=== PATIENT | female | born 1940 | race Caucasian/White ===

== ENCOUNTER 2022-09-28 08:10 | Emergency (ER) | payer MEDICARE, OTHER, SELFPAY ==
[2022-09-28 08:41] VITALS: PULSE 60; RESP 16; TEMP 36.6; O2SAT 98; BMI 25.2
[2022-09-28 10:44] VITALS: BP 123/64; PULSE 64; RESP 16; O2SAT 98
[2022-09-28 11:00] VITALS: BP 104/48; PULSE 64; RESP 16; TEMP 36.6; O2SAT 98
--- NOTE | 2022-09-28 11:14 | ED.GENADULT ---
HPI - General Adult General Time Seen by Provider: 11:14 Date Seen: 09/28/22 Chief complaint: Nausea/Vomiting Stated complaint: Nausea Time Seen by Provider: 09/28/22 11:07 Source: patient Mode of arrival: ambulatory Limitations: no limitations History of Present Illness HPI narrative: Patient is an 82 year white female has had 30 year history of nausea, when she was young she reports she had a history of migraine headaches, and thinks it went to her stomach. She has had imaging, endoscopy, without findings. Ene think this is related to anxiety, and she is on Wellbutrin for this. She sees Dr. Ladd for primary care, she denies any bowel change dysuria abdominal pain. She does feel nauseated very similar to what she has had over the last 30 years. She reports that she has not been able to eat much over the last couple of days. No dizziness no dehydration symptoms, no chest pain fever chills cough. No dysuria Related Data Home Medications Medication Instructions Recorded Confirmed alendronate 70 mg tablet 70 mg PO QWEEK 09/27/22 09/28/22 bupropion HCl 300 mg 24 hr tablet, tab PO 09/27/22 09/27/22 extended release hydrochlorothiazide 25 mg tablet 25 mg PO QDAY 09/27/22 09/27/22 lisinopril 10 mg tablet 10 mg PO QDAY 09/27/22 09/27/22 nystatin 100,000 unit/gram topical topical 09/27/22 09/27/22 powder ([facility]) simvastatin 40 mg tablet 40 mg PO QDAY 09/27/22 09/27/22 zolpidem 5 mg tablet 5 mg PO QHS PRN sleep 09/27/22 09/27/22 aspirin 81 mg capsule 81 mg PO DAILY 09/28/22 09/28/22 bupropion HCl 300 mg 24 hr tablet, 300 mg PO DAILY 09/28/22 09/28/22 extended release calcium carbonate 200 mg calcium 200 mg PO DAILY 09/28/22 09/28/22 (500 mg) chewable tablet (Antacid (calcium carbonate)) cyanocobalamin (vitamin B-12) 1,000 mcg PO DAILY 09/28/22 09/28/22 1,000 mcg capsule hydrochlorothiazide 25 mg tablet 25 mg PO DAILY 09/28/22 09/28/22 lisinopril 10 mg tablet 10 mg PO DAILY 09/28/22 09/28/22 simvastatin 40 mg tablet 40 mg PO QHS 09/28/22 09/28/22 zinc acetate 50 mg (zinc) capsule 50 mg PO DAILY 09/28/22 09/28/22 zolpidem 5 mg tablet 5 mg PO QHS 09/28/22 09/28/22 Allergies Allergy/AdvReac Type Severity Reaction Status Date / Time No Known Drug Allergies Allergy Verified 09/28/22 08:36 Review of Systems Status of ROS: Reports: 6 or more systems reviewed and unremarkable except as noted in History and below [facility] Social History Smoking Status: Former smoker How often do you have a drink containing alcohol: never AUDIT-C Alcohol total score: 0 Non-prescribed substance use: denies use service: No Exam Narrative: Exam Narrative: Objective: Patient alert orient x3 Vital signs unremarkable afebrile HEENT unremarkable Neck is supple Chest clear Pulse regular Abdomen benign soft nontender no masses no peritonitis Extremities are no edema Neurologic nonfocal Good peripheral perfusion noted Const: Vital Signs, click to edit/add: Vital Signs - 24 hr 09/28/22 08:41 09/28/22 10:44 09/28/22 11:00 Temperature 97.8 F 97.8 F Pulse Rate [Pulse Oximeter] 60 64 64 Respiratory Rate 16 16 16 Blood Pressure [Le ft Upper Arm] 123/64 104/48 L Pulse Oximetry 98 98 98 Oxygen Delivery Me thod Room Air Room Air Room Air 09/28/22 11:30 09/28/22 12:00 09/28/22 12:30 Temperature Pulse Rate [Pulse Oximeter] Respiratory Rate Blood Pressure [Le ft Upper Arm] 115/60 107/46 L 117/51 L Pulse Oximetry Oxygen Delivery Me thod Course Vital Signs Vital signs: Initial Vital Signs Temperature 97.8 F 09/28/22 08:41 Temperature Source Temporal Artery Scan 09/28/22 08:41 Pulse Rate 60 09/28/22 08:41 Pulse Rhythm 09/28/22 08:41 Pulse Strength 3+ Normal 09/28/22 08:41 Respiratory Rate 16 09/28/22 08:41 Pulse Oximetry 98 09/28/22 08:41 Oxygen Delivery Method 09/28/22 08:41 Vital Signs Temperature 97.8 F 09/28/22 08:41 Pulse Rate 60 09/28/22 08:41 Respiratory Rate 16 09/28/22 08:41 Pulse Oximetry 98 09/28/22 08:41 Oxygen Delivery Method 09/28/22 08:41 Temperature 97.8 F 09/28/22 11:00 Pulse Rate 64 09/28/22 11:00 Respiratory Rate 16 09/28/22 11:00 Blood Pressure 117/51 L 09/28/22 12:30 Pulse Oximetry 98 09/28/22 11:00 Oxygen Delivery Method 09/28/22 11:00 Medical Decision Making MDM Narrative Medical decision making narrative: Patient has a longstanding history of anxiety and nausea, she has had workup for her stomach in the past. This is similar episode that she has had the past. At this point with mutual decision making we decided to check some electrolytes and labs, IV hydration, IV Ativan and Zofran. She was comfortable this plan if her labs look reassuring I think we can let her go home for observation. Again she has no abdominal pain. She should meet with regular doctor next few days to rediscuss. Addendum: The patient's lab studies look reassuring, she feels little better will order go home, update regular doctor next couple of days return as needed. Lab Data Labs: Lab Results 09/28/22 09/28/22 Range/Units 11:50 11:50 WBC 7.72 (4.50-11.00) K/uL RBC 4.88 (4.00-5.20) m/uL Hgb 15.2 (12.0-16.0) gm/dL Hct 44.6 (33.0-51.0) % MCV 91 (80-100) fL MCH 31 (26-34) pg MCHC 34 (32-36) gm/dL RDW Coeff of Sahdy 12.2 (11.5-15.5) % Plt Count 266 (140-440) K/uL Neut % (Auto) 60.5 (42.0-72.0) % Lymph % (Auto) 27.3 (20-44) % [place] % (Auto) 10.8 (0.0-11.0) % Eos % (Auto) 1.0 (0.0-7.0) % Baso % (Auto) 0.1 (0.0-3.0) % Neut # (Auto) 4.67 (1.7-7.0) K/uL Lymph # (Auto) 2.11 (0.90-2.90) K/uL [place] # (Auto) 0.80 (0.00-0.90) K/UL Eos # (Auto) 0.08 (0.00-0.50) K/uL Baso # (Auto) 0.01 (0.00-0.30) K/uL Abs Immat Gran (auto) 0.02 (0.00-0.30) K/uL Imm/Tot Granulo (auto) 0.3 % Sodium 137 (135-149) mmol/L Potassium 4.1 (3.6-5.1) mmol/L Chloride 103 (96-114) mmol/L Carbon Dioxide 22 (20-32) mmol/L BUN 28 (7-30) mg/dL Creatinine 1.3 (0.5-1.5) mg/dL Estimated Creat Clear 29.80 Estimated GFR 42 ml/min Glucose 92 (60-115) mg/dL Calcium 9.6 (8.4-10.6) mg/dL Total Bilirubin 0.8 (0.1-1.5) mg/dL Direct Bilirubin 0.2 (0.0-0.5) mg/dL AST 34 (12-35) U/L ALT 29 (4-35) U/L Alkaline Phosphatase 88 (40-150) U/L C-Reactive Protein < 0.5 L (0.5-1.0) mg/dL Total Protein 7.8 (6.0-8.3) g/dL Albumin 4.9 (3.3-5.0) g/dL Amylase 73 (18-89) U/L Discharge Plan Discharge Clinical Impression: Nausea Patient Disposition: Home w/ Parent or Adult Condition: Improved Additional Instructions: Rest, light activity, resume diet as able, update regular doctor next couple of days, return to ED sooner problems or concerns Activity Level: Light activity Discharge Diet: Regular Diet Detail: Diet as tolerated Prescriptions: No Action lisinopril 10 mg tablet 10 mg PO QDAY zolpidem 5 mg tablet 5 mg PO QHS PRN (Reason: sleep) bupropion HCl 300 mg tablet extended release 24 hr PO nystatin [Nyamyc] 100,000 unit/gram powder topical hydrochlorothiazide 25 mg tablet 25 mg PO QDAY simvastatin 40 mg tablet 40 mg PO QDAY alendronate 70 mg tablet 70 mg PO QWEEK aspirin 81 mg capsule 81 mg PO DAILY bupropion HCl 300 mg tablet extended release 24 hr 300 mg PO DAILY calcium carbonate [Antacid (calcium carbonate)] 200 mg calcium (500 mg) tablet,chewable 200 mg PO DAILY cyanocobalamin (vitamin B-12) 1,000 mcg capsule 1,000 mcg PO DAILY hydrochlorothiazide 25 mg tablet 25 mg PO DAILY lisinopril 10 mg tablet 10 mg PO DAILY simvastatin 40 mg tablet 40 mg PO QHS zinc acetate 50 mg (zinc) capsule 50 mg PO DAILY zolpidem 5 mg tablet 5 mg PO QHS Follow Up/Referrals: Nisha Ladd MD [Primary Care Provider] - Stand Alone Forms: [facility] Info Instructions
[2022-09-28 11:30] VITALS: BP 115/60
[2022-09-28] MEDS: 0.9 % SODIUM CHLORIDE 1000 ml 1,000 ML 6000 ML IV (11:46)
[2022-09-28] MEDS: LORazepam 2 MG/ML inj 0.5 MG IVP (11:46)
[2022-09-28] MEDS: ONDANSETRON 2 MG/ML inj 4 MG IVP (11:46)
[2022-09-28 11:56] LABS: Basophils Absolute Auto 0.01 K/uL (0.00-0.30); Basophils Percent Auto 0.1 % (0.0-3.0); Eosinophils Absolute Auto 0.08 K/uL (0.00-0.50); Hematocrit 44.6 % (33.0-51.0); Hemoglobin* 15.2 gm/dL (12.0-16.0); Immature Granulocytes Abs Auto 0.02 K/uL (0.00-0.30); Immature Granulocytes Pct Auto 0.3 %; Lymphocytes Absolute Auto 2.11 K/uL (0.90-2.90); Lymphocytes Percent Auto 27.3 % (20-44); Mean Corpuscular HGB Conc 34 gm/dL (32-36); Mean Corpuscular Hemoglobin 31 pg (26-34); Mean Corpuscular Volume 91 fL (80-100); Monocytes Percent Auto 10.8 % (0.0-11.0); Neutrophils Absolute Auto 4.67 K/uL (1.7-7.0); Neutrophils Percent Auto 60.5 % (42.0-72.0); Platelet Count* 266 K/uL (140-440); RDW Coefficient of Variation % 12.2 % (11.5-15.5); Red Blood Count 4.88 m/uL (4.00-5.20); White Blood Count* 7.72 K/uL (4.50-11.00)
[2022-09-28 11:59] LABS: Slide Review Reflex No
[2022-09-28 12:00] VITALS: BP 107/46
[2022-09-28 12:14] LABS: Albumin* 4.9 g/dL (3.3-5.0); Chloride* 103 mmol/L (96-114); Potassium* 4.1 mmol/L (3.6-5.1); Sodium* 137 mmol/L (135-149)
[2022-09-28 12:16] LABS: Amylase* 73 U/L (18-89)
[2022-09-28 12:17] LABS: Aspartate Amino Transferase* 34 U/L (12-35); Bilirubin Direct* 0.2 mg/dL (0.0-0.5); Bilirubin Total* 0.8 mg/dL (0.1-1.5); Blood Urea Nitrogen* 28 mg/dL (7-30); Carbon Dioxide* 22 mmol/L (20-32); Creatinine* 1.3 mg/dL (0.5-1.5); Estimated Glomerular Filt Rate 42 ml/min; Total Protein* 7.8 g/dL (6.0-8.3)
[2022-09-28 12:18] LABS: Alanine Aminotransferase* 29 U/L (4-35); Alkaline Phosphatase* 88 U/L (40-150); Calcium* 9.6 mg/dL (8.4-10.6); Glucose* 92 mg/dL (60-115)
--- OUTSIDE RECORDS SUMMARY | 2022-09-28 12:18 | XMS_ITS | Clinical Summary ---
:1940 Author Organization [facility] [place] [address] Care Team Providers Name Role Phone Linette Cotter Unavailable [phone] Shaggy Albrecht MD Unavailable Sridhar La Unavailable Nisha Ladd MD Primary Care Provider Allergies No known active allergies Medications Medication Sig Dispensed Refills Start End Status Date Date aspirin (ECOTRIN) 81 mg Take 1 0 04/25/20 Active enteric coated tablet tablet by 17 mouth once daily with a meal. calcium carbonate Take 1 0 04/25/20 Ac tive (CALCIUM ANTACID) 200 mg tablet by 17 calcium (500 mg) mouth once chewable tablet daily. cyanocobalamin (VITAMIN Take 1 90 tablet 0 04/03/20 Active B-12) 1,000 mcg tablet by 19 tabletIndications: B12 mouth once deficiency daily. hydroCHLOROthiazide Take 1 90 Tablet 3 02/16/20 Active (HCTZ) 25 mg Tablet (25 22 tabletIndications: mg) by mouth Essential hypertension once daily. simvastatin (ZOCOR) 40 Take 1 90 tablet. 3 02/16/20 Active mg tabletIndications: Tablet (40 22 Pure mg) by mouth hypercholesterolemia at bedtime. alendronate (FOSAMAX) 70 Take 1 12 tablet. 3 02/16/20 Active mg tabletIndications: Tablet (70 22 Compression fracture of mg) by mouth twelfth thoracic once a week vertebra with routine in the healing, Osteoporosis, morning. unspecified osteoporosis Take on type, unspecified empty pathological fracture stomach with presence full glass of water. Do not lie down for 1 hr. miscellaneous medical As directed. 1 Each 0 02/16/20 Active supply (Blood Pressure 22 Cuff) miscIndications: Essential hypertension durable medical Automated 1 Each 0 02/16/20 Acti ve equipment home BP 22 (DME)Indications: cuff. Length Essential hypertension of need: 99 lisinopriL (PRINIVIL; Take 1 90 Tablet 3 03/15/20 Active ZESTRIL) 10 mg Tablet (10 22 tabletIndications: mg) by mouth Essential hypertension once daily. buPROPion (WELLBUTRIN TAKE ONE 90 tablet. 3 04/16/20 Active XL) 300 mg TABLET BY 22 Extended-Release MOUTH EVERY tabletIndications: MORNING PT Moderate episode of will call recurrent major when needed depressive disorder (HC) [facility] APPLY ONE 60 g 9 05/26/20 Active powderIndications: Yeast STRIP 22 infection of the skin TOPICALLY TO AFFECTED AREA(S) THREE TIMES DAILY zolpidem (AMBIEN) 5 mg TAKE ONE 30 Tablet 0 09/15/20 Active tabletIndications: TABLET BY 22 Anxiety state MOUTH AT BEDTIME NEEDED FOR SLEEP zinc 50 mg tablet Take 1 0 09/23/20 Ac tive Tablet (50 22 mg) by mouth once daily. zolpidem (AMBIEN) 5 mg TAKE ONE 30 Tablet 0 01/09/20 Discontinued tabletIndications: TABLET BY 022 Anxiety state MOUTH EVERY DAY AT BEDTIME NEEDED FOR SLEEP mirtazapine (REMERON) 15 TAKE 15 Tablet 0 05/17/2009/23 Discontinued mg tabletIndications: ONE-HALF 022 (*Med Moderate episode of TABLET (7.5 ineffective) recurrent major MG) BY MOUTH depressive disorder (HC) AT BEDTIME busPIRone (BUSPAR) 15 mg TAKE ONE 180 Tablet 0 08/14/20 12/0 10/25 Discontinued tabletIndications: TABLET BY 022 ( *Med Generalized anxiety MOUTH EVERY ineffective) disorder MORNING AND TAKE TWO TABLETS BY MOUTH AT BEDTIME Active Problems Problem Noted Date Major depression, recurrent 07/31/2018 Generalized anxiety disorder 07/31/2018 Compression fracture of twelfth thoracic vertebra with routine healing 06/15/2016 Overview: Fosamax 07/2016, continue x10 years. Osteopenia 06/15/2016 Pyoderma gangrenosa 02/19/2013 Irritable bowel syndrome 08/05/2011 Overview: GI consult from 05/2010 Prediabetes 06/24/2011 Anxiety state, unspecified 05/13/2011 Major depression, recurrent 04/08/2011 PLMD (periodic limb movement disorder) 08/31/2010 RAFAELA 07/2010 AHI-12 PLMD found as well 08/31/2010 Colon polyp 04/21/2010 Overview: Colonoscopy 2002 - repeat in 5 years rec ommended Colonoscopy 04/2008 - no polyps seen, rep eat 5 years given hx of polyp Colonoscopy 07/2013 diverticulosis repea t in 5 years CAD (coronary artery disease) 09/18/2008 Postsurgical percutaneous transluminal coronary angiop lasty status 06/07/2007 Overview: -04/21/07 S/P 1. Left main, Circumflex, R CA: Normal. 2. LAD: Normal vessel, but w/ a long narrow distal vessel which is intramyocardial w/ mild bridging. 5. LV: Normal L vent EF, LVEF of 65% w/ no focal wall motion abnormality. LVEDP 17 pre & 16 post L ventriculogram.(Dr Lawson) Esophageal reflux Overview: EGD 02/2009 Reactive gastropathy Unspecified essential hypertension Pure hypercholesterolemia Other nonspecific abnormal cardiovascular system funct ion study Overview: Stress echocardiogram 04/14/07 Stress test terminated due to an 8 beat run of VT Negative subjectively Echo images revealed LV dilatation and e xercise induced global hypokinesia at low workload CTA 04/18/07 Moderate, nonobstructive CAD EF 75% with no regional WMA Stress echocardiogram 04/21/07 LV dilatation with SVT (verbal report fr Dr. Nash) Obesity, unspecified Resolved Problems Problem Noted Date Resolved Date Major depressive disorder, recurrent episode, severe, 201011/21/2012 without mention of psychotic behavior RAFAELA 07/2010 AHI-12 08/31/2010 08/31/2010 RAFAELA 07/2010 AHI-12 08/31/2010 08/31/2010 NONSUSTAINED VENTRICULAR TACHYCARDIA 06/07/2007 Depressive disorder, not elsewhere classified 11/21/2012 Other and unspecified angina pectoris Encounters Date Type Specialty Care Team Description 09/23/2022 Office Visit FlorValJessica w Up DIRECTOR OF PERSONNEL 09/23/2022 Travel 09/12/2022 Refill Nisha Ladd, Fiordalizai ll Request (Zolpidem) 08/13/2022 Refill Val Ray Refil l Request (Buspirone) DIRECTOR OF PERSONNEL from Last 3 Months Immunizations Name Administration Dates Next Due AMB Influenza, IIV3 (Age >=3 08/22/2008 years)(Flu Clinic Only) AMB Influenza, IIV4 PF (=>6 mos 08/02/2013 Flulaval,Fluzone Fluarix)(Flu Clinic Only) Amb Influenza, Inactivated AIIV4 (Age 1008/07/2020 65+ Years) Preserv Free COVID-19 vaccine (Morph[employer]abs 02/15/2022 30mcg/0.3mL) 12YO+ ED-SUCROSE PF, MDV COVID-19 vaccine (Morphlabs 01/21/2021, 12/31/2020 30mcg/0.3mL) PF, MDV Influenza A (H1N1), Inactivated (Age 0110/28/2009 >=3 Years) Influenza, High-dose Inactivated 08/16/2016, 07/15/2015, 03/2014 Influenza, IIV3 (Age >=3 years) 08/25/2012, 08/05/2011, 04/2010, 10/28/2009, 09/01/2007 Influenza, Inactivated AIIV4 (Age 65+ 07/27/2021 Years) Preserv Free Influenza, Inactivated IIV3 (Age 65+ 07/31/2019, 07/17/2018, 08/15/2017 Years) Preserv Free Pneumococcal Poly,23-Valent 06/10/2008 (Pneumovax) Pneumococcal conj 13-Valent (Prevnar 07/15/2015 13) Td (Age >=7 Years) 04/19/2005 Tdap 06/18/2011 Zoster (Shingrix-RZV, recombinant) 10/31/2020, 08/11/2020 Family History Medical History Relation Name Comments Heart Disease Maternal Grandfather NH 60' s Heart Disease Mother stent Hyperlipidemia Mother Cancer-breast No Family History Relation Name Status Comments Maternal Grandfather Mother Social History Tobacco Use Types Packs/Day Years Used Date Former Smoker Cigarettes 1 20 Quit: 10/24/18 92 Smokeless Tobacco: Never Used Tobacco Cessation: Counseling Given: Yes Comments: quit many years ago Alcohol Use Standard Drinks/Week Comments No 0 (1 standard drink = 0.6 oz pure alcoho l) very rare Alcohol Habits Answer Date Recorded How often do you have a drink containing alcohol? Not asked How many drinks containing alcohol do you have on a typical Not asked day when you are drinking? How often do you have six or more drinks on one occasion? 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 Temperature 36.8 ??C (98.2 ??F) 06/17/2020 1:58 PM CDT Respiratory Rate 20 11/19/2019 1:45 PM 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 IRONWORKER HELPER Oxygen Saturation 99% 04/16/2022 11:38 AM CDT Inhaled Oxygen Concentration - - Weight 68.2 kg (150 lb 6.4 oz) 09/23/2022 3:26 PM 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 Height 157.5 cm (5' 2) 05/13/2021 3:00 PM CDT Body Mass Index 27.51 05/13/2021 3:00 PM CDT Plan of Treatment Upcoming Encounters Date Type Specialty Care Team Description 11/02/2022 Office Visit Val Ray NP [address] [place], [place] [phone] (Wo rk) Health Maintenance Due Date Last Done Comments Medicare Wellness for age 65+ 11/22/2020 11/23/2019, 2015, 06/17/2011 Tetanus booster 06/18/2021 06/18/2011, 04/19/2005 BMI (ht and wt on same day) for 05/13/2022 05/13/2021, 11/24, age 18+ 03/25/2020, Additional history exists Influenza for age 65+ 06/24/2022 07/27/2021, 08/07/2020, 07/31/2019, Additional history exists Depression screening for age 12+ 09/23/2023 09/23/2022, , 02/16/2022, Additional history exists Tdap Completed 06/18/2011 Pneumococcal series for age 65+ Completed 07/15/2015, 05/24 Zoster (shingles) series for age Completed 10/31/2020, 50+ DEXA/DXA scan for age 65+ Completed 02/16/2022, 03/09/2016 , 08/17/2011, Additional history exists COVID-19 vaccine series Completed 07/26/2022, 02/15/2022, 08/04/2021, Additional history exists Results Not on filefrom Last 3 Months Insurance Payer Benefit Plan / Subscriber ID Effective Dates Phone Addre ss Type Group MEDICARE PART B MEDICARE PART B [id number] 2007-Present ATTN: CLAIMS - HB USE ONLY HB ONLY [address] [place] [address] MEDICA MR MEDICA PRIME [id number] 2014-Present [address] [address] [place] [address] Advance Directives Documents on File Type Date Recorded 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
[2022-09-28 12:23] LABS: C Reactive Protein* < 0.5 mg/dL (0.5-1.0)
[2022-09-28 12:30] VITALS: BP 117/51
== END 2022-09-28 12:44 | disposition home or self-care (01) ==
LOC: ED 11:36
PROVIDERS: Emergency Provider Family Medicine; PCP Family Medicine
DX: R11.0 Nausea (principal)
CPT/HCPCS: 36415; 80048; 80076; 82150; 85025; 86140; 96374; 96375; 99283; 99284; J2060; J2405; J7030

== ENCOUNTER 2022-10-23 12:49 | Emergency (ER) | payer MEDICARE, OTHER, SELFPAY ==
[2022-10-23] VITALS (17 sets, daily range): BP systolic 98–138; BP diastolic 44–88; PULSE 60–91; RESP 18–22; TEMP 36.3; O2SAT 98–100; BMI 25.6
--- NOTE | 2022-10-23 13:20 | ED.GENADULT ---
HPI - General Adult General Time Seen by Provider: 13:20 Date Seen: 10/23/22 Chief complaint: Weakness Stated complaint: Can't eat or drink, shaking Time Seen by Provider: 10/23/22 12:51 Source: patient and RN notes reviewed Mode of arrival: ambulatory Limitations: no limitations History of Present Illness HPI narrative: Patient is an 82-year-old female coming in with her daughter with complaint of nausea that is worsening. She has an oral medicine that she uses that dissolves in her mouth that isn't helping any longer. She admits this is been present for years. She does not think she has had a scope recently. She has had about a 50 lb weight loss in the last year. Her daughter told nursing staff that she feels it might be her depression. Patient quit her antidepressant of few months ago. She just can not eat due to the nausea. Denies any blood in stools. No abdominal pain with this. No headaches. She has not been remotely sick with this. Patient states she is coming to the ER as she cannot get into the clinic, it is difficult to get into the clinic. She does have an upcoming appointment this coming Tuesday next week. Related Data Home Medications Medication Instructions Recorded Confirmed alendronate 70 mg tablet 70 mg PO QWEEK 09/27/22 09/28/22 bupropion HCl 300 mg 24 hr tablet, tab PO 09/27/22 09/27/22 extended release hydrochlorothiazide 25 mg tablet 25 mg PO QDAY 09/27/22 09/27/22 lisinopril 10 mg tablet 10 mg PO QDAY 09/27/22 09/27/22 nystatin 100,000 unit/gram topical topical 09/27/22 09/27/22 powder ([facility]) simvastatin 40 mg tablet 40 mg PO QDAY 09/27/22 09/27/22 zolpidem 5 mg tablet 5 mg PO QHS PRN sleep 09/27/22 09/27/22 aspirin 81 mg capsule 81 mg PO DAILY 09/28/22 09/28/22 bupropion HCl 300 mg 24 hr tablet, 300 mg PO DAILY 09/28/22 09/28/22 extended release calcium carbonate 200 mg calcium 200 mg PO DAILY 09/28/22 09/28/22 (500 mg) chewable tablet (Antacid (calcium carbonate)) cyanocobalamin (vitamin B-12) 1,000 mcg PO DAILY 09/28/22 09/28/22 1,000 mcg capsule hydrochlorothiazide 25 mg tablet 25 mg PO DAILY 09/28/22 09/28/22 lisinopril 10 mg tablet 10 mg PO DAILY 09/28/22 09/28/22 simvastatin 40 mg tablet 40 mg PO QHS 09/28/22 09/28/22 zinc acetate 50 mg (zinc) capsule 50 mg PO DAILY 09/28/22 09/28/22 zolpidem 5 mg tablet 5 mg PO QHS 09/28/22 09/28/22 Allergies Allergy/AdvReac Type Severity Reaction Status Date / Time No Known Drug Allergies Allergy Verified 10/23/22 13:05 [facility] Social History Smoking Status: Former smoker How often do you have a drink containing alcohol: never AUDIT-C Alcohol total score: 0 Non-prescribed substance use: denies use service: No Exam Const: Vital Signs, click to edit/add: Vital Signs - 24 hr 10/23/22 13:07 10/23/22 14:02 10/23/22 13:36 Temperature 97.4 F L Pulse Rate 61 Pulse Rate [Pulse Oximeter] 76 91 Respiratory Rate 22 18 Blood Pressure Blood Pressure [Ri ght Forearm] 138/84 98/62 Pulse Oximetry 98 100 [facility] 10/23/22 14:00 10/23/22 14:02 10/23/22 14:15 Temperature Pulse Rate 61 61 60 Pulse Rate [Pulse Oximeter] Respiratory Rate Blood Pressure 98/62 Blood Pressure [Ri ght Forearm] Pulse Oximetry 100 99 100 Oxygen Delivery Me od 10/23/22 14:30 10/23/22 14:31 10/23/22 14:45 Temperature Pulse Rate 62 62 63 Pulse Rate [Pulse Oximeter] Respiratory Rate Blood Pressure 105/56 L Blood Pressure [Ri ght Forearm] Pulse Oximetry 100 100 99 Oxygen Delivery Me thod 10/23/22 15:00 10/23/22 15:02 10/23/22 15:15 Temperature Pulse Rate 62 62 62 Pulse Rate [Pulse Oximeter] Respiratory Rate Blood Pressure 105/88 Blood Pressure [Ri ght Forearm] Pulse Oximetry 99 100 98 Oxygen Delivery Me od 10/23/22 15:30 10/23/22 15:32 Temperature Pulse Rate 62 62 Pulse Rate [Pulse Oximeter] Respiratory Rate Blood Pressure 116/44 L Blood Pressure [Ri ght Forearm] Pulse Oximetry 100 100 Oxygen Delivery Me thod Documenting provider has reviewed patient's vital signs: yes Common normals: no apparent distress, average body habitus, oriented x3, no limitations, healthy appearing and alert General appearance: cooperative, comfortable, well kempt and well developed HENMT: Common normals: normocephalic, head/scalp atraumatic, hearing grossly normal bilaterally, external ears normal, external nose normal, nasal mucous membranes and turbinates normal, moist oral mucous membranes, oropharynx normal, dentition normal and gingiva normal Head and scalp: normocephalic and atraumatic Nose: external nose normal and nasal mucous membranes and turbinates normal External ear: external ears normal Eye: Common normals: PERRL, EOMs intact bilaterally, conjunctivae normal and no scleral icterus Conjunctiva: conjunctiva(e) normal Pupil: PERRL Neck & C-Spine: Common normals: full ROM, no lymphadenopathy, supple, no meningeal signs, no JVD and thyroid normal Thyroid: thyroid normal Chest: Common normals: inspection of chest normal (Mild kyphosis) Resp: Common normals: normal respiratory effort, no retractions, no use of accessory muscles and clear to auscultation bilaterally Effort & inspection: able to speak in complete sentences Auscultation: clear to auscultation bilaterally Cardio: Common normals: no JVD, regular rate, regular rhythm, S1 normal heart sound, S2 normal heart sound, no gallops, no clicks and no murmurs Rate: regular rate Rhythm: regular rhythm Heart sounds: S1 normal and S2 normal GI: Common normals: Normal to inspection, nondistended, normoactive bowel sounds present, soft to palpation, non-tender, no hepatosplenomegaly and no masses Palpation: soft and no hepatosplenomegaly Extremity: Common normals: normal to inspection, full ROM, normal capillary refill, no joint enlargement, no clubbing, cyanosis or edema, no calf tenderness and no pedal edema Neuro: Common normals: oriented x3 Sensorium/orientation: alert Meningeal signs: no meningeal signs Psych: Appearance: well kempt Course Course Hospital Course: Will initiate some IV fluids, give her IV Zofran. We will do baseline labs including a TSH. The workup of nausea in itself can be extensive. Labs are normal, do not know that she requires any emergent intervention. She may need endoscopy which would not happen emergently in her setting. She clinically is not indicated to have this emergently. Head imaging could be considered but without any other symptoms, doubt that is going to elucidate anything significant. Likewise, same train of thought for me on abdominal imaging. She is not having any abdominal pain with this. Reevaluation(s) Reevaluation #1: Have reviewed with patient and her daughter that her labs are looking normal at this time. They wanted to know how dehydrated she looked down labs. Reviewed with them that her BUN and her bicarb were normal, thus not clinically looking that significantly dehydrated. We did review that we had not obtained urinalysis. Patient does not really feel like urinary symptoms would be the cause of her chronic nausea. I would tend to agree with her. We discussed head CT imaging, she used to have headaches and stated that the headaches went away and then the nausea started. The nausea has been going on for years. She has tried omeprazole before, did not feel like it helped. She does not feel like the IV Zofran helped. Reviewed with her that coming to the ER is part of a problem in a chronic issue like this. I do not know what medicines have been tried, do not have a good grasp of what she is failed in the past. As far as abdominal imaging, she has maybe had 2 episodes of emesis over the last 3 months, emesis is not common for her. She has no abdominal pain. Thus, do not feel that CT imaging of her abdomen is needed emergently at this time in the setting of normal labs and a completely normal abdominal exam. Did offer to consider putting her on a proton pump inhibitor but given that she states she has tried omeprazole and it did not work, feel she maybe be best suited to work through some of this with her upcoming appointment with her doctor on Tuesday. Can give her a small prescription for Compazine and see if that does help her. Time: 14:47 Reevaluation #2: Reviewed with patient and her daughter that the TSH is mildly suppressed but the free T4 is normal. We are waiting the free T3 result but that is a send out and will not be back for days. It is possible she could have some form of hyper thyroidism which certainly can cause nausea. She has no other cardiac complications like tachycardia at this time. She has a clinic follow-up in on Tuesday and will discharge for further outpatient evaluation. Time: 15:57 Vital Signs Vital signs: Initial Vital Signs Temperature 97.4 F L 10/23/22 13:07 Temperature Source Temporal Artery Scan 10/23/22 13:07 Pulse Rate 76 10/23/22 13:07 Pulse Rhythm 10/23/22 13:07 Respiratory Rate 22 10/23/22 13:07 Blood Pressure 138/84 10/23/22 13:07 Blood Pressure Mean 102 10/23/22 13:07 Blood Pressure Position Supine 10/23/22 13:07 Pulse Oximetry 98 10/23/22 13:07 Oxygen Delivery Method 10/23/22 13:07 Vital Signs Temperature 97.4 F L 10/23/22 13:07 Pulse Rate 76 10/23/22 13:07 Respiratory Rate 22 10/23/22 13:07 Blood Pressure 138/84 10/23/22 13:07 Pulse Oximetry 98 10/23/22 13:07 Oxygen Delivery Method 10/23/22 13:07 Temperature 97.4 F L 10/23/22 13:07 Pulse Rate 62 10/23/22 15:32 Respiratory Rate 18 10/23/22 14:02 Blood Pressure 116/44 L 10/23/22 15:32 Pulse Oximetry 100 10/23/22 15:32 Oxygen Delivery Method 10/23/22 14:02 Medical Decision Making Lab Data Lab results reviewed: Yes I reviewed the patient's lab results Labs: Lab Results 10/23/22 10/23/22 10/23/22 Range/Units 13:40 13:40 13:40 WBC 7.50 (4.50-11.00) K/uL RBC 4.75 (4.00-5.20) m/uL Hgb 14.8 (12.0-16.0) gm/dL Hct 44.1 (33.0-51.0) % MCV 93 (80-100) fL MCH 31 (26-34) pg MCHC 34 (32-36) gm/dL RDW Coeff of Shady 12.3 (11.5-15.5) % Plt Count 236 (140-440) K/uL Neut % (Auto) 64.1 (42.0-72.0) % Lymph % (Auto) 22.9 (20-44) % Oliver % (Auto) 11.2 H (0.0-11.0) % Eos % (Auto) 1.3 (0.0-7.0) % Baso % (Auto) 0.1 (0.0-3.0) % Neut # (Auto) 4.80 (1.7-7.0) K/uL Lymph # (Auto) 1.72 (0.90-2.90) K/uL Oliver # (Auto) 0.80 (0.00-0.90) K/UL Eos # (Auto) 0.10 (0.00-0.50) K/uL Baso # (Auto) 0.01 (0.00-0.30) K/uL Sodium 138 (135-149) mmol/L Potassium 4.1 (3.6-5.1) mmol/L Chloride 107 (96-114) mmol/L Carbon Dioxide 22 (20-32) mmol/L BUN 21 (7-30) mg/dL Creatinine 1.5 (0.5-1.5) mg/dL Estimated Creat Clear 23.66 Estimated GFR 35 ml/min Glucose 81 (60-115) mg/dL Lactate 1.5 (0.5-1.9) mmol/L Calcium 10.3 (8.4-10.6) mg/dL Total Bilirubin 0.8 (0.1-1.5) mg/dL AST 24 (12-35) U/L ALT 24 (4-35) U/L Alkaline Phosphatase 89 (40-150) U/L C-Reactive Protein < 0.5 L (0.5-1.0) mg/dL NT-Pro-B Natriuret Pep 359 pg/mL Total Protein 7.5 (6.0-8.3) g/dL Albumin 4.6 (3.3-5.0) g/dL Lipase 100 (23-300) U/L TSH (0.270-4.200) uIU/mL Free T4 (0.70-1.85) ng/dL SARS-CoV-2 (PCR) (Negative) POC Troponin I (0.01-0.04) ng/ml 10/23/22 10/23/22 10/23/22 Range/Units 13:40 13:40 13:45 WBC (4.50-11.00) K/uL RBC (4.00-5.20) m/uL Hgb (12.0-16.0) gm/dL Hct (33.0-51.0) % MCV (80-100) fL MCH (26-34) pg MCHC (32-36) gm/dL RDW Coeff of Shady (11.5-15.5) % Plt Count (140-440) K/uL Neut % (Auto) (42.0-72.0) % Lymph % (Auto) (20-44) % Oliver % (Auto) (0.0-11.0) % Eos % (Auto) (0.0-7.0) % Baso % (Auto) (0.0-3.0) % Neut # (Auto) (1.7-7.0) K/uL Lymph # (Auto) (0.90-2.90) K/uL Oliver # (Auto) (0.00-0.90) K/UL Eos # (Auto) (0.00-0.50) K/uL Baso # (Auto) (0.00-0.30) K/uL Sodium (135-149) mmol/L Potassium (3.6-5.1) mmol/L Chloride (96-114) mmol/L Carbon Dioxide (20-32) mmol/L BUN (7-30) mg/dL Creatinine (0.5-1.5) mg/dL Estimated Creat Clear Estimated GFR ml/min Glucose (60-115) mg/dL Lactate (0.5-1.9) mmol/L Calcium (8.4-10.6) mg/dL Total Bilirubin (0.1-1.5) mg/dL AST (12-35) U/L ALT (4-35) U/L Alkaline Phosphatase (40-150) U/L C-Reactive Protein (0.5-1.0) mg/dL NT-Pro-B Natriuret Pep pg/mL Total Protein (6.0-8.3) g/dL Albumin (3.3-5.0) g/dL Lipase (23-300) U/L TSH 0.079 L (0.270-4.200) uIU/mL Free T4 1.22 (0.70-1.85) ng/dL SARS-CoV-2 (PCR) Negative SARS-CoV-2 (Negative) POC Troponin I 0.00 L (0.01-0.04) ng/ml Critical Care Time Critical Care Time Critical Care Time: No Discharge Plan Discharge Clinical Impression: Chronic nausea, Abnormal TSH Patient Disposition: Home, Self-Care Condition: Stable Instructions: Hyperthyroidism (ED), Acute Nausea and Vomiting (ED) Additional Instructions: Your TSH was mildly suppressed at 0.079 but the free T4 was normal at 1.22. We have a free T3 level pending but that is a send out test. You need to keep your clinic appointment for this coming Tuesday. Can try Compazine and see if that helps your nausea. If you feel you are worsening in the interim, have new concerns, please seek re-evaluation and in the ED if need be. If the free T3 level does come back elevated, this could signify that you are developing hyper thyroidism. Endocrinology referral may be needed in this situation. Prescriptions: No Action lisinopril 10 mg tablet 10 mg PO QDAY zolpidem 5 mg tablet 5 mg PO QHS PRN (Reason: sleep) bupropion HCl 300 mg tablet extended release 24 hr PO nystatin [Nyamyc] 100,000 unit/gram powder topical hydrochlorothiazide 25 mg tablet 25 mg PO QDAY simvastatin 40 mg tablet 40 mg PO QDAY alendronate 70 mg tablet 70 mg PO QWEEK aspirin 81 mg capsule 81 mg PO DAILY bupropion HCl 300 mg tablet extended release 24 hr 300 mg PO DAILY calcium carbonate [Antacid (calcium carbonate)] 200 mg calcium (500 mg) tablet,chewable 200 mg PO DAILY cyanocobalamin (vitamin B-12) 1,000 mcg capsule 1,000 mcg PO DAILY hydrochlorothiazide 25 mg tablet 25 mg PO DAILY lisinopril 10 mg tablet 10 mg PO DAILY simvastatin 40 mg tablet 40 mg PO QHS zinc acetate 50 mg (zinc) capsule 50 mg PO DAILY zolpidem 5 mg tablet 5 mg PO QHS Follow Up/Referrals: Nisha Ladd MD [Primary Care Provider] - Stand Alone Forms: [employer] Info Instructions
[2022-10-23] MEDS: ONDANSETRON 2 MG/ML inj 4 MG IVP (13:58)
[2022-10-23] MEDS: 0.9 % SODIUM CHLORIDE 1000 ml 1,000 ML 500 ML IV (13:58)
[2022-10-23 14:00] LABS: Lactate* 1.5 mmol/L (0.5-1.9)
[2022-10-23 14:03] LABS: Basophils Absolute Auto 0.01 K/uL (0.00-0.30); Basophils Percent Auto 0.1 % (0.0-3.0); Eosinophils Percent Auto 1.3 % (0.0-7.0); Hematocrit 44.1 % (33.0-51.0); Hemoglobin* 14.8 gm/dL (12.0-16.0); Immature Granulocytes Abs Auto 0.03 K/uL (0.00-0.30); Immature Granulocytes Pct Auto 0.4 %; Lymphocytes Absolute Auto 1.72 K/uL (0.90-2.90); Lymphocytes Percent Auto 22.9 % (20-44); Mean Corpuscular HGB Conc 34 gm/dL (32-36); Mean Corpuscular Hemoglobin 31 pg (26-34); Mean Corpuscular Volume 93 fL (80-100); Monocytes Percent Auto 11.2 % (0.0-11.0); Neutrophils Percent Auto 64.1 % (42.0-72.0); Platelet Count* 236 K/uL (140-440); RDW Coefficient of Variation % 12.3 % (11.5-15.5); Red Blood Count 4.75 m/uL (4.00-5.20)
[2022-10-23 14:07] LABS: Slide Review Reflex No
[2022-10-23 14:26] LABS: Albumin* 4.6 g/dL (3.3-5.0); Chloride* 107 mmol/L (96-114)
[2022-10-23 14:27] LABS: Potassium* 4.1 mmol/L (3.6-5.1); Sodium* 138 mmol/L (135-149)
[2022-10-23 14:29] LABS: Alkaline Phosphatase* 89 U/L (40-150); Aspartate Amino Transferase* 24 U/L (12-35); Bilirubin Total* 0.8 mg/dL (0.1-1.5); Carbon Dioxide* 22 mmol/L (20-32); Creatinine* 1.5 mg/dL (0.5-1.5); Est. Creatinine Clearance* 23.66; Estimated Glomerular Filt Rate 35 ml/min; Total Protein* 7.5 g/dL (6.0-8.3)
[2022-10-23 14:29] LABS: SARS PCR* Negative SARS-CoV-2 (Negative)
[2022-10-23 14:30] LABS: Alanine Aminotransferase* 24 U/L (4-35); Blood Urea Nitrogen* 21 mg/dL (7-30); Calcium* 10.3 mg/dL (8.4-10.6); Glucose* 81 mg/dL (60-115); Lipase* 100 U/L (23-300)
[2022-10-23 14:35] LABS: C Reactive Protein* < 0.5 mg/dL (0.5-1.0)
[2022-10-23 14:40] LABS: NT Pro B Type NatriureticPept* 359 pg/mL
[2022-10-23 15:01] LABS: TSH With Reflex to FT4* 0.079 uIU/mL (0.270-4.200)
[2022-10-23 15:35] LABS: Free T4 Free Thyroxine* 1.22 ng/dL (0.70-1.85)
[2022-10-26 05:51] LABS: Free T3 3.2 pg/mL (2.5-4.3)
== END 2022-10-23 16:17 | disposition home or self-care (01) ==
PROVIDERS: Emergency Provider Family Medicine; PCP Family Medicine
DX: R11.0 Nausea (principal)
CPT/HCPCS: 36415; 80053; 83605; 83690; 83880; 84439; 84443; 84481; 84484; 85025; 86140; 87635; 94761; 96374; 99284; J2405; J7030

== ENCOUNTER 2022-11-09 09:11 | Outpatient (CLI) | payer MEDICARE, OTHER, SELFPAY ==
[2022-11-09 11:21] LABS: Creatinine* 1.8 mg/dL (0.5-1.5); Estimated Glomerular Filt Rate 28 ml/min
== END 2022-11-09 09:12 | disposition home or self-care (01) ==
LOC: CT 09:13
PROVIDERS: PCP Family Medicine; Visit Provider Internal Medicine Gastroenterology
DX: R11.2 Nausea with vomiting, unspecified (principal); K44.9 Diaphragmatic hernia without obstruction or gangrene
CPT/HCPCS: 36415; 82565

== ENCOUNTER 2022-11-11 07:47 | Outpatient (CLI) | payer MEDICARE, OTHER, SELFPAY ==
--- NOTE | 2022-11-11 08:00 | CRLHL7_ITS ---
For Patients: As a result of the Century Cures Act, medical imaging exams and procedure reports are released immediately into your electronic medical record. You may view this report before your referring provider. If you have questions, please contact your health care provider. Indication: NAUSEA AND VOMITING IN ADULT Technique: Noncontrast CT abdomen and pelvis Please note that all CT scans at this facility use dose modulation, iterative reconstruction, and/or weight-based dosing when appropriate to reduce radiation dose to as low as reasonably achievable. Comparison: 06/17/2010 Findings: Lung bases are clear. Mitral annular calcifications. 4.6 cm hiatal hernia. Gallbladder absent. No biliary obstruction. Spleen is normal. Normal adrenal glands. Kidneys are normal. Mild pancreatic atrophy. Atherosclerotic disease. No aneurysm. Subcentimeter retroperitoneal lymph nodes. Bladder nondistended. Normal uterus. Ovaries normal. No bowel obstruction, free air, free fluid or abscess. The appendix is normal. T12 compression fracture, moderate. This appears chronic although new since 2009. Impression: No evidence of bowel obstruction or enteritis/colitis. 4.6 cm hiatal hernia. Status post cholecystectomy without evidence of common bowel duct stone. Chronic T12 fracture. No evidence of significant constipation. Please note that all CT scans at this facility use dose modulation, iterative reconstruction, and/or weight-based dosing when appropriate to reduce radiation dose to as low as reasonably achievable. Dictated by Jesus Daniel MD @ 11/11/2022 10:06:50 AM (Electronically Signed)
== END 2022-11-11 07:48 | disposition home or self-care (01) ==
PROVIDERS: PCP Family Medicine; Visit Provider Internal Medicine Gastroenterology
DX: R11.2 Nausea with vomiting, unspecified (principal); K44.9 Diaphragmatic hernia without obstruction or gangrene
CPT/HCPCS: 74176

== ENCOUNTER 2023-07-22 11:15 | Outpatient (RCR) | payer MEDICARE, OTHER, SELFPAY | END 2023-07-22 12:04 | disposition home or self-care (01) | PROVIDERS: PCP Family Medicine; Visit Provider Family Medicine | DX: M54.6 Pain in thoracic spine (principal); Z51.89 Encounter for other specified aftercare; M79.603 Pain in arm, unspecified; R53.1 Weakness | CPT/HCPCS: 97110; 97140; 97161; 97530 ==

== ENCOUNTER 2023-09-15 20:34 | Emergency (ER) | payer MEDICARE, OTHER, SELFPAY ==
[2023-09-15 20:43] VITALS: BP 147/70; PULSE 72; RESP 20; TEMP 36.7; O2SAT 99; BMI 24.9
--- NOTE | 2023-09-15 20:54 | CRLHL7_ITS ---
For Patients: As a result of the Cures Act, medical imaging exams and procedure reports are released immediately into your electronic medical record. You may view this report before your referring provider. If you have questions, please contact your health care provider. Indication: Trauma. Technique: Pelvis, 2 views. Comparison: None. Findings/Impression: Bones: Alignment is normal. No displaced fractures or bone lesions. Joint spaces: Unremarkable. Soft tissues: Unremarkable. Dictated by Simon Esqueda MD @ 09/15/2023 9:30:22 PM (Electronically Signed)
--- NOTE | 2023-09-15 20:57 | ED.FALL ---
HPI - Fall General Chief Complaint: Fall/Minor Trauma Stated Complaint: fall Time Seen by Provider: 09/15/23 20:42 History of Present Illness HPI Narrative: This 83-year-old female comes in with pain in her right buttock from a fall that occurred a couple days ago. She states that she did not have much pain at the time that she fell but now has lots of pain when and weight-bearing on her right leg. She does not have any pain when sitting or at rest and nonweightbearing. She fell a couple days ago but did not hit her head or have loss of consciousness. She does not report any other injury. She is not on any anticoagulants. Her medical record shows that she takes a baby aspirin but she states that she typically does not do this. Related Data Home Medications Medication Instructions Recorded Confirmed alendronate 70 mg tablet 70 mg PO QWEEK 09/27/22 09/15/23 lisinopril 10 mg tablet 10 mg PO QDAY 09/27/22 09/15/23 simvastatin 40 mg tablet 40 mg PO QDAY 09/27/22 09/15/23 zolpidem 5 mg tablet 5 mg PO QHS PRN sleep 09/27/22 09/15/23 aspirin 81 mg capsule 81 mg PO DAILY 09/28/22 09/15/23 bupropion HCl 300 mg 24 hr tablet, 300 mg PO DAILY 09/28/22 09/15/23 extended release calcium carbonate 200 mg calcium 200 mg PO DAILY 09/28/22 09/15/23 (500 mg) chewable tablet (Antacid (calcium carbonate)) cyanocobalamin (vitamin B-12) 1,000 mcg PO DAILY 09/28/22 09/15/23 1,000 mcg capsule hydrochlorothiazide 25 mg tablet 25 mg PO DAILY 09/28/22 09/15/23 zinc acetate 50 mg (zinc) capsule 50 mg PO DAILY 09/28/22 09/15/23 omeprazole 20 mg capsule,delayed 20 mg PO DAILY 09/15/23 09/15/23 release Previous Rx's Medication Instructions Recorded hydrocodone 5 mg-acetaminophen 325 1 tab PO Q4-6H PRN pain #15 tabs 09/15/23 mg tablet Allergies Allergy/AdvReac Type Severity Reaction Status Date / Time No Known Drug Allergies Allergy Verified 09/15/23 20:48 Review of Systems Status of ROS: Reports: 10 or more systems reviewed and unremarkable except as noted in History and below Narrative: Constitutional: No fevers, no weight gain or loss. Eyes: No discharge. No vision changes. HENT: No congestion, no sore throat, no ear pain. Cardiovascular: No chest pain, no palpitations. Respiratory: No shortness of breath, no wheezes, no cough. Gastrointestinal: No abdominal pain, no vomiting, no diarrhea. Genitourinary: No dysuria, no hematuria. Musculoskeletal: Pain in the right buttock with weight-bearing. Skin: No rashes, no pruritis. Neurological: No dizziness, weakness, sensory change, speech change. Endo/Heme/Allergies: No bruising or bleeding. No polydipsia. Pysch: no suicidality, no anxiety, no insomnia. All other systems reviewed and are negative. [facility] Medical History (Updated 09/15/23 @ 21:51 by Davin Draper MD) Other nonspecific abnormal cardiovascular system function study ?R94.39 - Abnormal result of other cardiovascular function study (ICD-10) Colon polyp ?K63.5 - Polyp of colon (ICD-10) RAFAELA (obstructive sleep apnea) ?G47.33 - Obstructive sleep apnea (adult) (pediatric) (ICD-10) CAD (coronary artery disease) ?I25.10 - Atherosclerotic heart disease of [place] coronary artery without angina pectoris (ICD-10) PLMD (periodic limb movement disorder) ?G47.61 - Periodic limb movement disorder (ICD-10) Pyoderma gangrenosa ?L88 - Pyoderma gangrenosum (ICD-10) Compression fracture of twelfth thoracic vertebra ?S22.080A - Wedge compression fracture of T11-T12 vertebra, initial encounter for closed fracture (ICD-10) Osteopenia ?M85.80 - Other specified disorders of bone density and structure, unspecified site (ICD-10) Hypertension ?I10 - Essential (primary) hypertension (ICD-10) IBS (irritable bowel syndrome) ?K58.9 - Irritable bowel syndrome without diarrhea (ICD-10) Esophageal reflux ?K21.9 - Gastro-esophageal reflux disease without esophagitis (ICD-10) Anxiety ?F41.9 - Anxiety disorder, unspecified (ICD-10) Surgical History Postsurgical percutaneous transluminal coronary angioplasty (PTCA) status ?Z98.61 - Coronary angioplasty status (ICD-10) History of tonsillectomy and adenoidectomy ?Z90.89 - Acquired absence of other organs (ICD-10) History of esophagogastroduodenoscopy (EGD) ?Z98.890 - Other specified postprocedural states (ICD-10) History of colonoscopy ?Z98.890 - Other specified postprocedural states (ICD-10) History of laparoscopic cholecystectomy ?Z90.49 - Acquired absence of other specified parts of digestive tract (ICD-10) History of lumpectomy of left breast ?Z98.890 - Other specified postprocedural states (ICD-10) Social History Smoking Status: Former smoker How often do you have a drink containing alcohol: never AUDIT-C Alcohol total score: 0 Non-prescribed substance use: denies use service: No Exam Narrative: Exam Narrative: Constitutional: Well-developed, well-nourished, no acute distress. HEENT: Normocephalic, atraumatic. Neck: Normal range of motion. Nontender. Supple. Heart: Regular. No murmurs. Normal rate. Intact distal pulses. Lungs: Clear to auscultation. No chest discomfort. No wheezes, rhonchi, or rales. Abdomen: Normal bowel sounds. Nontender. No rebound tenderness. Genitalia: Deferred. Back: No midline tenderness. Normal range of motion. Extremities: Diffuse tenderness in the right buttock. No pain when log-rolling her right leg. No pain when stressing her pelvis. Skin: Intact. No rash. Warm. No erythema or pallor. Neurologic: No altered sensation. No weakness. Alert and oriented. Psychiatric: No suicidality. No anxiety or depression. No insomnia. Nursing notes and vitals signs are reviewed. Const: Vital Signs, click to edit/add: Vital Signs - 24 hr 09/15/23 20:43 Temperature 98.0 F Pulse Rate [Right Pulse Oximeter] 72 Respiratory Rate 20 Blood Pressure [Ri ght Upper Arm] 147/70 H Pulse Oximetry 99 Oxygen Delivery Me thod Room Air Course Vital Signs Vital signs: Initial Vital Signs Temperature 98.0 F 09/15/23 20:43 Temperature Source Temporal Artery Scan 09/15/23 20:43 Pulse Rate 72 09/15/23 20:43 Respiratory Rate 20 09/15/23 20:43 Blood Pressure 147/70 H 09/15/23 20:43 Blood Pressure Mean 95 09/15/23 20:43 Blood Pressure Position Supine 09/15/23 20:43 Pulse Oximetry 99 09/15/23 20:43 Oxygen Delivery Method Room Air 09/15/23 20:43 Vital Signs Temperature 98.0 F 09/15/23 20:43 Pulse Rate 72 09/15/23 20:43 Respiratory Rate 20 09/15/23 20:43 Blood Pressure 147/70 H 09/15/23 20:43 Pulse Oximetry 99 09/15/23 20:43 Oxygen Delivery Method Room Air 09/15/23 20:43 Temperature 98.0 F 09/15/23 20:43 Pulse Rate 72 09/15/23 20:43 Respiratory Rate 20 09/15/23 20:43 Blood Pressure 147/70 H 09/15/23 20:43 Pulse Oximetry 99 09/15/23 20:43 Oxygen Delivery Method Room Air 09/15/23 20:43 MDM - Fall MDM Narrative Medical decision making narrative: This patient fell a few days ago and has worsening pain in her right buttock. X-ray imaging of her pelvis shows no acute findings. The patient has no pain when sitting or lying but has distinct pain when bearing weight on her right leg. She received an intramuscular injection of morphine 4 mg and a prescription for [place]. She is encouraged to maintain activity and increase activity as tolerated. She has a walker that she can use for assistance. Imaging Data XR Pelvis: Radiologist's impression: Bones: Alignment is normal. No displaced fractures or bone lesions. Joint spaces: Unremarkable. Soft tissues: Unremarkable. Discharge Plan Discharge Clinical Impression: Contusion Patient Disposition: Home w/ Parent or Adult Condition: Stable Additional Instructions: Take medication as needed and directed. Increase activity as tolerated. Follow up with MD return if worsening. Prescriptions: New hydrocodone-acetaminophen 5-325 mg tablet 1 tab PO Q4-6H PRN (Reason: pain) Qty: 15 0RF No Action lisinopril 10 mg tablet 10 mg PO QDAY zolpidem 5 mg tablet 5 mg PO QHS PRN (Reason: sleep) simvastatin 40 mg tablet 40 mg PO QDAY alendronate 70 mg tablet 70 mg PO QWEEK aspirin 81 mg capsule 81 mg PO DAILY bupropion HCl 300 mg tablet extended release 24 hr 300 mg PO DAILY calcium carbonate [Antacid (calcium carbonate)] 200 mg calcium (500 mg) tablet,chewable 200 mg PO DAILY cyanocobalamin (vitamin B-12) 1,000 mcg capsule 1,000 mcg PO DAILY hydrochlorothiazide 25 mg tablet 25 mg PO DAILY zinc acetate 50 mg (zinc) capsule 50 mg PO DAILY omeprazole 20 mg capsule,delayed release(DR/EC) 20 mg PO DAILY Follow Up/Referrals: Nisha Ladd MD [Primary Care Provider] - Stand Alone Forms: [facility] Info Instructions
[2023-09-15] MEDS: MORPHINE 4 MG/ML INJ IM (21:56)
[2023-09-15 22:00] VITALS: BP 137/69; PULSE 75; RESP 20; TEMP 36.8; O2SAT 99
[2023-09-15 22:02] VITALS: BP 137/69; PULSE 75; RESP 20; TEMP 36.8
== END 2023-09-15 22:02 | disposition home or self-care (01) ==
PROVIDERS: Emergency Provider Emergency Medicine Emergency Medical Services; PCP Family Medicine
DX: S30.0XXA Contusion of lower back and pelvis, initial encounter (principal); W19.XXXA Unspecified fall, initial encounter
CPT/HCPCS: 72170; 96372; 99283; 99284; J2270

== ENCOUNTER 2023-09-17 10:34 | Outpatient (CLI) | payer MEDICARE, OTHER, SELFPAY | END 2023-09-17 10:35 | disposition home or self-care (01) | LOC: AMB 09-18 15:39 | PROVIDERS: PCP Family Medicine; Visit Provider Emergency Medicine Emergency Medical Services | DX: M25.551 Pain in right hip (principal) | CPT/HCPCS: A0425; A0427 ==

== ENCOUNTER 2023-09-17 11:02 | Observation (INO) | payer MEDICARE, OTHER, SELFPAY ==
[2023-09-17 11:05] VITALS: BP 134/58; PULSE 75; RESP 18; TEMP 36; O2SAT 97; BMI 23.7
--- NOTE | 2023-09-17 11:14 | ED.GENADULT ---
HPI - General Adult General Time Seen by Provider: 11:15 Date Seen: 09/17/23 Chief complaint: Hip Injury/Pain Time Seen by Provider: 09/17/23 11:14 Source: patient, EMS and RN notes reviewed Mode of arrival: EMS Limitations: no limitations History of Present Illness HPI narrative: This 83-year-old female was brought in from home by EMS, her sister actually called EMS to bring her in. Patient had a fall backwards into the tub few days ago. She was actually in and had plain x-rays on September 15 which did not show any fracture. She continues to have significant pain, cannot ambulate without severe pain in her right buttock area/hip area. She also does feel some low back pain. No noted neurologic change in her extremities. Her sister notes that there are significant issues at home, patient's has his own medical/ physical limitations. They are hoping that she will be admitted. She did have some [place] at home which she has been using to help with the pain. Did not take any this morning but as long as she is lying still, does not feel she needs any pain meds at this time. Have reviewed with patient and her sister that we will do advanced imaging to ensure that there is no underlying occult fracture. Did review that sometimes plain imaging can miss some fractures. The fact that she has ongoing pain issues, we need to do advanced imaging. She has no other complaints at this time, nothing else was injured in the fall. Related Data Home Medications Medication Instructions Recorded Confirmed alendronate 70 mg tablet 70 mg PO QWEEK 09/27/22 09/15/23 lisinopril 10 mg tablet 10 mg PO QDAY 09/27/22 09/15/23 simvastatin 40 mg tablet 40 mg PO QDAY 09/27/22 09/15/23 zolpidem 5 mg tablet 5 mg PO QHS PRN sleep 09/27/22 09/15/23 aspirin 81 mg capsule 81 mg PO DAILY 09/28/22 09/15/23 bupropion HCl 300 mg 24 hr tablet, 300 mg PO DAILY 09/28/22 09/15/23 extended release calcium carbonate 200 mg calcium 200 mg PO DAILY 09/28/22 09/15/23 (500 mg) chewable tablet (Antacid (calcium carbonate)) cyanocobalamin (vitamin B-12) 1,000 mcg PO DAILY 09/28/22 09/15/23 1,000 mcg capsule hydrochlorothiazide 25 mg tablet 25 mg PO DAILY 09/28/22 09/15/23 zinc acetate 50 mg (zinc) capsule 50 mg PO DAILY 09/28/22 09/15/23 omeprazole 20 mg capsule,delayed 20 mg PO DAILY 09/15/23 09/15/23 release Previous Rx's Medication Instructions Recorded hydrocodone 5 mg-acetaminophen 325 1 tab PO Q4-6H PRN pain #15 tabs 09/15/23 mg tablet Allergies Allergy/AdvReac Type Severity Reaction Status Date / Time No Known Drug Allergies Allergy Verified 09/15/23 20:48 Review of Systems Status of ROS: Reports: 6 or more systems reviewed and unremarkable except as noted in History and below [facility] Medical History (Updated 09/17/23 @ 12:58 by Bev Patino MD) Other nonspecific abnormal cardiovascular system function study ?R94.39 - Abnormal result of other cardiovascular function study (ICD-10) Colon polyp ?K63.5 - Polyp of colon (ICD-10) RAFAELA (obstructive sleep apnea) ?G47.33 - Obstructive sleep apnea (adult) (pediatric) (ICD-10) CAD (coronary artery disease) ?I25.10 - Atherosclerotic heart disease of [place] coronary artery without angina pectoris (ICD-10) PLMD (periodic limb movement disorder) ?G47.61 - Periodic limb movement disorder (ICD-10) Pyoderma gangrenosa ?L88 - Pyoderma gangrenosum (ICD-10) Compression fracture of twelfth thoracic vertebra ?S22.080A - Wedge compression fracture of T11-T12 vertebra, initial encounter for closed fracture (ICD-10) Osteopenia ?M85.80 - Other specified disorders of bone density and structure, unspecified site (ICD-10) Hypertension ?I10 - Essential (primary) hypertension (ICD-10) IBS (irritable bowel syndrome) ?K58.9 - Irritable bowel syndrome without diarrhea (ICD-10) Esophageal reflux ?K21.9 - Gastro-esophageal reflux disease without esophagitis (ICD-10) Anxiety ?F41.9 - Anxiety disorder, unspecified (ICD-10) Surgical History Postsurgical percutaneous transluminal coronary angioplasty (PTCA) status ?Z98.61 - Coronary angioplasty status (ICD-10) History of tonsillectomy and adenoidectomy ?Z90.89 - Acquired absence of other organs (ICD-10) History of esophagogastroduodenoscopy (EGD) ?Z98.890 - Other specified postprocedural states (ICD-10) History of colonoscopy ?Z98.890 - Other specified postprocedural states (ICD-10) History of laparoscopic cholecystectomy ?Z90.49 - Acquired absence of other specified parts of digestive tract (ICD-10) History of lumpectomy of left breast ?Z98.890 - Other specified postprocedural states (ICD-10) Social History Smoking Status: Former smoker How often do you have a drink containing alcohol: never AUDIT-C Alcohol total score: 0 Non-prescribed substance use: denies use service: No Exam Const: Vital Signs, click to edit/add: Vital Signs - 24 hr 09/17/23 11:05 Temperature 96.8 F L Pulse Rate [Pulse Oximeter] 75 Respiratory Rate 18 Blood Pressure [Ri ght Upper Arm] 134/58 L Pulse Oximetry 97 Oxygen Delivery Me thod Room Air This 83-year-old female is lying in the bed in exam room 3, she is alert, interactive, no apparent distress and is very pleasant. Sclera clear, conjugate gaze, symmetrical facial function, face is atraumatic. Lungs are clear, good air entry, no wheezing crackles. CV regular rate and rhythm, no murmur, normal S1 and S2. Abdomen is soft, nontender, nondistended, no organomegaly. She is tender when I palpate posteriorly over the right buttock and hip area. When I go to flex her right hip she complains of pain when I mobilize the right hip area. There is no visible ecchymosis. She also has some midline tenderness over the lower lumbar spine on palpation. She has normal sensation of her lower extremities, no lower extremity edema noted. , normal warmth and pulses noted. Documenting provider has reviewed patient's vital signs: yes Course Course ED Course: Patient will have imaging of her pelvis/right hip and lumbar spine to rule out occult fracture with ongoing significant pain a negative plain films earlier. She declines any need for pain medicine at this time. Reevaluation(s) Time of Reevaluation #1: 12:45 Reevaluation #1: Have reviewed with patient and relatives that are present with her that there are no fractures seen on the imaging we have done. Alejandra has just does not understand why she still having so much pain. I did review that there can be musculoskeletal changes that are not bony, i.e. muscle trauma. She resides alone with her in a home, he is unable to care for her. Did discuss the possibility of having her come into the hospital, it would be observation, would not cover her for rehab stay. They would like to discuss this further, I will talk to our hospitalist. Time of Reevaluation #2: 12:55 Reevaluation #2: Have reviewed my conversation with Dr. Hawkins the hospitalist, they really do not feel that there is any way that they can get her back home at this time. Thus, will let Dr. Hawkins know that patient will come in under observation. Patient declines pain medicine, states as long as she is quiet and resting, is having no pain. Consultations Consultation #1: Spoke with Dr. Hawkins, he will do the social admission if the absolutely cannot find any other circumstances are wait to care for this patient at home. He would be hopeful that they might be able to manage at home as they have been with extra care from family. I will go back and talk to them, review this with them further. Time: 12:51 Vital Signs Vital signs: Initial Vital Signs Temperature 96.8 F L 09/17/23 11:05 Temperature Source Temporal Artery Scan 09/17/23 11:05 Pulse Rate 75 09/17/23 11:05 Respiratory Rate 18 09/17/23 11:05 Blood Pressure 134/58 L 09/17/23 11:05 Blood Pressure Mean 83 09/17/23 11:05 Blood Pressure Position Supine 09/17/23 11:05 Pulse Oximetry 97 09/17/23 11:05 Oxygen Delivery Method Room Air 09/17/23 11:05 Vital Signs Temperature 96.8 F L 09/17/23 11:05 Pulse Rate 75 09/17/23 11:05 Respiratory Rate 18 09/17/23 11:05 Blood Pressure 134/58 L 09/17/23 11:05 Pulse Oximetry 97 09/17/23 11:05 Oxygen Delivery Method Room Air 09/17/23 11:05 Temperature 96.8 F L 09/17/23 11:05 Pulse Rate 75 09/17/23 11:05 Respiratory Rate 18 09/17/23 11:05 Blood Pressure 134/58 L 09/17/23 11:05 Pulse Oximetry 97 09/17/23 11:05 Oxygen Delivery Method Room Air 09/17/23 11:05 Medical Decision Making Imaging Data CT right hip/pelvis: Attestation: I have reviewed the pertinent imaging results. Radiologist's impression: Patient: LISA BREWER Facility:?[facility] Patient ID:?[id number] Site Patient ID:?[id number]. Site :?[id number] Study:?CT Hip Right W/O-09/17/2023 11:48:47 AM Ordering Physician:?Carey Pablo Final Report: Indication: Fall, ongoing right hip and buttock pain Technique: CT right hip without contrast. Multiplanar reformats are included Comparison: Radiographs 09/15/2023 Findings: No acute or healing fracture. Normal sacroiliac and hip joint alignment. The mild tendinous structures appear grossly intact without high-grade or full-thickness tearing. Limited exam of the pelvic viscera appears normal. Impression: No pelvic or right hip fracture seen. Please note that all CT scans at this facility use dose modulation, iterative reconstruction, and/or weight-based dosing when appropriate to reduce radiation dose to as low as reasonably achievable. Dictated by Tawana Kitchen MD @ 09/17/2023 12:25:38 PM (Electronic Signature) CT lumbar spine: Attestation: I have reviewed the pertinent imaging results. Radiologist's impression: Patient: LISA BREWER Facility:?[facility] Patient ID:?[id number] Site Patient ID:?[id number]. Site :?[id number] Study:?CT Spine Lumbar -09/17/2023 11:50:17 AM Ordering Physician:?Carey Pablo Final Report: INDICATION: Fell, lower back pain COMPARISON: CT abdomen pelvis 10/1922, prior lumbar spine CT 06/08/2016, pelvis radiograph 09/15/2023 TECHNIQUE: CT of the lumbar spine without contrast. Multiplanar axial, coronal, and sagittal reformats were reconstructed. FINDINGS: No acute fracture or dislocation. T12 superior endplate compression fracture with about 70 percent loss of height is not significantly changed compared to the CT obtained in October of this year. 2 mm retrolisthesis of L2 on L3. Multilevel disc bulge. Advanced L2-3 disc degenerative change with milder narrowing elsewhere. No substantial facet arthropathy. Mild bilateral L2-3 neural foraminal narrowing. No central canal stenosis. No focal bony lesions. Atherosclerotic vascular calcifications. IMPRESSION: No acute or traumatic findings in the lumbar spine. Please note that all CT scans at this facility use dose modulation, iterative reconstruction, and/or weight-based dosing when appropriate to reduce radiation dose to as low as reasonably achievable. Dictated by Tawana Kitchen MD @ 09/17/2023 12:29:30 PM (Electronic Signature) Discharge Plan Discharge Clinical Impression: Acute pain of right hip, Pain in right buttock, Fall Patient Disposition: Admitted As Observation Prescriptions: No Action lisinopril 10 mg tablet 10 mg PO QDAY zolpidem 5 mg tablet 5 mg PO QHS PRN (Reason: sleep) simvastatin 40 mg tablet 40 mg PO QDAY alendronate 70 mg tablet 70 mg PO QWEEK aspirin 81 mg capsule 81 mg PO DAILY bupropion HCl 300 mg tablet extended release 24 hr 300 mg PO DAILY calcium carbonate [Antacid (calcium carbonate)] 200 mg calcium (500 mg) tablet,chewable 200 mg PO DAILY cyanocobalamin (vitamin B-12) 1,000 mcg capsule 1,000 mcg PO DAILY hydrochlorothiazide 25 mg tablet 25 mg PO DAILY zinc acetate 50 mg (zinc) capsule 50 mg PO DAILY omeprazole 20 mg capsule,delayed release(DR/EC) 20 mg PO DAILY hydrocodone-acetaminophen 5-325 mg tablet 1 tab PO Q4-6H PRN (Reason: pain) Qty: 15 0RF Follow Up/Referrals: Nisha Ladd MD [Primary Care Provider] -
--- NOTE | 2023-09-17 11:22 | CRLHL7_ITS ---
For Patients: As a result of the Century Cures Act, medical imaging exams and procedure reports are released immediately into your electronic medical record. You may view this report before your referring provider. If you have questions, please contact your health care provider. Indication: Fall, ongoing right hip and buttock pain Technique: CT right hip without contrast. Multiplanar reformats are included Comparison: Radiographs 09/15/2023 Findings: No acute or healing fracture. Normal sacroiliac and hip joint alignment. The mild tendinous structures appear grossly intact without high-grade or full-thickness tearing. Limited exam of the pelvic viscera appears normal. Impression: No pelvic or right hip fracture seen. Please note that all CT scans at this facility use dose modulation, iterative reconstruction, and/or weight-based dosing when appropriate to reduce radiation dose to as low as reasonably achievable. Dictated by Tawana Kitchen MD @ 09/17/2023 12:25:38 PM (Electronically Signed)
--- NOTE | 2023-09-17 11:22 | CRLHL7_ITS ---
For Patients: As a result of the Century Cures Act, medical imaging exams and procedure reports are released immediately into your electronic medical record. You may view this report before your referring provider. If you have questions, please contact your health care provider. INDICATION: Fell, lower back pain COMPARISON: CT abdomen pelvis 10/1922, prior lumbar spine CT 06/08/2016, pelvis radiograph 09/15/2023 TECHNIQUE: CT of the lumbar spine without contrast. Multiplanar axial, coronal, and sagittal reformats were reconstructed. FINDINGS: No acute fracture or dislocation. T12 superior endplate compression fracture with about 70 percent loss of height is not significantly changed compared to the CT obtained in October of this year. 2 mm retrolisthesis of L2 on L3. Multilevel disc bulge. Advanced L2-3 disc degenerative change with milder narrowing elsewhere. No substantial facet arthropathy. Mild bilateral L2-3 neural foraminal narrowing. No central canal stenosis. No focal bony lesions. Atherosclerotic vascular calcifications. IMPRESSION: No acute or traumatic findings in the lumbar spine. Please note that all CT scans at this facility use dose modulation, iterative reconstruction, and/or weight-based dosing when appropriate to reduce radiation dose to as low as reasonably achievable. Dictated by Tawana Kitchen MD @ 09/17/2023 12:29:30 PM (Electronically Signed)
[2023-09-17 13:07] VITALS: BP 131/67; PULSE 75; RESP 20; O2SAT 96
--- NOTE | 2023-09-17 13:12 | ED.NURSE ---
Report to MELISSA Dawson.
[2023-09-17 14:20] VITALS: BP 147/56; PULSE 71; RESP 18; TEMP 36.6; O2SAT 98; BMI 25.2
--- NOTE | 2023-09-17 16:16 | P.IMHP_ITS ---
Hospitalist- H&P: HPI History of Present Illness Time Seen by Provider: 16:16 Date Seen: 09/17/23 Chief complaint: ER arrived by ambulance. Narrative: Ene Delgado is a 83 year old female fell about a week ago. Was okay for a day or two and then the muscles on the low right back have gotten progessively more sore and it is getting more difficult to walk. She complains of not being able to even pick up worker her feet to move them forward today. Her has been trying to help her, but he has gout. Has norco at home. She took four yesterday, but thought maybe that was impairing her ambulation, so didn't take any more until this morning. She took only one this morning. She feels okay laying still, but has pain in the right buttock, maybe a bit in the upper right posterior thigh, when she has to move or get up to walk. Denies any focal numbness, weakness or tingling. She mentions that her daughter has talked about coming to stay with her, but her daughter works parts department supervisor and Alejandra doesn't want her daughter to have to miss work. Alejandra complains of anxiety and says this has been a longstanding issue. She takes buspar, but was unaware that was for anxiety. Complains of chronic generalized weakness with difficulty opening jars or even milk, difficulty gripping walker. I went back a little later and her daughter, Zoya, was in the room. Zoya got Alejandra's sister, Josselyn, on the phone. Josselyn is a retired RN. Josselyn would like to be the personnel training officer. Alejandra and Zoya agreed with this. We spoke about the possible need for rehab vs going home with help from family. Josselyn, Zoya, and Alejandra's granddaughter are going to meet in the patient's room around noon tomorrow for a care discussion with Dr. Hawkins. Review of Systems Status of ROS: Reports: 10 or more systems reviewed and unremarkable except as noted in History and below GI: Reports: constipation (chronic) [facility] Medical History (Updated 09/17/23 @ 19:08 by Tram Juárez MD) Generalized anxiety disorder ?F41.1 - Generalized anxiety disorder (ICD-10) Pre-diabetes ?R73.03 - Prediabetes (ICD-10) Major depression, recurrent ?F33.9 - Major depressive disorder, recurrent, unspecified (ICD-10) Hypercholesterolemia ?E78.00 - Pure hypercholesterolemia, unspecified (ICD-10) Other nonspecific abnormal cardiovascular system function study ?R94.39 - Abnormal result of other cardiovascular function study (ICD-10) Colon polyp ?K63.5 - Polyp of colon (ICD-10) RAFAELA (obstructive sleep apnea) ?G47.33 - Obstructive sleep apnea (adult) (pediatric) (ICD-10) CAD (coronary artery disease) ?I25.10 - Atherosclerotic heart disease of [place] coronary artery without angina pectoris (ICD-10) PLMD (periodic limb movement disorder) ?G47.61 - Periodic limb movement disorder (ICD-10) Pyoderma gangrenosa ?L88 - Pyoderma gangrenosum (ICD-10) Compression fracture of twelfth thoracic vertebra ?S22.080A - Wedge compression fracture of T11-T12 vertebra, initial encounter for closed fracture (ICD-10) Osteopenia ?M85.80 - Other specified disorders of bone density and structure, unspecified site (ICD-10) Hypertension ?I10 - Essential (primary) hypertension (ICD-10) IBS (irritable bowel syndrome) ?K58.9 - Irritable bowel syndrome without diarrhea (ICD-10) Esophageal reflux ?K21.9 - Gastro-esophageal reflux disease without esophagitis (ICD-10) Surgical History (Updated 09/17/23 @ 16:09 by Tram Juárez MD) Postsurgical percutaneous transluminal coronary angioplasty (PTCA) status ?Z98.61 - Coronary angioplasty status (ICD-10) History of tonsillectomy and adenoidectomy ?Z90.89 - Acquired absence of other organs (ICD-10) History of esophagogastroduodenoscopy (EGD) ?Z98.890 - Other specified postprocedural states (ICD-10) History of colonoscopy ?Z98.890 - Other specified postprocedural states (ICD-10) History of laparoscopic cholecystectomy (~1998) ?Z90.49 - Acquired absence of other specified parts of digestive tract (ICD- 10) History of lumpectomy of left breast ?Z98.890 - Other specified postprocedural states (ICD-10) Family History (Updated 09/17/23 @ 16:10 by Tram Juárez MD) Mother Heart disease High cholesterol Maternal Grandfather Heart disease Social History (Updated 09/17/23 @ 18:41 by Tram Juárez MD) Narrative: Lives with (who has chronic leukemia, chronic lymphedema and recurrent gout, impaired ambulation). Smoked 20 pack years, quit in 1991, no history of smokeless tobacco. Denies alcohol use. Denies recreational drug use. What is your current living situation?: I presently have a place to live Problems where you live: no known problems Problems where you live details: NA In the past 12 months, utilities in danger of being shut off: no In past 12 months, lack of transportation kept you from medical appts, meetings, work, or getting things needed for daily living: no In the past 12 mos, have been you worried that your food would run out before you had money to buy more?: never true In the past 12 mos, the food you bought just didn't last and you didn't have money to buy more?: never true Highest level of school completed/degree received: high school graduate Smoking Status: Former smoker Do you use any of these nicotine containing products: None Second hand tobacco smoke exposure: No How often do you have a drink containing alcohol: never AUDIT-C Alcohol total score: 0 Non-prescribed substance use: denies use Caffeine: No How often does anyone, including family, friends and others, physically hurt you : never How often does anyone, including family, friends and others, insult or talk down to you: never How often does anyone, including family, friends and others, threaten you with harm: never How often does anyone, including family, friends and others, scream or curse at you: never service: No Meds Home Medications and Allergies Home Medications Medication Instructions Recorded Confirmed Type alendronate 70 mg tablet 70 mg PO QWEEK 09/27/22 09/17/23 History lisinopril 10 mg tablet 10 mg PO HS 09/27/22 09/17/23 History simvastatin 40 mg tablet 40 mg PO HS 09/27/22 09/17/23 History zolpidem 5 mg tablet 5 mg PO QHS PRN sleep 09/27/22 09/17/23 History bupropion HCl 300 mg 24 hr tablet, 300 mg PO DAILY 09/28/22 09/17/23 History extended release calcium carbonate 200 mg calcium 400 mg PO DAILY 09/28/22 09/17/23 History (500 mg) chewable tablet (Antacid (calcium carbonate)) cyanocobalamin (vitamin B-12) 1,000 mcg PO DAILY 09/28/22 09/17/23 History 1,000 mcg capsule hydrochlorothiazide 25 mg tablet 25 mg PO DAILY 09/28/22 09/17/23 History zinc acetate 50 mg (zinc) capsule 50 mg PO HS 09/28/22 09/17/23 History omeprazole 20 mg capsule,delayed 20 mg PO DAILY 09/15/23 09/17/23 History release buspirone 15 mg tablet 15 mg PO TID 09/17/23 09/17/23 History mirtazapine 30 mg tablet 30 mg PO HS 09/17/23 09/17/23 History nystatin 100,000 unit/gram topical 1 applic topical PRN 09/17/23 09/17/23 History powder (Nyamyc) prochlorperazine maleate 10 mg 10 mg PO TID PRN 09/17/23 09/17/23 History tablet Allergies Allergy/AdvReac Type Severity Reaction Status Date / Time No Known Drug Allergies Allergy Verified 09/15/23 20:48 Exam Narrative: Exam Narrative: General: No acute distress. Awake alert oriented x3. HEENT: Normocephalic atraumatic, pupils equally round and reactive to light and accommodation. Oropharynx clear. Mucous membranes are moist. No cervical lymphadenopathy, thyromegaly or carotid bruits. No JVD. Cardiovascular: Regular rate and rhythm. No murmurs, gallops, or rubs. Chest: No increased work of breathing. Clear to auscultation bilaterally. No crackles or wheezes. Abdomen: Bowel sounds present. Soft, nondistended, nontender. No hepatosplenomegaly or masses. Back: Mildly tender to palpation over the right buttock and hip. Extremities: No edema, no cyanosis or clubbing. Skin: No ecchymosis. No jaundice, no pallor, no rashes. Neuro: There are no focal deficits. Romberg is negative. No facial asymmetry. Tongue is midline. Strength is 4/5 in all 4 extremities. Light touch sensation is intact in face body and extremities. Const: Vital Signs, click to edit/add: Vital Signs - 24 hr 09/17/23 11:05 09/17/23 13:07 09/17/23 14:20 Temperature 96.8 F L 98 F Pulse Rate [Pulse Oximeter] 75 75 71 Respiratory Rate 18 20 18 Blood Pressure [Ri ght Arm] 147/56 H Blood Pressure [Ri ght Upper Arm] 134/58 L 131/67 Pulse Oximetry 97 96 98 Oxygen Delivery Me thod Room Air Room Air Room Air 09/17/23 14:20 Temperature Pulse Rate [Pulse Oximeter] Respiratory Rate 18 Blood Pressure [Ri ght Arm] Blood Pressure [Ri ght Upper Arm] Pulse Oximetry 98 Oxygen Delivery Me thod Room Air Hospitalist - H&P: Result Labs Labs: Ordering Physician: Bev Patino M.D. Date of Service: 09/17/23 Procedure(s): CT hip RT wo con Accession Number(s): [id number] cc: Bev Patino M.D.; Nisha Ladd M.D.~ For Patients: As a result of the Cures Act, medical imaging exams and procedure reports are released immediately into your electronic medical record. You may view this report before your referring provider. If you have questions, please contact your health care provider. Indication: Fall, ongoing right hip and buttock pain Technique: CT right hip without contrast. Multiplanar reformats are included Comparison: Radiographs 09/15/2023 Findings: No acute or healing fracture. Normal sacroiliac and hip joint alignment. The mild tendinous structures appear grossly intact without high-grade or full-thickness tearing. Limited exam of the pelvic viscera appears normal. Impression: No pelvic or right hip fracture seen. Please note that all CT scans at this facility use dose modulation, iterative reconstruction, and/or weight-based dosing when appropriate to reduce radiation dose to as low as reasonably achievable. Dictated by Tawnaa Kitchen MD @ 09/17/2023 12:25:38 PM (Electronically Signed) Ordering Physician: Bev Patino M.D. Date of Service: 09/17/23 Procedure(s): CT lumbar spine wo con Accession Number(s): [id number] cc: Bev Patino M.D.; Nisha Ladd M.D.~ For Patients: As a result of the Century Cures Act, medical imaging exams and procedure reports are released immediately into your electronic medical record. You may view this report before your referring provider. If you have questions, please contact your health care provider. INDICATION: Fell, lower back pain COMPARISON: CT abdomen pelvis 10/1922, prior lumbar spine CT 06/08/2016, pelvis radiograph 09/15/2023 TECHNIQUE: CT of the lumbar spine without contrast. Multiplanar axial, coronal, and sagittal reformats were reconstructed. FINDINGS: No acute fracture or dislocation. T12 superior endplate compression fracture with about 70 percent loss of height is not significantly changed compared to the CT obtained in October of this year. 2 mm retrolisthesis of L2 on L3. Multilevel disc bulge. Advanced L2-3 disc degenerative change with milder narrowing elsewhere. No substantial facet arthropathy. Mild bilateral L2-3 neural foraminal narrowing. No central canal stenosis. No focal bony lesions. Atherosclerotic vascular calcifications. IMPRESSION: No acute or traumatic findings in the lumbar spine. Please note that all CT scans at this facility use dose modulation, iterative reconstruction, and/or weight-based dosing when appropriate to reduce radiation dose to as low as reasonably achievable. Dictated by Tawana Kitchen MD @ 09/17/2023 12:29:30 PM (Electronically Signed) Assessment and Plan Assessment and plan (1) Fall: Problem comment: - This happened over a week ago, according to the patient. She also reports c hronic generalized weakness. I have ordered PT and OT to evaluate. I suspect she will need a rehab stay given that she reports chronic generalized weakness enough to impair use of a walker. I will also consult SS. Status: Acute (2) Pain in right buttock: Problem comment: No neurologic findings. I do not think MRI would change plan of care at this time. I have ordered prn low dose oxycodone and a stool softener. Perhaps she will be able to ambulate better if we can achieve better pain control, however there is a chance it will make her sleepy or exacerbate chronic weakness. Status: Acute (3) Generalized anxiety disorder: Problem comment: - Continue usual doses of buspar. Status: Chronic (4) RAFAELA (obstructive sleep apnea): Problem comment: 07/2010 AHI-12 PLMD found as well Status: Chronic (5) Osteopenia: Problem comment: Fosamax 07/2016, continue x10 years. Status: Chronic
--- NOTE | 2023-09-17 16:57 | PC.NURSE ---
Patient arrived to the floor at 1400 via cart. Telephone report received from Gina. No meds given in the ER. Denies pain unless she's moving. From home with her .
[2023-09-17] MEDS: OXYCODONE 5 MG TABLET 2.5 MG PO ×2 (18:11→22:14)
--- NOTE | 2023-09-17 18:21 | PC.NURSE ---
Patient A&O and VSS since arrival to unit. Has not been out of bed yet. No urge to urinate. Denies having pain while lying in bed but rates pain at 7/10 with movement & activity. Reports inability to bear weight on her legs d/t pain. Gave x1 dose of 2.5mg PRN oxycodone at 1810 and made a plan with patient to get up to bedside commode at 1930 before bed. Significant bruising to left hip but patient reports pain in right hip. No open wounds or sores noted. No IV access. Encouraging fluids otherwise adequate PO intake and good appetite; denies any nausea. Family has been present and at bedside attentive to patient. Patient reports last BM was 09/16/23.
[2023-09-17 19:23] VITALS: BP 110/57; PULSE 69; RESP 18; TEMP 36.4; O2SAT 94
[2023-09-17] MEDS: MIRTAZAPINE 15 MG TABLET 30 MG PO (22:02)
[2023-09-17] MEDS: BUSPIRONE 10 MG TABLET 30 MG PO (22:02)
[2023-09-17] MEDS: ACETAMINOPHEN 325 MG TABLET 975 MG PO (22:02)
[2023-09-17] MEDS: SENNOSIDES/DOCUSATE TABLET 2 TAB PO (22:03)
[2023-09-17] MEDS: lisinopriL 10 MG TABLET PO (22:03)
[2023-09-17] MEDS: SIMVASTATIN 40 MG TABLET PO (22:07)
--- NOTE | 2023-09-17 22:41 | PC.NURSE ---
Shift [id number]- Patient states no pain at rest and is hesitant to move- needs encouragement. Patient is educated on pain management with goal of movement. She stands at bedside with walker, gait belt and assist of 1-2, pivot to [facility]. She takes small shuffling steps to return to position in bed. PRN pain medication administered- see eMAR and ice applied to right hip.
[2023-09-17 23:00] VITALS: BP 125/94; PULSE 63; RESP 18; TEMP 36.3; O2SAT 93
[2023-09-18 03:00] VITALS: BP 134/68; PULSE 59; RESP 20; TEMP 36.6; O2SAT 98
[2023-09-18] MEDS: OXYCODONE 5 MG TABLET 2.5 MG PO ×3 (03:28→12:54)
--- NOTE | 2023-09-18 06:58 | PC.NURSE ---
Shift note: Pt declines to move around the room, she refuses to drink any fluids in order to not to use the bathroom. Pain medications administered according to eMAR
[2023-09-18 07:00] VITALS: BP 140/101; PULSE 63; RESP 16; TEMP 36.4; O2SAT 94
[2023-09-18] MEDS: BUSPIRONE 10 MG TABLET 15 MG PO (08:14)
[2023-09-18] MEDS: CALCIUM CARBONATE 500 MG CHEW PO (08:16)
[2023-09-18] MEDS: buPROPion XL 150 MG TABLET 300 MG PO (08:16)
[2023-09-18] MEDS: CYANOCOBALAMIN (VITAMIN B-12) 500 MCG TABLET 1000 MCG PO (08:16)
[2023-09-18] MEDS: hydroCHLOROthiazide 25 MG TABLET PO (08:17)
[2023-09-18] MEDS: OMEPRAZOLE 20 MG CAPSULE DR PO (08:17)
[2023-09-18 09:03] LABS: Basophils Absolute Auto 0.02 K/uL (0.00-0.30); Basophils Percent Auto 0.4 % (0.0-3.0); Eosinophils Absolute Auto 0.12 K/uL (0.00-0.50); Eosinophils Percent Auto 2.4 % (0.0-7.0); Hematocrit 40.2 % (33.0-51.0); Hemoglobin* 13.1 gm/dL (12.0-16.0); Immature Granulocytes Abs Auto 0.02 K/uL (0.00-0.30); Immature Granulocytes Pct Auto 0.4 %; Lymphocytes Absolute Auto 1.93 K/uL (0.90-2.90); Lymphocytes Percent Auto 39.3 % (20-44); Mean Corpuscular HGB Conc 33 gm/dL (32-36); Mean Corpuscular Hemoglobin 31 pg (26-34); Mean Corpuscular Volume 94 fL (80-100); Monocytes Percent Auto 8.1 % (0.0-11.0); Neutrophils Absolute Auto 2.42 K/uL (1.7-7.0); Neutrophils Percent Auto 49.4 % (42.0-72.0); Platelet Count* 254 K/uL (140-440); RDW Coefficient of Variation % 12.6 % (11.5-15.5); Red Blood Count 4.27 m/uL (4.00-5.20); White Blood Count* 4.91 K/uL (4.50-11.00)
[2023-09-18 09:04] LABS: Slide Review Reflex No
[2023-09-18 09:13] LABS: Chloride* 106 mmol/L (96-114); Sodium* 141 mmol/L (135-149)
[2023-09-18 09:16] LABS: Creatinine* 1.2 mg/dL (0.5-1.5); Est. Creatinine Clearance* 31.75; Estimated Glomerular Filt Rate 45 ml/min
[2023-09-18 09:17] LABS: Anion Gap 11 mEq/L (7-15); Blood Urea Nitrogen* 29 mg/dL (7-30); Calcium* 9.6 mg/dL (8.4-10.6); Carbon Dioxide* 24 mmol/L (20-32); Glucose* 111 mg/dL (60-115)
[2023-09-18 11:00] VITALS: BP 120/56; PULSE 72; RESP 18; TEMP 36.6; O2SAT 96
[2023-09-18] MEDS: SENNOSIDES/DOCUSATE TABLET 2 TAB PO ×2 (11:08→20:57)
[2023-09-18] MEDS: NAPROXEN 250 MG TABLET PO ×2 (11:09→18:02)
[2023-09-18 14:34] VITALS: BP 106/53; PULSE 63; RESP 18; TEMP 36.9; O2SAT 94
--- NOTE | 2023-09-18 16:28 | P.IMPN_ITS ---
Progress Note: A&P Assessment and plan (1) Fall: Problem details: Injury from a fall over a week ago now with persistent pain in the right buttock and proximal posterior thigh. Significant mobility difficulties with this. PT assesses that she currently needs standby assist. Status: Acute (2) Pain in right buttock: Problem details: Known neuro deficits Status: Acute (3) Generalized anxiety disorder: Problem details: - Continue usual doses of buspar. Status: Chronic (4) RAFAELA (obstructive sleep apnea): Problem details: 07/2010 AHI-12 PLMD found as well Status: Chronic (5) Osteopenia: Problem details: Fosamax 07/2016, continue x10 years. Status: Chronic (6) Discharge planning issues: Problem details: Currently patient has need for assistance at home. has his own disabilities and has limited ability to provide which she needs. Other family members are present for discussion of options. PT and OT to continue to work with patient. [employer] Director to review discharge planning options Status: Acute Plan Continue in-hospital pending further evaluation of mobility and disability, pain control and discharge planning. Total time spent today is 60 minutes, 45 minutes in coordination of care and discussing with patient and family members disability and disposition Subjective Date Seen: 09/18/23 Interval history: 83-year-old female seen in followup of right buttock and thigh pain after a fall at home about a week prior to admission. Patient had an accidental fall into her tub at home. She has been attempting to manage at home but is finding mobility is quite poor and she is unsteady on her feet since the fall. She reports before falling down that she was walking independently. She would even walk without a walker or assistive device at times. She felt pretty stable on her feet and functionally independent by her perspective. Since she fell however it hurts quite a bit to bear weight on her right lower extremity with the pain in her right buttock area and going down about mcfp down the back of her thigh. She does not have pain, numbness or weakness in her knees or feet. No new bowel or bladder problems. She reports otherwise being well without any other symptoms of illness, fever, shortness of breath, cough, chest pain, abdominal pain. She reports she has been able to eat and drink. No bowel or bladder problems. Exam Narrative: Exam Narrative: She is alert in no distress. She is able to give fairly good details of her current circumstances. Head is without trauma. No facial asymmetry. Respirations are clear to auscultation. Cardiovascular: S1, S2, regular rate and rhythm. Abdomen is soft without tenderness. Inspection of her back shows no significant external signs of trauma. Palpation shows no significant tenderness except in the area of her right buttock extending into her proximal posterior thigh. There is no focal tenderness or mass. Lower extremity testing shows intact sensation. Hip flexion, knee flexion and knee extension, ankle dorsiflexion and plantar flexion bilaterally are 5/5 without significant discomfort Const: Vital Signs, click to edit/add: Vital Signs - 24 hr 09/17/23 19:23 09/17/23 23:00 09/17/23 23:00 Temperature 97.6 F 97.4 F L Pulse Rate [Pulse Oximeter] 69 63 63 Respiratory Rate 18 18 18 Blood Pressure [Le ft Arm] Blood Pressure [Ri ght Arm] 110/57 L 125/94 H Pulse Oximetry 94 93 Oxygen Delivery Me thod Room Air Room Air 09/18/23 03:00 09/18/23 07:00 09/18/23 07:00 Temperature 98 F 97.6 F Pulse Rate [Pulse Oximeter] 59 L 63 63 Respiratory Rate 20 16 16 Blood Pressure [Le ft Arm] Blood Pressure [Ri ght Arm] 134/68 140/101 H Pulse Oximetry 98 94 Oxygen Delivery Me thod Room Air Room Air 09/18/23 11:00 09/18/23 14:34 09/18/23 14:34 Temperature 98 F 98.5 F Pulse Rate [Pulse Oximeter] 72 63 63 Respiratory Rate 18 18 18 Blood Pressure [Le ft Arm] 120/56 L 106/53 L Blood Pressure [Ri ght Arm] Pulse Oximetry 96 94 Oxygen Delivery Me thod Room Air Room Air Documenting provider has reviewed patient's vital signs: yes Labs Labs: Laboratory Results - last 24 hr 09/18/23 09/18/23 08:54 15:07 WBC 4.91 RBC 4.27 Hgb 13.1 Hct 40.2 MCV 94 MCH 31 MCHC 33 RDW Coeff of [place] 12.6 Plt Count 254 Neut % (Auto) 49.4 Lymph % (Auto) 39.3 Pierce % (Auto) 8.1 Eos % (Auto) 2.4 Baso % (Auto) 0.4 Neut # (Auto) 2.42 Lymph # (Auto) 1.93 Pierce # (Auto) 0.40 Eos # (Auto) 0.12 Baso # (Auto) 0.02 Abs Immat Gran (auto) 0.02 Imm/Tot Granulo (auto) 0.4 Sodium 141 Potassium 4.0 Chloride 106 Carbon Dioxide 24 Anion Gap 11 BUN 29 Creatinine 1.2 Estimated Creat Clear 31.75 Estimated GFR 45 Glucose 111 Calcium 9.6 C-Reactive Protein 1.0 TSH 2.070 Lab Acknowledgement Test Added
--- NOTE | 2023-09-18 17:25 | PC.NURSE ---
Patient A&O, VSS and afebrile today. Ax1 with gait belt & walker to recliner. Attempted walking patient to BR and she did well, she just needs extra encouragement. Low PO intake today and low urine output; encouraged to push fluids. Naproxen scheduled BID and PRN oxycodone given x2 doses for pain management. Denies having pain while sitting still but reports it increases but not too bad with activity & ambulation. Denies any nausea or SOB. UA ordered but unable to collect sample d/t unable to void- pt reports she will try again before bed. Multiple family members visiting today & attentive to patient needs.
[2023-09-18 18:35] LABS: Appearance Urine Clear (Clear); Bilirubin Urine Negative (Negative); Blood Urine Negative (Negative); Color Urine Yellow (Yellow); Glucose Urine Negative (Negative); Ketones Urine Negative (Negative); Leukocyte Esterase Urine 2+ (Negative); Nitrite Urine Negative (Negative); Protein Urine Negative (Negative); Specific Gravity Urine 1.025 (1.000-1.030); Urobilinogen Urine 0.2 (0.2-1.0); pH Urine 5.5 (5.0-8.5)
[2023-09-18 18:45] LABS: Bacteria Urine Moderate; RBC Urine 0-2 (0-2); Squamous Epithelial Cell Urine Few (None-Few); WBC Clumps Urine Few
[2023-09-18 18:46] LABS: Hyaline Casts Urine Few (None-Few); Mucus Urine Few
[2023-09-18 19:00] VITALS: BP 121/72; PULSE 69; RESP 20; TEMP 36.6; O2SAT 96
[2023-09-18] MEDS: BUSPIRONE 10 MG TABLET 30 MG PO (20:56)
[2023-09-18] MEDS: ZOLPIDEM 5 MG TABLET PO (20:56)
[2023-09-18] MEDS: lisinopriL 10 MG TABLET PO (20:57)
[2023-09-18] MEDS: MIRTAZAPINE 15 MG TABLET 30 MG PO (20:57)
[2023-09-18] MEDS: ENOXAPARIN 30 MG/0.3ML INJ SUBCUT (20:57)
[2023-09-18] MEDS: SIMVASTATIN 40 MG TABLET PO (20:57)
[2023-09-18 23:00] VITALS: PULSE 65; PULSE 69; RESP 16; O2SAT 94
[2023-09-19 03:00] VITALS: BP 123/48; PULSE 76; RESP 16; TEMP 36.3; O2SAT 97
--- NOTE | 2023-09-19 06:23 | PC.NURSE ---
Shift note: Pt ambulates with assist of 1 and walker, walks to the bathroom. RN continue to encourage fluid intake, education on exercise provided. Pt rates pain as tolerable
[2023-09-19 08:30] VITALS: BP 155/70; PULSE 66; RESP 16; TEMP 36.2; O2SAT 95
--- NOTE | 2023-09-19 09:37 | PM.IMPN1 ---
Progress Note: A&P Assessment and plan (1) Fall: Problem details: Injury from a fall over a week ago now with persistent pain in the right buttock and proximal posterior thigh without radiographic evidence of traumatic findings. Significant mobility difficulties with this. PT assesses that she currently needs standby assist. Continue PT and OT director of physiotherapy services for discharge planning/placement needs. Patient and family believe she needs short-term rehab. Status: Acute (2) Pain in right buttock: Problem details: CT lumbar spine/CT hip without acute traumatic findings Known neuro deficits, chronic Pain management with scheduled Tylenol, low-dose scheduled naproxen, lidocaine patch, low-dose oxycodone p.r.n., ice/heat as needed Continue with PT/OT Status: Acute (3) Generalized anxiety disorder: Problem details: Continue usual doses of buspar, Remeron at bedtime, would recommend minimizing as needed bedtime Ambien to reduce fall risk Status: Chronic (4) Hypertension: Problem details: Hydrochlorothiazide dose decreased to reduce lightheadedness, fall risk. Pressures adequate, continue to monitor Status: Chronic (5) Asymptomatic bacteriuria: Problem details: UA collected. Patient asymptomatic. UC pending. Will defer antibiotics at this time pending UC results Status: Acute (6) RAFAELA (obstructive sleep apnea): Problem details: 07/2010 AHI-12 PLMD found as well Status: Chronic (7) Osteopenia: Problem details: Fosamax 07/2016, continue x10 years. Status: Chronic (8) Discharge planning issues: Problem details: Currently patient has need for assistance at home. has his own disabilities and has limited ability to provide which she needs. Other family members are present for discussion of options - patient and family in agreement for short-term rehab placement. PT and OT to continue to work with patient. Associate Creative Director to review discharge planning options Status: Acute Plan Continue PT, OT, pain management. Awaiting placement with assistance of social and human services assistant Time Spent With Patient Total time spent: Total time spent caring for the patient today was 45 minutes. This includes time spent for the visit reviewing the chart, time spent during the visit, time spent after the visit and documentation and planning in coordination of care. Subjective Date Seen: 09/19/23 Interval history: Patient is seen with her sister and granddaughter (a nurse) at bedside. Patient reports she did not sleep well her 1st night so took an Ambien last night but awoke to her room phone ringing multiple times and unable to reach the phone or her glasses. She is otherwise feeling better after sleeping well last night. Tells me she has very little pain at rest however continues to have right-sided pain with ambulation. Feels her strength is weaker than normal however slightly improving. Denies headache or dizziness. Denies chest pain or shortness of breath. Tolerating orals without nausea, vomiting. Urine was collected for UA. Patient denies any dysuria, flank or abdominal pain, frequency, urgency. Has remained afebrile. Exam Narrative: Exam Narrative: PHYSICAL EXAM General: Sitting up in bed, pleasant, conversant, NAD HEENT: Normocephalic, atraumatic, sclera white, EOMI, oral mucosa moist Cardiovascular: RRR, S1S2. No pitting edema Pulmonary: CTA bilaterally without rhonchi, rales, expiratory wheezes. No dyspnea Neurological: Alert, answering questions appropriately, cranial nerves intact, no focal findings Extremities: No gross joint deformity or swelling. AROMI. Neurovascularly intact Skin: Warm, dry. Const: Vital Signs, click to edit/add: Vital Signs - 24 hr 09/18/23 11:00 09/18/23 14:34 09/18/23 14:34 Temperature 98 F 98.5 F Pulse Rate [Pulse Oximeter] 72 63 63 Respiratory Rate 18 18 18 Blood Pressure [Le ft Arm] 120/56 L 106/53 L Pulse Oximetry 96 94 Oxygen Delivery Me thod Room Air Room Air 09/18/23 19:00 09/18/23 23:00 09/18/23 23:00 Temperature 98 F Pulse Rate [Pulse Oximeter] 69 69 65 Respiratory Rate 20 16 16 Blood Pressure [Le ft Arm] 121/72 Pulse Oximetry 96 94 Oxygen Delivery Me thod Room Air Room Air 09/19/23 03:00 Temperature 97.4 F L Pulse Rate [Pulse Oximeter] 76 Respiratory Rate 16 Blood Pressure [Le ft Arm] 123/48 L Pulse Oximetry 97 Oxygen Delivery Nh thod Room Air Labs Labs: Laboratory Results - last 24 hr 09/18/23 09/18/23 09/18/23 08:54 15:07 18:33 TSH 2.070 Urine Color Yellow Urine Appearance Clear Urine pH 5.5 Ur Specific [place] 1.025 Urine Protein Negative Urine Glucose (UA) Negative Urine Ketones Negative Urine Blood Negative Urine Nitrite Negative Urine Bilirubin Negative Urine Urobilinogen 0.2 Ur Leukocyte Esterase 2+ A Urine RBC 0-2 Urine WBC 5-10 A Urine WBC Clumps Few A Ur Squamous Epith Cells Few Urine Bacteria Moderate A Hyaline Casts Few Urine Mucus Few A Lab Acknowledgement Test Added
[2023-09-19] MEDS: NAPROXEN 250 MG TABLET PO ×2 (09:52→18:19)
[2023-09-19] MEDS: hydroCHLOROthiazide 25 MG TABLET 12.5 MG PO (09:52)
[2023-09-19] MEDS: SENNOSIDES/DOCUSATE TABLET 2 TAB PO ×2 (09:53→21:09)
[2023-09-19] MEDS: CYANOCOBALAMIN (VITAMIN B-12) 500 MCG TABLET 1000 MCG PO (09:53)
[2023-09-19] MEDS: CALCIUM CARBONATE 500 MG CHEW PO (09:53)
[2023-09-19] MEDS: OXYCODONE 5 MG TABLET 2.5 MG PO (09:54)
[2023-09-19] MEDS: OMEPRAZOLE 20 MG CAPSULE DR PO (09:55)
[2023-09-19] MEDS: buPROPion XL 150 MG TABLET 300 MG PO (09:55)
[2023-09-19] MEDS: BUSPIRONE 10 MG TABLET 15 MG PO (09:55)
[2023-09-19] MEDS: LIDOCAINE 5% PATCH 1 PATCH TRANSDERMA (10:41)
[2023-09-19] MEDS: ACETAMINOPHEN 325 MG TABLET 650 MG PO ×3 (10:41→23:24)
[2023-09-19 11:45] VITALS: BP 147/59; PULSE 63; RESP 16; TEMP 36.6; O2SAT 95
--- NOTE | 2023-09-19 12:05 | PC.SOCIAL ---
Addendum entered by ADELINE Jc 09/19/23 16:19: Discharge planning: Met with pt and sister, Josselyn, again this afternoon and explained to them that [facility] care team was reviewing the pt's paperwork and would let this worker know if they could accept her or not by Tuesday(tomorrow morning). [facility] have bed availability for a shared room or private room for private pay, but the care team has not given final approval yet. Social Work to follow-up as needed. Original Note: Discharge planning: Met with pt and two sisters to discuss discharge planning. Explained that PT recommended short term long term rehabilitation stay. Pt has Medicare Primary for insurance which will not cover a short term long term rehabilitation stay. Explained the option of private paying to the family. Pt and family agreed to private pay and asked for this worker to look into [facility] in [place]. Worker will reach out to [facility] about openings. Social Work to follow-up as needed.
[2023-09-19] MEDS: polyethylene glycoL 3350 17 GM PACK PO (12:10)
[2023-09-19 15:00] VITALS: BP 113/75; PULSE 68; RESP 16; TEMP 36.3; O2SAT 96
--- NOTE | 2023-09-19 17:28 | PC.SOCIAL ---
Discharge planning: [facility] admission coordinator called and is likely to have a rehab bed available tomorrow for pt and will confirm in the morning. Private room is estimated at $610.85/day and shared room is estimated at $547.85/day. [facility] required an up front payment of $10,000 for private pay admissions. Pt and family had been informed earlier today that this would be a private pay stay at a [facility] facility and had asked for placement as private pay. This afternoon, [id number] Jose Bonilla, arrived and requested to meet with social work instructor to discuss this. overhead line worker met at length with Jose and pt's sister. Explained again that pt is observation and that this does not meet criteria for Medicare coverage of the half-way. Answered all of the family questions regarding this. Discussed option of taking pt home with family support or moving her into a family member home while assistance is needed, as she is only requiring the assistance of one person. Family sates that neither of these options will work for the family and that pt needs placement in a half-way. [facility] is the family first choice. Jose shared that he is on the board at [facility] and they will accept her there tomorrow. Family requested to speak with . overhead line worker passed along this request. overhead line worker to follow up as needed.
[2023-09-19 18:44] VITALS: BP 118/60; PULSE 70; RESP 18; TEMP 36.2; O2SAT 97
[2023-09-19] MEDS: ENOXAPARIN 30 MG/0.3ML INJ SUBCUT (21:08)
[2023-09-19] MEDS: BUSPIRONE 10 MG TABLET 30 MG PO (21:08)
[2023-09-19] MEDS: MIRTAZAPINE 15 MG TABLET 30 MG PO (21:09)
[2023-09-19] MEDS: SIMVASTATIN 40 MG TABLET PO (21:09)
[2023-09-19] MEDS: lisinopriL 10 MG TABLET PO (21:09)
--- NOTE | 2023-09-19 23:23 | PC.NURSE ---
VSS, RA. Pain in right hip and back of a 7 w/ movement- relief w/ scheduled pain medications. Decreased appetite, refused dinner. Drinking well. Voided x2. Loose stool x1. Up with assist of 1, walker, & gait belt. PIV- SL'd. Will continue to monitor, follow POC, and keep pt and family updated. Sonia Dacosta RN
[2023-09-19 23:30] VITALS: BP 124/65; PULSE 67; RESP 16; TEMP 36.4; O2SAT 96
[2023-09-20 04:30] VITALS: BP 135/61; PULSE 64; RESP 16; TEMP 36.6; O2SAT 96
[2023-09-20] MEDS: ACETAMINOPHEN 325 MG TABLET 650 MG PO ×2 (04:33→09:24)
--- NOTE | 2023-09-20 05:20 | PC.NURSE ---
Pt alert and oriented x3. Afebrile. Pt reports 3/10 pain in right hip, pain managed with scheduled Tylenol. Pt is up A1 with walker and gait belt, tolerating regular diet, and slept intermittently throughout night. Night uneventful.
[2023-09-20 07:00] LABS: Chloride* 107 mmol/L (96-114); Potassium* 4.5 mmol/L (3.6-5.1); Sodium* 139 mmol/L (135-149)
[2023-09-20 07:03] LABS: Blood Urea Nitrogen* 39 mg/dL (7-30); Carbon Dioxide* 23 mmol/L (20-32); Creatinine* 1.8 mg/dL (0.5-1.5); Est. Creatinine Clearance* 21.17; Estimated Glomerular Filt Rate 28 ml/min
[2023-09-20 07:04] LABS: Anion Gap 9 mEq/L (7-15); Calcium* 9.5 mg/dL (8.4-10.6); Glucose* 106 mg/dL (60-115)
--- NOTE | 2023-09-20 08:24 | PM.IMPN1 ---
Progress Note: A&P Assessment and plan (1) BRANDON (acute kidney injury): Status: Acute (2) Fall: Problem details: Injury from a fall over a week ago now with persistent pain in the right buttock and proximal posterior thigh without radiographic evidence of traumatic findings. Significant mobility difficulties with this. PT assesses that she currently needs standby assist. Continue PT and OT technical services assistant for discharge planning/placement needs. Patient and family believe she needs short-term rehab. Status: Acute (3) Pain in right buttock: Problem details: CT lumbar spine/CT hip without acute traumatic findings Known neuro deficits, chronic Pain management with scheduled Tylenol, low-dose scheduled naproxen, lidocaine patch, low-dose oxycodone p.r.n., ice/heat as needed Continue with PT/OT Status: Acute (4) Generalized anxiety disorder: Problem details: Continue usual doses of buspar, Remeron at bedtime, would recommend minimizing as needed bedtime Ambien to reduce fall risk Status: Chronic (5) Hypertension: Problem details: Hydrochlorothiazide dose decreased to reduce lightheadedness, fall risk. Pressures adequate, continue to monitor Status: Chronic (6) Asymptomatic bacteriuria: Problem details: UA collected. Patient asymptomatic. UC pending. Will defer antibiotics at this time pending UC results Status: Acute (7) RAFAELA (obstructive sleep apnea): Problem details: 07/2010 AHI-12 PLMD found as well Status: Chronic (8) Osteopenia: Problem details: Fosamax 07/2016, continue x10 years. Status: Chronic (9) Discharge planning issues: Problem details: Currently patient has need for assistance at home. has his own disabilities and has limited ability to provide which she needs. Other family members are present for discussion of options - patient and family in agreement for short-term rehab placement. PT and OT to continue to work with patient. Powertrain Design Engineer to review discharge planning options Status: Acute Exam Const: Vital Signs, click to edit/add: Vital Signs - 24 hr 09/19/23 08:30 09/19/23 08:30 09/19/23 11:45 Temperature 97.2 F L 98 F Pulse Rate [Pulse Oximeter] 66 66 63 Respiratory Rate 16 16 16 Blood Pressure [Le ft Arm] 155/70 H 147/59 H Blood Pressure [Ri ght Arm] Pulse Oximetry 95 95 Oxygen Delivery Me thod Room Air Room Air 11/27/23 15:00 09/19/23 15:00 09/19/23 18:44 Temperature 97.3 F L 97.1 F L Pulse Rate [Pulse Oximeter] 68 68 70 Respiratory Rate 16 16 18 Blood Pressure [Le ft Arm] 113/75 118/60 Blood Pressure [Ri ght Arm] Pulse Oximetry 96 97 Oxygen Delivery Me thod Room Air Room Air 09/19/23 23:30 09/19/23 23:30 09/20/23 04:30 Temperature 97.5 F L 97.9 F Pulse Rate [Pulse Oximeter] 67 64 Respiratory Rate 16 16 16 Blood Pressure [Le ft Arm] Blood Pressure [Ri ght Arm] 124/65 135/61 Pulse Oximetry 96 96 Oxygen Delivery Al thod Room Air Room Air Labs Labs: Laboratory Results - last 24 hr 09/20/23 06:18 Sodium 139 Potassium 4.5 Chloride 107 Carbon Dioxide 23 Anion Gap 9 BUN 39 H Creatinine 1.8 H Estimated Creat Clear 21.17 Estimated GFR 28 Glucose 106 Calcium 9.5
[2023-09-20 08:34] VITALS: BP 132/89; PULSE 58; RESP 16; TEMP 36.2; O2SAT 96
[2023-09-20] MEDS: CYANOCOBALAMIN (VITAMIN B-12) 500 MCG TABLET 1000 MCG PO (09:23)
[2023-09-20] MEDS: OMEPRAZOLE 20 MG CAPSULE DR PO (09:24)
[2023-09-20] MEDS: CALCIUM CARBONATE 500 MG CHEW PO (09:25)
[2023-09-20] MEDS: BUSPIRONE 10 MG TABLET 15 MG PO (09:25)
[2023-09-20] MEDS: buPROPion XL 150 MG TABLET 300 MG PO (09:25)
[2023-09-20] MEDS: LIDOCAINE 5% PATCH 1 PATCH TRANSDERMA (09:26)
[2023-09-20] MEDS: hydroCHLOROthiazide 25 MG TABLET 12.5 MG PO (09:27)
--- NOTE | 2023-09-20 11:30 | PM.DS1 ---
DS: Providers Provider Date Seen: 09/20/23 Date of admission: 09/17/23 13:19 Primary care physician: Nisha Ladd MD Admitting Clinician: Edil Hawkins MD Consults: 09/17/23 14:39 Consult to Physical Therapy [CONS] Routine Comment: Reason(s) for PT Consult:: Inability to Mobilize Any Restrictions?:: No Restrictions 09/17/23 17:36 Consult to Physical Therapy [CONS] Routine Comment: Reason(s) for PT Consult:: Evaluate and Treat Any Restrictions?:: No Restrictions Consult to Chief Passenger Ship Steward/Stewardess [CONS] Routine Comment: Reason for Consult:: Possible SNF placement 09/17/23 17:38 Consult to Occupational Therapy [CONS] Routine Comment: Reason(s) for OT Consult:: Evaluate and Treat Any Restrictions?:: No Restrictions Attending Physician on discharge: AMAURY Khalil, LEILA [facility] Hospitalist Date of Discharge: 09/20/23 DS: Diagnosis Discharge Diagnosis (1) BRANDON (acute kidney injury): Status: Acute Problem details: Creatinine increased to 1.8 from 1.2 on day of discharge. Suspected in setting of brief use of naproxen. Naproxen discontinued, recommend avoiding NSAIDs. Lisinopril dose held on 09/20/2023, okay to resume at discharge. WILL NEED REPEAT CREATININE IN 3-5 DAYS. (2) Fall: Status: Acute Problem details: Injury from a fall over a week ago with persistent pain in the right buttock and proximal posterior thigh without radiographic evidence of traumatic findings. Improved mobility with PT and OT and pain management. Recommending SNF placement for ongoing short-term rehab. Patient and family members in agreement. Patient is discharged to [facility]. (3) Pain in right buttock: Status: Acute Problem details: CT lumbar spine/CT hip without acute traumatic findings. Known neuro deficits, chronic. Improved pain and mobility noted prior to discharge. Continue pain management with scheduled Tylenol, OTC lidocaine patch, low-dose oxycodone p.r.n., ice/heat as needed. Avoid NSAIDs secondary to BRANDON prior to discharge. Continue with PT/OT at [facility]. (4) Generalized anxiety disorder: Status: Chronic Problem details: Continue usual doses of buspar, Remeron at bedtime. PRN Ambien discontinued to reduce fall risk (used only 1 night during hospital stay). Follow-up with PCP for alternatives if necessary. (5) Hypertension: Status: Chronic Problem details: Continue home medications (6) Asymptomatic bacteriuria: Status: Acute Problem details: UA collected. Patient asymptomatic. UC pending on day of discharge. Antibiotics deferred pending UC results (7) RAFAELA (obstructive sleep apnea): Status: Chronic Problem details: 07/2010 AHI-12 PLMD found as well (8) Osteopenia: Status: Chronic Problem details: Fosamax 07/2016, continue x10 years. DS: Summary Hospital Course Hospital Course: [age] YEAR OLD FEMALE PAST MEDICAL HISTORY SIGNIFICANT FOR HYPERTENSION, OSTEOPENIA, RAFAELA, GENERALIZED ANXIETY DISORDER WAS ADMITTED TO THE medical floor FOR further pain management and placement needs status post recent fall without evidence of acute fracture. COURSE OF CARE AND DETAILS NOTED ABOVE. REMAINDER OF CHRONIC MEDICAL COMORBIDITIES WERE MONITORED AND MANAGED WITH HOME MEDICATIONS. Status at Discharge Overall status at discharge: patient is progressing back to baseline Time Spent with Patient Time attestation: Total time spent providing and/or coordinating discharge services: Time spent: Greater than 30 minutes Exam Narrative: Exam Narrative: PHYSICAL EXAM General: Sitting up in chair, pleasant, conversant, NAD, less anxious this morning HEENT: Normocephalic, atraumatic, sclera white, EOMI, oral mucosa moist Cardiovascular: RRR, S1S2. No pitting edema Pulmonary: CTA bilaterally without rhonchi, rales, expiratory wheezes. No dyspnea Neurological: Alert, answering questions appropriately, cranial nerves intact, no focal findings Extremities: No gross joint deformity or swelling. AROMI. Neurovascularly intact Skin: Warm, dry. Const: Vital Signs, click to edit/add: Vital Signs - 24 hr 09/19/23 11:45 09/19/23 15:00 09/19/23 15:00 Temperature 98 F 97.3 F L Pulse Rate [Pulse Oximeter] 63 68 68 Respiratory Rate 16 16 16 Blood Pressure [Le ft Arm] 147/59 H 113/75 Blood Pressure [Ri ght Arm] Pulse Oximetry 95 96 Oxygen Delivery Me thod Room Air Room Air 09/19/23 18:44 09/19/23 23:30 09/19/23 23:30 Temperature 97.1 F L 97.5 F L Pulse Rate [Pulse Oximeter] 70 67 Respiratory Rate 18 16 16 Blood Pressure [Le ft Arm] 118/60 Blood Pressure [Ri ght Arm] 124/65 Pulse Oximetry 97 96 Oxygen Delivery Me thod Room Air Room Air 09/20/23 04:30 09/20/23 08:34 Temperature 97.9 F 97.2 F L Pulse Rate [Pulse Oximeter] 64 58 L Respiratory Rate 16 16 Blood Pressure [Le ft Arm] 132/89 Blood Pressure [Ri ght Arm] 135/61 Pulse Oximetry 96 96 Oxygen Delivery Me thod Room Air Room Air DS: Data Data Completed and Pending Pending studies at discharge: Urine culture Labs on day of discharge: Labs from last 24 hours 09/20/23 09/20/23 10:41 06:18 Sodium 139 Potassium 4.5 Chloride 107 Carbon Dioxide 23 Anion Gap 9 BUN 39 H Creatinine 1.8 H Estimated Creat Clear 21.17 Estimated GFR 28 Glucose 106 Calcium 9.5 SARS-CoV-2 Ag (Rapid) Pending Preliminary micro results at discharge 09/18/23 18:33 Urine Culture - Preliminary Urine,Clean Catch Discharge Plan Discharge Disposition: [facility] Date of Admission: 09/17/23 13:19 Attending Provider on Discharge: Mariah Qureshi Primary Care Provider: Nisha Ladd Condition: Improved Anticipated Discharge Date/Time: 09/20/23 11:17 Discharge Medications: New acetaminophen 325 mg Tablet 650 mg PO Q6H Qty: 120 0RF lidocaine 5 % Adhesive Patch,Medicated 1 patch transdermal DAILY Qty: 15 0RF Rx Instructions: OTC oxycodone 5 mg Tablet 2.5 mg PO Q4H PRNQty: 12 0RF Continued lisinopril 10 mg tablet 10 mg PO HS simvastatin 40 mg tablet 40 mg PO HS alendronate 70 mg tablet 70 mg PO QWEEK Patient Comments: ON SUNDAYS bupropion HCl 300 mg tablet extended release 24 hr 300 mg PO DAILY calcium carbonate [Antacid (calcium carbonate)] 200 mg calcium (500 mg) tablet,chewable 400 mg PO DAILY cyanocobalamin (vitamin B-12) 1,000 mcg capsule 1,000 mcg PO DAILY hydrochlorothiazide 25 mg tablet 25 mg PO DAILY zinc acetate 50 mg (zinc) capsule 50 mg PO HS omeprazole 20 mg capsule,delayed release(DR/EC) 20 mg PO DAILY buspirone 15 mg tablet 15 mg PO TID Patient Comments: TAKES 15MG QAM AND 30MG QHS mirtazapine 30 mg tablet 30 mg PO HS nystatin [Nyamyc] 100,000 unit/gram powder 1 applic topical PRN Patient Comments: STOMACH SORES prochlorperazine maleate 10 mg tablet 10 mg PO TID PRN Patient Comments: TAKES 2-3 TIMES DAILY PRN Discontinued zolpidem 5 mg tablet 5 mg PO QHS PRN (Reason: sleep) hydrocodone-acetaminophen 5-325 mg tablet 1 tab PO Q4-6H PRN (Reason: pain) Qty: 15 0RF Hold Instructions: TAKES PRN Discharge Orders: Discharge Order (Routine); Ordered 09/20/23 Ordered By: Mariah Qureshi Additional Instructions: Recommend OTC lidocaine patch to right lower back/hip, scheduled Tylenol, minimizing use of oxycodone for pain. Ice/heat to area as needed. Avoid NSAIDs with recent BRANDON (naproxen discontinued). Will need recheck creatinine 3-5 days. Continue to work with PT and OT. Urine culture pending on day of discharge for current asymptomatic bacteriuria. No antibiotics prescribed at this time, pending results. Activity Level: Activity as Tolerated and Other Activity Detail: Per PT/OT Discharge Diet: Regular Follow Up Appointments: [facility] [Outside] (Patient being discharged to [facility]. ) Nisha Ladd MD [Primary Care Provider] - (Following discharge, SNF care.) Forms: [facility] Info Instructions Admit to: SNF Discharge Potential: Good Length of Stay: <30 days Can use facility standing orders?: Yes Code Status: Full Code TEDs: Bilateral Knee Rehab Potential: Good Therapy: Physical Therapy and Occupational Therapy Therapy Orders: Evaluate and Treat Oxygen: No Urinary Catheter: No Lab Orders: Will need Creatinine 3-5 days (1.8 on day of discharge) Orders are good >30 days: No Signature: Mariah Qureshi, AMAURY, PA-C [facility] Hospitalist
[2023-09-20 11:48] LABS: SARS Antigen* Negative (Negative)
[2023-09-20 12:04] VITALS: BP 128/53; PULSE 62; RESP 16; TEMP 36.7; O2SAT 96
--- NOTE | 2023-09-20 13:00 | PC.NURSE ---
Patient was discharged to [address] [place] [address] via non emergent EMS. All belongings sent with patient. PIV taken out and catheter intact. Nurse to Nurse report was given to dEwar TORRES.
--- NOTE | 2023-09-20 14:20 | PC.SOCIAL ---
Discharge planning: Pt was accepted today to [facility] for private pay rehabilitation. Pt explained that she wanted the shared room at the facility and this social science manager passed along that information to Nanette at [facility]. Pt was transported to [facility] via non-emergency EMS and signed the needed paperwork for the transfer. Pre-admission correction screening was completed. Confirmation #[id number]. No other rn social work follow-up is needed at this time.
== END 2023-09-20 13:00 ==
LOC: ED 12:57 → MEDSURG 13:21
PROVIDERS: Admitting Provider Family Medicine; Emergency Provider Family Medicine; PCP Family Medicine; Visit Provider Family Medicine
DX: S79.911A Unspecified injury of right hip, initial encounter (principal); M25.551 Pain in right hip; M79.18 Myalgia, other site; M54.50 Low back pain, unspecified; M79.651 Pain in right thigh; M62.81 Muscle weakness (generalized); K59.00 Constipation, unspecified; R74.8 Abnormal levels of other serum enzymes; R29.818 Other symptoms and signs involving the nervous system; N17.9 Acute kidney failure, unspecified; F41.1 Generalized anxiety disorder; M85.80 Other specified disorders of bone density and structure, unspecified site; K21.9 Gastro-esophageal reflux disease without esophagitis; I10 Essential (primary) hypertension; R26.81 Unsteadiness on feet; G47.33 Obstructive sleep apnea (adult) (pediatric); W19.XXXA Unspecified fall, initial encounter; I25.10 Atherosclerotic heart disease of native coronary artery without angina pectoris; Z98.61 Coronary angioplasty status; Z90.89 Acquired absence of other organs; Z90.49 Acquired absence of other specified parts of digestive tract; Z98.890 Other specified postprocedural states; Z87.891 Personal history of nicotine dependence
CPT/HCPCS: 36415; 72131; 73700; 80048; 81003; 81015; 84443; 85025; 86140; 87086; 87426; 96372; 97110; 97116; 97140; 97161; 97165; 97530; 97535; 99284; A9270; G0378; J1650

== ENCOUNTER 2023-09-20 12:58 | Outpatient (CLI) | payer MEDICARE, OTHER, SELFPAY | END 2023-09-20 12:59 | disposition home or self-care (01) | PROVIDERS: PCP Family Medicine; Visit Provider Family Medicine | DX: N17.9 Acute kidney failure, unspecified (principal) | CPT/HCPCS: A0425; A0428 ==

== ENCOUNTER 2023-11-23 10:54 | Emergency (ER) | payer MEDICARE, OTHER, SELFPAY ==
[2023-11-23] VITALS (15 sets, daily range): BP systolic 117–137; BP diastolic 52–101; PULSE 72–94; RESP 18; TEMP 35.9; O2SAT 90–97; BMI 24.0
--- NOTE | 2023-11-23 11:05 | ED_ITS ---
HPI - General Adult General Date Seen: 11/23/23 Chief complaint: Diarrhea Stated complaint: Diarrhea Time Seen by Provider: 11/23/23 11:01 History of Present Illness HPI narrative: This is an 83-year-old female with a past medical history of sleep apnea, coronary disease, depression/anxiety, hypertension, IBS, GERD, previous cholecystectomy, and a self-reported longstanding history of ?stomach problems? who presents to the ER today with her sister for evaluation of diarrhea, generalized weakness, chills. She began to be sick overnight son moody with nausea. Early Tuesday morning it may be 330 she was up and she vomited once and had a liquidy stool. Since then she has had intermittent nausea but no further vomiting. She has had fairly protracted diarrhea. It sounds like she has been having loose watery stools every day since then. She has been very weak and basically laying in bed all the time. She has not been eating much but she says she has been trying to drink Pedialyte to stay hydrated. However it sounds like she was only up wants to go to the bathroom to produce urine between Tuesday morning and today. Her stools were so loose and watery that they were hard to control so she was actually incontinent of stool. Yesterday her family got her some depends undergarments to help contain the leaks. She is feeling weak. She is not febrile. No recent travel. No antibiotics in the past several months. No history of C diff. No history of autoimmune intestinal diseases. They say that she had a workup through the [facility] about a year ago and apparently had ?some inflammation? in her stomach but no other serious problems. She is here with her sister. They indicate that they have been following her kidney function through her primary care office. Patient recalls that her most recent kidney function test was actually looking a bit better. In review of records through [facility] care link, I am able to see that she had ache BUN of 31 and a creatinine of 1.51 on 11/10/2022. In December 2022 creatinine was 1.07. In September creatinine was 1.36. Related Data Home Medications Medication Instructions Recorded Confirmed alendronate 70 mg tablet 70 mg PO QWEEK 09/27/22 09/17/23 lisinopril 10 mg tablet 10 mg PO HS 09/27/22 09/17/23 simvastatin 40 mg tablet 40 mg PO HS 09/27/22 09/17/23 bupropion HCl 300 mg 24 hr tablet, 300 mg PO DAILY 09/28/22 09/17/23 extended release calcium carbonate 200 mg calcium 400 mg PO DAILY 09/28/22 09/17/23 (500 mg) chewable tablet (Antacid (calcium carbonate)) cyanocobalamin (vitamin B-12) 1,000 mcg PO DAILY 09/28/22 09/17/23 1,000 mcg capsule hydrochlorothiazide 25 mg tablet 25 mg PO DAILY 09/28/22 09/17/23 zinc acetate 50 mg (zinc) capsule 50 mg PO HS 09/28/22 09/17/23 omeprazole 20 mg capsule,delayed 20 mg PO DAILY 09/15/23 09/17/23 release buspirone 15 mg tablet 15 mg PO TID 09/17/23 09/17/23 mirtazapine 30 mg tablet 30 mg PO HS 09/17/23 09/17/23 nystatin 100,000 unit/gram topical 1 applic topical PRN 09/17/23 09/17/23 powder ([facility]) prochlorperazine maleate 10 mg 10 mg PO TID PRN 09/17/23 09/17/23 tablet Previous Rx's Medication Instructions Recorded acetaminophen 325 mg tablet 650 mg (2 x 325 mg) PO Q6H #120 09/20/23 tabs lidocaine 5 % topical patch 1 patch transdermal DAILY #15 ea 09/20/23 oxycodone 5 mg tablet 2.5 mg (1/2 x 5 mg) PO Q4H PRN #12 09/20/23 tabs loperamide 2 mg capsule 2 mg PO Q6H PRN loose stool #10 11/23/23 (Anti-Diarrheal (loperamide)) caps ondansetron 4 mg disintegrating 4 mg PO Q8H PRN nausea and 11/23/23 tablet vomiting #10 tabs Allergies Allergy/AdvReac Type Severity Reaction Status Date / Time No Known Drug Allergies Allergy Verified 09/15/23 20:48 PFSH PFSH Medical History (Updated 11/23/23 @ 15:37 by Kurtis Elliott MD) Fall ?W19.XXXA - Unspecified fall, initial encounter (ICD-10) Discharge planning issues ?Z02.9 - Encounter for administrative examinations, unspecified (ICD-10) Generalized anxiety disorder ?F41.1 - Generalized anxiety disorder (ICD-10) Pre-diabetes ?R73.03 - Prediabetes (ICD-10) Major depression, recurrent ?F33.9 - Major depressive disorder, recurrent, unspecified (ICD-10) Hypercholesterolemia ?E78.00 - Pure hypercholesterolemia, unspecified (ICD-10) Other nonspecific abnormal cardiovascular system function study ?R94.39 - Abnormal result of other cardiovascular function study (ICD-10) Colon polyp ?K63.5 - Polyp of colon (ICD-10) RAFAELA (obstructive sleep apnea) ?G47.33 - Obstructive sleep apnea (adult) (pediatric) (ICD-10) CAD (coronary artery disease) ?I25.10 - Atherosclerotic heart disease of [place] coronary artery without angina pectoris (ICD-10) PLMD (periodic limb movement disorder) ?G47.61 - Periodic limb movement disorder (ICD-10) Pyoderma gangrenosa ?L88 - Pyoderma gangrenosum (ICD-10) Compression fracture of twelfth thoracic vertebra ?S22.080A - Wedge compression fracture of T11-T12 vertebra, initial encounter for closed fracture (ICD-10) Osteopenia ?M85.80 - Other specified disorders of bone density and structure, unspecified site (ICD-10) Hypertension ?I10 - Essential (primary) hypertension (ICD-10) IBS (irritable bowel syndrome) ?K58.9 - Irritable bowel syndrome without diarrhea (ICD-10) Esophageal reflux ?K21.9 - Gastro-esophageal reflux disease without esophagitis (ICD-10) Surgical History (Updated 09/17/23 @ 16:09 by Tram Juárez MD) Postsurgical percutaneous transluminal coronary angioplasty (PTCA) status ?Z98.61 - Coronary angioplasty status (ICD-10) History of tonsillectomy and adenoidectomy ?Z90.89 - Acquired absence of other organs (ICD-10) History of esophagogastroduodenoscopy (EGD) ?Z98.890 - Other specified postprocedural states (ICD-10) History of colonoscopy ?Z98.890 - Other specified postprocedural states (ICD-10) History of laparoscopic cholecystectomy (~1998) ?Z90.49 - Acquired absence of other specified parts of digestive tract (ICD- 10) History of lumpectomy of left breast ?Z98.890 - Other specified postprocedural states (ICD-10) Family History (Updated 09/17/23 @ 16:10 by Tram Juárez MD) Mother Heart disease High cholesterol Maternal Grandfather Heart disease Social History (Updated 09/17/23 @ 18:41 by Tram Juárez MD) Narrative: Lives with (who has chronic leukemia, chronic lymphedema and recurrent gout, impaired ambulation). Smoked 20 pack years, quit in 1991, no history of smokeless tobacco. Denies alcohol use. Denies recreational drug use. What is your current living situation?: I presently have a place to live Problems where you live: no known problems Problems where you live details: NA In the past 12 months, utilities in danger of being shut off: no In past 12 months, lack of transportation kept you from medical appts, meetings, work, or getting things needed for daily living: no In the past 12 mos, have been you worried that your food would run out before you had money to buy more?: never true In the past 12 mos, the food you bought just didn't last and you didn't have money to buy more?: never true Highest level of school completed/degree received: high school graduate Smoking Status: Former smoker Do you use any of these nicotine containing products: None Second hand tobacco smoke exposure: No How often do you have a drink containing alcohol: never AUDIT-C Alcohol total score: 0 Non-prescribed substance use: denies use Caffeine: No How often does anyone, including family, friends and others, physically hurt you : never How often does anyone, including family, friends and others, insult or talk down to you: never How often does anyone, including family, friends and others, threaten you with harm: never How often does anyone, including family, friends and others, scream or curse at you: never service: No Exam Narrative: Exam Narrative: Constitutional: Appears well-developed and well-nourished. Alert. Conversant. Looks tired and run down, but overall, Non toxic. HENT: Head: Atraumatic. Nose: Nose normal. Mouth/Throat: Oral mucosa is clear but dry. no trismus. Pharynx normal. Tonsils symmetric. No tonsillar enlargement, erythema, or exudate. Eyes: Conjunctivae normal. EOM normal. Pupils equal, round, and reactive to light. No scleral icterus. Neck: Normal range of motion. Neck supple. No tracheal deviation present. Cardiovascular: Normal rate, regular rhythm. No gallop. No friction rub. No murmur heard. Pulmonary/Chest: Effort normal. No stridor. No respiratory distress. No wheezes. No rales. No rhonchi . Abdominal: Soft. Bowel sounds hyperactive but not tinkling and rushing to. No distension. No mass. No tenderness. No rebound. No guarding. No CVA tenderness Musculoskeletal: RUE: Normal range of motion. No tenderness. No deformity LUE: Normal range of motion. No tenderness. No deformity RLE: Normal range of motion. No edema. No tenderness. No deformity LLE: Normal range of motion. No edema. No tenderness. No deformity Neurological: Alert and oriented to person, place, and time. Normal strength. CN II-VII intact. No sensory deficit. GCS eye subscore is 4. GCS verbal subscore is 5. GCS motor subscore is 6. Normal coordination . Mild tremor. Skin: Skin is warm and dry. No rash noted. No pallor. Normal capillary refill. Psychiatric: Normal mood. Normal affect. Const: Vital Signs, click to edit/add: Vital Signs - 24 hr 11/23/23 11:00 11/23/23 12:00 11/23/23 12:01 Temperature 96.7 F L Pulse Rate 75 79 Pulse Rate [Pulse Oximeter] 94 Respiratory Rate 18 Blood Pressure 117/58 L Blood Pressure [Ri ght Upper Arm] 129/66 Pulse Oximetry [address] [facility] 11/23/23 12:15 11/23/23 12:30 11/23/23 12:31 Temperature Pulse Rate 73 73 72 Pulse Rate [Pulse Oximeter] Respiratory Rate Blood Pressure 117/52 L Blood Pressure [Ri ght Upper Arm] Pulse Oximetry 95 [address] 11/23/23 12:45 11/23/23 13:00 11/23/23 13:02 Temperature Pulse Rate 74 80 74 Pulse Rate [Pulse Oximeter] Respiratory Rate Blood Pressure 119/59 L Blood Pressure [Ri ght Upper Arm] Pulse Oximetry [address] [facility] 11/23/23 13:03 11/23/23 13:15 11/23/23 13:32 Temperature Pulse Rate 84 72 Pulse Rate [Pulse Oximeter] Respiratory Rate Blood Pressure 137/86 Blood Pressure [Ri ght Upper Arm] Pulse Oximetry 97 93 Oxygen Delivery Me thod 11/23/23 14:01 11/23/23 14:32 11/23/23 14:32 Temperature Pulse Rate Pulse Rate [Pulse Oximeter] Respiratory Rate Blood Pressure 129/101 H 137/59 L 137/59 L Blood Pressure [Ri ght Upper Arm] Pulse Oximetry Oxygen Delivery Me thod 11/23/23 15:01 Temperature Pulse Rate Pulse Rate [Pulse Oximeter] Respiratory Rate Blood Pressure 122/55 L Blood Pressure [Ri ght Upper Arm] Pulse Oximetry Oxygen Delivery Me thod Course Course ED Course: Recheck-12:00 p.m.. Patient says she still feels mildly nauseous. No pain. No fever. No further vomiting or diarrhea since she arrived. IV fluid is hanging but not running. I rechecked. Her IV is positional. I had her straighten her left elbow and the IV is running nicely. Will order Reglan to see if it works better than Zofran. Recheck-10 22. Labs show an acute kidney injury with a creatinine up from baseline of 1.36 last month to 2.1 today. Fortunately no signs of life- threatening hyperkalemia or CHF. Will administered 2 L of crystalloid and recheck creatinine. Reevaluation(s) Reevaluation #1: Recheck-. Says she is feeling back to normal. Mild ongoing nausea, but that is been chronic for her for most of her adult life. He has actually been tolerating p.o. pretty well. Had some old male and some fruit cup and has had plenty of water. Vital Signs Vital signs: Initial Vital Signs Temperature 96.7 F L 11/23/23 11:00 Temperature Source Temporal Artery Scan 11/23/23 11:00 Pulse Rate 94 11/23/23 11:00 Respiratory Rate 18 11/23/23 11:00 Blood Pressure 129/66 11/23/23 11:00 Blood Pressure Mean 87 11/23/23 11:00 Blood Pressure Position Supine 11/23/23 11:00 Pulse Oximetry 96 11/23/23 11:00 Oxygen Delivery Method Room Air 11/23/23 11:00 Vital Signs Temperature 96.7 F L 11/23/23 11:00 Pulse Rate 94 11/23/23 11:00 Respiratory Rate 18 11/23/23 11:00 Blood Pressure 129/66 11/23/23 11:00 Pulse Oximetry 96 11/23/23 11:00 Oxygen Delivery Method Room Air 11/23/23 11:00 Temperature 96.7 F L 11/23/23 11:00 Pulse Rate 72 11/23/23 13:15 Respiratory Rate 18 11/23/23 11:00 Blood Pressure 122/55 L 11/23/23 15:01 Pulse Oximetry 93 11/23/23 13:15 Oxygen Delivery Method Room Air 11/23/23 11:00 Medications Administered Medications: Discontinued Medications Generic Name Dose Route Start Last Admin Trade Name Freq PRN Reason Stop Dose Admin Sodium Chloride 1,000 mls @ 1,000 mls/hr 11/23/23 11:30 11/23/23 13:01 0.9 % Sodium Chloride 1000 Ml IV 11/23/23 12:29 Infused .Q1H SHAUNNA Infusion Lactated Ringer's 1,000 ml 11/23/23 12:34 11/23/23 13:01 Lactated Ringers 1000 Ml IV 11/23/23 12:35 1,000 ml ONCE ONE Administration Loperamide HCl 4 mg 11/23/23 11:22 11/23/23 11:55 Loperamide Hcl 2 Mg Capsule PO 11/23/23 11:23 4 mg ONCE ONE Administration Metoclopramide HCl 10 mg 11/23/23 12:34 11/23/23 13:01 Metoclopramide Hcl 5 Mg/Ml Inj IVP 11/23/23 12:35 10 mg ONCE ONE Administration Ondansetron HCl 4 mg 11/23/23 11:22 11/23/23 11:55 Ondansetron Odt 4 Mg Tab PO 11/23/23 11:23 4 mg ONCE ONE Administration Ondansetron HCl 4 mg 11/23/23 11:50 11/23/23 13:00 Ondansetron 2 Mg/Ml Inj IVP 11/23/23 11:51 4 mg ONCE ONE Administration Medical Decision Making MDM Narrative Medical decision making narrative: This patient presents with an illness that began 3 days ago, with 1 episode of vomiting but many episodes of watery diarrhea . The patient's symptoms and exam could be consistent with a viral GI infection. There is no high fever, severe pain, bilious or bloody emesis, blood or mucous in the stool, severe abdominal pain, or other concerning signs for a bacterial infection. No recent travel or high risk exposure for baceraial pathogen. No recent antibiotics or risk factors for C. diff. I don't see any evidence for appendicitis, bowel obstruction, abscess, bowel perforation, or other surgical emergency. Labs show no concerning electrolyte disturbance. Initial labs showed acute kidney injury with a creatinine up from baseline of 1.3 up to 2.1. She received 2 L of crystalloid and repeat creatinine is improving down to 1.7. After meds given the patient is feeling better. At this point, the patient is non-septic appearing and well hydrated.I think the patient can be managed as an outpatient. We have discussed oral rehydration strategies. They understand and can perform the needed interventions at home. I have provided a prescription for antiemetics to facilitate oral hydration (and Zofran for nausea, Imodium for diarrhea.). We have discussed the signs and symptoms of worsening dehydration. They understand the need for immediate reevaluation if any of these symptoms occur. They are also directed to obtain close outpatient follow up within 2-3 days. Even if she is completely better, recheck with primary care to repeat creatinine within 1-2 weeks. Lab Data Labs: Lab Results 11/23/23 11/23/23 Range/Units 11:51 14:28 WBC 8.73 (4.50-11.00) K/uL RBC 4.97 (4.00-5.20) m/uL Hgb 15.3 (12.0-16.0) gm/dL Hct 45.8 (33.0-51.0) % MCV 92 (80-100) fL MCH 31 (26-34) pg MCHC 33 (32-36) gm/dL RDW Coeff of [place] 13.3 (11.5-15.5) % Plt Count 291 (140-440) K/uL Neut % (Auto) 76.0 H (42.0-72.0) % Lymph % (Auto) 13.1 L (20-44) % [place] % (Auto) 10.3 (0.0-11.0) % Eos % (Auto) 0.1 (0.0-7.0) % Baso % (Auto) 0.0 (0.0-3.0) % Neut # (Auto) 6.60 (1.7-7.0) K/uL Lymph # (Auto) 1.10 (0.90-2.90) K/uL [place] # (Auto) 0.90 (0.00-0.90) K/UL Eos # (Auto) 0.01 (0.00-0.50) K/uL Baso # (Auto) 0.00 (0.00-0.30) K/uL Abs Immat Gran (auto) 0.04 (0.00-0.30) K/uL Imm/Tot Granulo (auto) 0.5 % Sodium 138 138 (135-149) mmol/L Potassium 3.7 3.2 L (3.6-5.1) mmol/L Chloride 106 108 (96-114) mmol/L Carbon Dioxide 14 L 15 L (20-32) mmol/L Anion Gap 18 H 15 (7-15) mEq/L BUN 66 H 57 H (7-30) mg/dL Creatinine 2.1 H 1.7 H (0.5-1.5) mg/dL Estimated Creat Clear 18.14 22.41 Estimated GFR 23 30 ml/min Glucose 73 69 (60-115) mg/dL Lactate 1.4 (0.5-1.9) mmol/L Calcium 9.2 8.5 (8.4-10.6) mg/dL Total Bilirubin 0.8 (0.1-1.5) mg/dL AST 65 H (12-35) U/L ALT 41 H (4-35) U/L Alkaline Phosphatase 101 (40-150) U/L Total Protein 7.7 (6.0-8.3) g/dL Albumin 4.4 (3.3-5.0) g/dL ECG Data Attestation: I personally reviewed and interpreted this ECG as follows: Interpretation: Normal sinus rhythm . rate 82 IL 130 QRS axis: low voltage LAFB ST segment/T wave: nonspecific flat T waves III, V2, V3. V4. QTc: 450 Discharge Plan Discharge Clinical Impression: BRANDON (acute kidney injury), Acute dehydration, Diarrhea Patient Disposition: Home, Self-Care Condition: Stable Instructions: Dehydration (ED), Acute Diarrhea (ED) Additional Instructions: Please come back to the ER or see your doctor tomorrow if your still having symptoms of nausea, dehydration, or ongoing diarrhea so the you can be re- evaluated and have your kidney function rechecked. Please try to stay hydrated with plenty of water, Gatorade, or other liquids. Add solid foods as you feel up to it. Use nausea medicine (Zofran) if needed for nausea. Use diarrhea medicine (Imodium) only if needed for ongoing diarrhea. If your symptoms resolve any get back to normal, please recheck with your regular doctor at the [facility] clinic in 1-2 weeks to recheck your kidney function blood test Prescriptions: New loperamide [Anti-Diarrheal (loperamide)] 2 mg capsule 2 mg PO Q6H PRN (Reason: loose stool) Qty: 10 0RF ondansetron 4 mg tablet,disintegrating 4 mg PO Q8H PRN (Reason: nausea and vomiting) Qty: 10 0RF No Action lisinopril 10 mg tablet 10 mg PO HS simvastatin 40 mg tablet 40 mg PO HS alendronate 70 mg tablet 70 mg PO QWEEK Patient Comments: ON SUNDAYS bupropion HCl 300 mg tablet extended release 24 hr 300 mg PO DAILY calcium carbonate [Antacid (calcium carbonate)] 200 mg calcium (500 mg) tablet,chewable 400 mg PO DAILY cyanocobalamin (vitamin B-12) 1,000 mcg capsule 1,000 mcg PO DAILY hydrochlorothiazide 25 mg tablet 25 mg PO DAILY zinc acetate 50 mg (zinc) capsule 50 mg PO HS omeprazole 20 mg capsule,delayed release(DR/EC) 20 mg PO DAILY buspirone 15 mg tablet 15 mg PO TID Patient Comments: TAKES 15MG QAM AND 30MG QHS mirtazapine 30 mg tablet 30 mg PO HS nystatin [Nyamyc] 100,000 unit/gram powder 1 applic topical PRN Patient Comments: STOMACH SORES prochlorperazine maleate 10 mg tablet 10 mg PO TID PRN Patient Comments: TAKES 2-3 TIMES DAILY PRN acetaminophen 325 mg Tablet 650 mg PO Q6H Qty: 120 0RF lidocaine 5 % Adhesive Patch,Medicated 1 patch transdermal DAILY Qty: 15 0RF Rx Instructions: OTC oxycodone 5 mg Tablet 2.5 mg PO Q4H PRNQty: 12 0RF Follow Up/Referrals: Nisha Ladd MD [Primary Care Provider] - Stand Alone Forms: [employer] Info Instructions
[2023-11-23] MEDS: LOPERAMIDE HCL 2 MG CAPSULE 4 MG PO (11:55)
[2023-11-23] MEDS: 0.9 % SODIUM CHLORIDE 1000 ml 1,000 ML IV (11:55)
[2023-11-23] MEDS: ONDANSETRON ODT 4 MG TAB PO (11:55)
--- OUTSIDE RECORDS SUMMARY | 2023-11-23 11:57 | XMS_ITS | Encounter Summary ---
Author Name Unknown Organization [facility] Address [address] [place] [address]. [place] [address] Care Team Providers Care Disability Coordinator Name Role Phone Nisha Ladd Primary Care Provider [phone] Encounter Details Date Type Department Care Team (Late st Contact Info) Description 11/15/[address] [facility] [address] [place] [id number] Outside, Provider Social History Tobacco Use Types Packs/Day Years Used Date Smoking Tobacco: Never Assessed Sex and Gender Information Value Date Recorded Sex Assigned at Not on file Gender Identity Not on file Sexual Orientation Not on file COVID-19 Exposure Response Date Recorded In the last 10 days, have yo u been in contact with someone who was confirmed or suspected to have Coronavirus/COVID-19? No / Unsure 11/22/2022 8:18 AM CARDIAC NURSE documented as of this encounter Plan of Treatment Not on file documented as of this encounter Visit Diagnoses Not on filedocumented in this encounter Care Teams Disability Coordinator Relationship Specialty Start Date End Date Nisha Ladd [address] [place] [address] PCP - General Family Medicine 11/22/22 documented as of this encounter
--- OUTSIDE RECORDS SUMMARY | 2023-11-23 11:57 | XMS_ITS | Referral Summary ---
Author Name Unknown Organization [facility] Address [address] [place] [id number] Care Team Providers Care Statement Services Representative Name Role Phone Wilberto, Nisha Padgett Primary Care Provider [phone] Allergies No known active allergies Medications Medication Sig Dispensed Refills Start Date End Date Status alendronate (FOSAMAX) 70 MG tablet Take 70 mg by mouth 0 02/15/2022 Active buPROPion (WELLBUTRIN XL) 300 MG 24 hr tablet TAKE ONE TABLET BY MOUTH EVERY MORNING PT will call when needed 0 04/16/2022 Active busPIRone (BUSPAR) 15 MG tablet Take 1/2 tab by mouth twice daily for 1 week, then increase to 1 tablet twice daily 0 11/02/2022 Active hydrochlorothiazide (HYDRODIURIL) 25 MG tablet Take 25 mg by mouth 0 02/15/2022 Active lisinopril (ZESTRIL) 10 MG tablet Take 1 tablet by mouth daily 0 03/15/2022 Active mirtazapine (REMERON) 7.5 MG tablet Take 1 tablet by mouth At Bedtime 0 11/02/2022 Active nystatin (MYCOSTATIN) 079468 UNIT/GM external powder 0 05/26/2022 Active simvastatin (ZOCOR) 40 MG tablet Take 40 mg by mouth daily 0 02/15/2022 Active zolpidem (AMBIEN) 5 MG tablet Take 1 tablet by mouth nightly as needed 0 09/15/2022 Active zinc gluconate 50 MG tablet Take 50 mg by mouth daily 0 Active calcium carbonate (TUMS) 500 MG chewable tablet Take 1 chew tab by mouth 2 times daily 0 Active Cyanocobalamin (B-12) 1000 MCG TBCR 0 Acti ve omeprazole (PRILOSEC) [address] capsuleIndications:C hronic gastritis with bleeding, unspecified gastritis type Take 1 capsule (20 mg) by mouth every morning (before breakfast) 90 capsule 3 11/22/2022 Active Social History Tobacco Use Types Packs/Day Years Used Date Smoking Tobacco: Former Cigarettes Q uit: 1991 Smokeless Tobacco: Never Tobacco Cessation:Counseling Given: Not Answered Alcohol Use Standard Drinks/Week Comments Never 0 (1 standard drink = 0.6 oz pur e alcohol) Adolescent Education Answer Date Record ed Getting School Help Needed Not on file 07/31 Sex and Gender Information Value Date Recorded Sex Assigned at Not on file Gender Identity Not on file Sexual Orientation Not on file Last Filed Vital Signs Vital Sign Reading Time Taken Comments Blood Pressure 158/67 11/22/2022 12:15 PM REVENUE INTEGRITY ANALYST Pulse 69 11/22/2022 12:15 PM REVENUE INTEGRITY ANALYST Temperature 36.8 ??C (98.2 ??F) 11/22/2022 11:[address] Respiratory Rate 16 11/22/2022 12:15 PM REVENUE INTEGRITY ANALYST Oxygen Saturation 97% 11/22/2022 12:15 PM REVENUE INTEGRITY ANALYST Inhaled Oxygen Concentration - - Weight 66.7 kg (147 lb 1.6 oz) 11/22/2022 8:57 A M [employer]VENUE INTEGRITY ANALYST Height 162.6 cm (5' 4) 11/22/2022 8:57 AM REVENUE INTEGRITY ANALYST Body Mass Index 25.25 11/22/2022 8:57 AM REVENUE INTEGRITY ANALYST Plan of Treatment Not on file Care Teams Statement Services Representative Relationship Specialty Start Date End Date Nisha Ladd [address] [place] [address] PCP - General Family Medicine 11/22/22
--- OUTSIDE RECORDS SUMMARY | 2023-11-23 11:57 | XMS_ITS | Encounter Summary ---
Author Name Unknown Organization [facility] Address [address] [place] [address] Care Team Providers Care Civil Engineering Designer Name Role Phone Nisha Ladd Primary Care Provider [phone] Encounter Details Date Type Department Care Team (Latest Contact Info) Description 3 Medical Correspondence [facility] Services [address] [place] [id number] Outside, Provider ESOPHAGOGASTRODUODENOSCOPY ORDER [facility] Social History Tobacco Use Types Packs/Day Years Used Date Smoking Tobacco: Former Cigarettes Q uit: 1991 Smokeless Tobacco: Never Alcohol Use Standard Drinks/Week Comments Never 0 (1 standard drink = 0.6 oz pur e alcohol) Sex and Gender Information Value Date Recorded Sex Assigned at Not on file Gender Identity Not on file Sexual Orientation Not on file documented as of this encounter Plan of Treatment Not on file documented as of this encounter Visit Diagnoses Not on filedocumented in this encounter Care Teams Civil Engineering Designer Relationship Specialty Start Date End Date [place] [address] PCP - General Family Medicine 11/22/22 documented as of this encounter
--- OUTSIDE RECORDS SUMMARY | 2023-11-23 11:57 | XMS_ITS | Clinical Summary ---
Author Name Unknown Organization [facility] Address [address] [place] [id number] Care Team Providers Care [employer]er [employer]ace Name Role Phone Wilberto, Nisha Padgett Primary Care Provider [phone] Allergies No known active allergies Medications Medication [...] At Bedtime 0 11/02/2022 Active nystatin (MYCOSTATIN) 222311 UNIT/GM external powder 0 05/26/2022 Active simvastatin [...] Comments Blood Pressure 158/67 11/22/2022 12:15 PM LOCKSTITCH COAT JOINER Pulse 69 11/22/2022 12:15 PM LOCKSTITCH COAT JOINER Temperature 36.8 ??C (98.2 ??F) 11/22/2022 11:[address] Respiratory Rate 16 11/22/2022 12:15 PM LOCKSTITCH COAT JOINER Oxygen Saturation 97% 11/22/2022 12:15 PM LOCKSTITCH COAT JOINER Inhaled Oxygen Concentration - - Weight 66.7 kg (147 lb 1.6 oz) 11/22/2022 8:57 A M LOCKSTITCH COAT JOINER Height 162.6 cm (5' 4) 11/22/2022 8:57 AM LOCKSTITCH COAT JOINER Body Mass Index 25.25 11/22/2022 8:57 AM LOCKSTITCH COAT JOINER Plan of Treatment Health Maintenance Due Date Last Done Comments ADVANCE CARE PLANNING 1942 ANNUAL REVIEW OF HM ORDERS 1942 DEXA 1942 RSV VACCINE ( & 60+) (1 - 1-dose 60+ series) 2002 FALL RISK ASSESSMENT 2007 MEDICARE ANNUAL WELLNESS VISIT 2007 DTAP/TDAP/TD IMMUNIZATION (2 - Td or Tdap) 06/18/2021 06/18/2011, 04/19/2005 COVID-19 Vaccine ( season) 2023 07/26/2022, 02/15/2022, 08/04/2021, Additional history exists INFLUENZA VACCINE (#1) 2023 2, 07/27/2021, 08/07/2020, Additional history exists PHQ-2 (once per calendar year) 2023 Pneumococcal Vaccine: 65+ Years Completed 07/15/2015, 06/10/2008 ZOSTER IMMUNIZATION Completed 10/31/2020, 0 HPV IMMUNIZATION Aged Out No longer e ligible based on patient's age to complete this topic IPV IMMUNIZATION Aged Out No longer e ligible based on patient's age to complete this topic MENINGITIS IMMUNIZATION Aged Out No l onger eligible based on patient's age to complete this topic RSV MONOCLONAL ANTIBODY Aged Out No l onger eligible based on patient's age to complete this topic Care Teams [employer] Relationship Specialty Start Date End Date Nisha Ladd [address] [place] [address] PCP - General Family Medicine 11/22/22
--- OUTSIDE RECORDS SUMMARY | 2023-11-23 11:58 | XMS_ITS | Clinical Summary ---
Author Name Unknown Organization [facility] Address [place], [place] [address] Care Team Providers Care Livestock Feeder Name Role Phone HasmukhstuLinette wagner Unavailable Shaggy Albrecht MD Unavailable Sridhar La Unavailable Nisha Ladd MD Primary Care Provider Allergies No known active allergies Medications Medication Sig Dispensed Refills Start Date End Date Status cyanocobalamin (VITAMIN B-12) 1,000 mcg tabletIndications:B12 deficiency Take 1 tablet by mouth once daily. 90 tablet 0 9 Active durable medical equipment (DME)Indications:Essenti al hypertension Automated home BP cuff. Length of need: 99 1 Each 0 2 Active zinc 50 mg tablet Take 1 Tablet (50 mg) by mouth once daily. 0 3 Active alendronate (FOSAMAX) 70 mg tabletIndications:Compre ssion fracture of twelfth thoracic vertebra with routine healing,Osteoporosis, unspecified osteoporosis type, unspecified pathological fracture presence Take 1 Tablet (70 mg) by mouth once a week in the morning. Take on empty stomach with full glass of water. Do not lie down for 1 hr. 12 Tablet 3 3 Active lisinopriL (PRINIVIL; ZESTRIL) 10 mg tabletIndications:Essent ial hypertension Take 1 Tablet (10 mg) by mouth once daily. 90 Tablet 3 3 Active simvastatin (ZOCOR) 40 mg tabletIndications:Pure hypercholesterolemia Take 1 Tablet (40 mg) by mouth at bedtime. 90 Tablet 3 3 Active omeprazole (PRILOSEC) 20 mg Delayed-Release capsule 0 3 Active prochlorperazine (COMPAZINE) 10 mg tablet 0 02 3 Active Nyamyc powderIndications:Yeast infection of the skin APPLY ONE STRIP TOPICALLY TO AFFECTED AREA(S) THREE TIMES DAILY 60 g 9 3 Active ibuprofen (ADVIL; MOTRIN) 200 mg tablet Take 600 mg by mouth 2 times daily if needed. 0 Active mirtazapine (REMERON) 30 mg tabletIndications:Dysthy henri,Generalized anxiety disorder,Insomnia, unspecified type Take 1 Tablet (30 mg) by mouth at bedtime. 90 Tablet 1 3 Active busPIRone (BUSPAR) 15 mg tabletIndications:Genera lized anxiety disorder,Insomnia, unspecified type TAKE ONE TABLET (15 MG) BY MOUTH IN THE MORNING AND TAKE 2 TABLETS (30 MG) AT BEDTIME 270 Tablet 1 3 Active hydroCHLOROthiazide (HCTZ) 25 mg tabletIndications:Essent ial hypertension Take 0.5 Tablets (12.5 mg) by mouth once daily. 0 3 Active buPROPion (WELLBUTRIN XL) 150 mg Extended-Release tabletIndications:Dysthy henri Take 1 Tablet (150 mg) by mouth once daily. 30 Tablet 1 4 Active buPROPion (WELLBUTRIN XL) 300 mg Extended-Release tabletIndications:Dysthy henri Take 1 Tablet (300 mg) by mouth once daily. 90 Tablet 1 3 11/17/19 24 Discontinu ed(*Medica tion adjustment ) Active Problems Problem Noted Date Diagnosed Date Major depression, recurrent 07/31/2018 Generalized anxiety disorder 07/31/2018 Compression fracture of twel fth thoracic vertebra with routine healing 06/15/2016 Overview: Fosamax 07/2016, continue x10 years. Osteopenia 06/15/2016 Pyoderma gangrenosa 02/19/2013 Irritable bowel syndrome 08/05/2011 Overview: GI consult from 05/2010 Prediabetes 06/24/2011 Anxiety state, unspecified 05/13/2011 Major depression, recurrent 04/08/2011 PLMD (periodic limb movement disorder) 0 RAFAELA 07/2010 AHI-12 PLMD found as well 08/31/2010 Colon polyp 04/21/2010 Overview: Colonoscopy 2002 - repeat in 5 years recommended Colonoscopy 04/2008 - no polyps seen, repeat 5 years given hx of polyp Colonoscopy 07/2013 diverticulosis repeat in 5 years CAD (coronary artery disease) 09/18/2008 Postsurgical percutaneous tr ansluminal coronary angioplasty status 06/07/2007 Overview: -04/21/07 S/P 1. Left main, Circumflex, RCA: Normal. 2. LAD: Normal vessel, but w/ a long narrow distal vessel which is intramyocardial w/ mild bridging. 5. LV: Normal L vent EF, LVEF of 65% w/ no focal wall motion abnormality. LVEDP 17 pre & 16 post L ventriculogram.(Dr Lawson) Esophageal reflux Overview: EGD 02/2009 Reactive gastropathy Unspecified essential hypertension Pure hypercholesterolemia Other nonspecific abnormal c ardiovascular system function study Overview: Stress echocardiogram 04/14/07 Stress test terminated due to an 8 beat run of VT Negative subjectively Echo images revealed LV dilatation and exercise induced global hypokinesia at low workload CTA 04/18/07 Moderate, nonobstructive CAD EF 75% with no regional WMA Stress echocardiogram 04/21/07 LV dilatation with SVT (verbal report from Dr. Nash) Obesity, unspecified Resolved Problems Problem Noted Date Diagnosed Date Resolved Date Major depressive disorder, r ecurrent episode, severe, without mention of psychotic behavior 05/13/2011 11/21/2012 RAFAELA 07/2010 AHI-12 08/31/2010 0 RAFAELA 07/2010 AHI-12 08/31/2010 0 NONSUSTAINED VENTRICULAR TACHYCARDIA 06/07/2007 02/15/2022 Depressive disorder, not elsewhere classified 11/21/2012 Other and unspecified angina pectoris 02/15/2022 Encounters Date Type Department Care Team Description 11/23/2023 Nurse Triage [facility] [address] [place] [address] Nihsa Ladd MD Diarrhea; Vomiting 11/17/2023 1:00 PM LOG LOADER HELPER Office Visit [facility] [address] [place] [address] Val Ray NP Medication Management; Follow Up 11/17/2023 Travel 11/09/2023 9:00 AM LOG LOADER HELPER Office Visit [facility] [address] [place] [phone] Alex Garcia PsyD, YOGI Family Therapy 11/09/2023 Travel 10/14/2023 11:45 AM LOG LOADER HELPER Office Visit [facility] [address] [place] [address] Nisha Ladd MD Hospital F/U (fall 09/19, pain in back end while moving ) 10/14/2023 Travel 10/11/2023 1:00 PM LOG LOADER HELPER Office Visit [facility] [address] [facility] [place] [address] Alex Garcia PsyD, YOGI Individual Therapy 10/11/2023 Travel 10/06/2023 Refill [facility] [address] [facility] [address] Nisha Ladd MD Refill Request (zolpidem (AMBIEN) 5 mg tablet/) 09/17/2023 Orders Only [facility] Scanner 1 scan: (1-Ord) [facility], HIP RT W/O CONTRAST, 09/17/2023 09/17/2023 Telephone [facility] [address] [facility] [place] [address] Nisha Ladd MD Referral (Home care) 09/16/2023 Nurse Triage [facility] [address] [place] [address] Nisha Ladd MD Weak 09/16/2023 Telephone [facility] [address] [place] [address] Nisha Ladd MD Error-please disregard (A user error has taken place: encounter opened in error, closed for administrative reasons.) 09/15/2023 Orders Only [facility] Scanner 1 scan: (1-Ord) [facility], XR PELVIS 1-2, 09/15/2023 09/07/2023 9:45 AM LOG LOADER HELPER Office Visit [facility] [address] [place] [address] Alex Garcia PsyD, LP Individual Therapy 09/06/2023 Travel 08/30/2023 Refill [facility] [address] [place] [address] Nisha Ladd MD Refill Request (Zolpidem) 08/25/2023 11:15 AM CDT Office Visit [facility] [address] [place] [address] Alex Garcia PsyD, LP Individual Therapy 08/25/2023 Travel 08/23/2023 8:30 AM CDT Phone Office Visit [facility] [address] [address] Zabrina Suggs, [facility]; [facility] Visit 08/23/2023 Telephone [facility] [address] [place] [address] Val Ray NP Referral 08/23/2023 Travel from Last 3 Months Immunizations Name Administration Dates Next Due AMB Influenza, IIV3 (Age >=3 years)(Flu Clinic Only) 08/22/2008 AMB Influenza, IIV4 PF (=>6 mos Flulaval,Fluzone Fluarix)(Flu Clinic Only) 08/02/2013 Amb Influenza, Inactivated A IIV4 (Age 65+ Years) Preserv Free 08/07/2020 COVID-19 vaccine (Anbado Video 30mcg/0.3mL) 12YO+ ED-SUCROSE PF, MDV 02/15/2022 COVID-19 vaccine (BigMachines-Bio NTech 30mcg/0.3mL) PF, MDV 01/21/2021,12/31/2020 Influenza A (H1N1), Inactiva patel (Age >=3 Years) 10/28/2009 Influenza, High-dose Inactivated 08/16/2016,06/25,07/29/2014 Influenza, High-dose Quadriv alent Inactivated 07/26/2022 Influenza, IIV3 (Age >=3 years) 08/25/20 12,08/05/2011,06/30/2010,2009,09/01/2007 Influenza, Inactivated AIIV4 (Age 65+ Years) Preserv Free 07/15/2023,07/27/2021 Influenza, Inactivated IIV3 (Age 65+ Years) Preserv Free 07/31/2019,07/17/2018,08/15/2017 Pneumococcal Poly,23-Valent (Pneumovax) 06/10/2008 Pneumococcal conj 13-Valent (Prevnar 13) 07/15/2015 Td (Age >=7 Years) 04/19/2005 Tdap 08/02/2023,06/18/2011 Zoster (Shingrix-RZV, recombinant) 10/31/2020, Family History Medical History Relation Name Comments Heart Disease Maternal Grandfather M I 60's Heart Disease Mother stent Hyperlipidemia Mother Cancer-breast No Family History Relation Name Status Comments Maternal Grandfather Mother Social History Tobacco Use Types Packs/Day Years Used Date Smoking Tobacco: Former Cigarettes 1 20 0 10/24/1971 - 10/24/1991 Smokeless Tobacco: Never Tobacco Cessation:Counseling Given: Not Answered Comments:quit many years ago Alcohol Use Standard Drinks/Week Comments No 0 (1 standard drink = 0.6 oz pur e alcohol) PHQ-2 Answer Date Recorded PHQ-2 TOTAL SCORE 2 08/16/2023 Social Connections Answer Date Recorded Frequency of Communication with Friends and Fami ly 0 06/17/2023 Alcohol Use Answer Date Recorded How often do you have a drink containing alcohol ? 0 01/18/2022 Average Number of Drinks Not on file 022 Frequency of Binge Drinking Not on file 12/23 Financial Resource Strain Answer Date R ecorded Difficulty of Paying Living Expenses 3 06/17/2023 Difficulty of Paying Living Expenses Not on file 06/17/2023 Food Insecurity Answer Date Recorded Worried About Running Out of Food in the Last Ye ar 1 06/17/2023 Transportation Needs Answer Date Record ed Lack of Transportation (Medical) 1 06/17/2023 Housing Stability Answer Date Recorded Unable to Pay for Housing in the Last Year 1 06/17/2023 Sex and Gender Information Value Date Recorded Sex Assigned at Not on file Gender Identity Not on file Sexual Orientation Not on file Obstetrics History Para Term AB IAB SAB Ectopic Multiple Livin g Live Births 1 1 1 0 0 0 0 0 1 1 Date Outcome GA Total Labor Labor//3rd Weight Sex Delivery Anes PTL Gin A1 A5 Name Cl in Term Sherice ng Last Filed Vital Signs Vital Sign Reading Time Taken Comments Blood Pressure 125/74 10/14/2023 11:45 AM LOG LOADER HELPER Pulse 64 10/14/2023 11:45 AM LOG LOADER HELPER Temperature 36.7 ??C (98.1 ??F) 07/07/2023 11:13 AM C DT Respiratory Rate 20 11/19/2019 1:45 PM LOG LOADER HELPER Oxygen Saturation 98% 10/14/2023 11:45 AM LOG LOADER HELPER Inhaled Oxygen Concentration - - Weight 65.8 kg (145 lb) 10/14/2023 11:45 AM LOG LOADER HELPER Height 162.6 cm (5' 4) 03/24/2023 11:37 AM CDT Body Mass Index 24.89 03/24/2023 11:37 AM CDT Plan of Treatment Upcoming Encounters Date Type Department Care Team (Late st Contact Info) Description 12/05/2023 1:25 PM LOG LOADER HELPER Office Visit [facility] [address] [place] [address] Nisha Ladd MD [address] [place] [address] 12/06/2023 1:45 PM LOG LOADER HELPER Office Visit [facility] [address] [place] [phone] Alex Garcia PsyD, LP [address] [place], [place] [id number] Health Maintenance Due Date Last Done Comments COVID-19 vaccine series ( season) 2023 07/26/2022, 02/15/2022, 08/04/2021, Additional history exists Medicare Wellness for age 65+ 11/29/2023, 11/23/2019, 03/08/2016, Additional history exists BMI (ht and wt on same day) for age 18+ 03/24/2024 03/24/2023, 02/24/2023, 02/10/2023, Additional history exists Depression screening for age 12+ 08/17/2024 08/17/2023, 08/16/2023, 05/17/2023, Additional history exists Tetanus booster 08/02/2033 08/02/2023, 05/25, 04/19/2005 Pneumococcal series for age 65+ Completed 5, 06/10/2008 Zoster (shingles) series for age 50+ Completed 10/31/2020, 08/11/2020 DEXA/DXA scan for age 65+ Completed 2021, 03/09/2016, 08/17/2011, Additional history exists Influenza for age 65+ Completed 07/15/2023 , 07/26/2022, 07/27/2021, Additional history exists Tdap Completed 08/02/2023, 06/18/2011 Procedures Procedure Name Priority Date/Time Associated Diagnosis Comments CREATININE Routine 10/14/2023 12:33 PM LOG LOADER HELPER BRANDON (acute kidney injury) (HC) SCAN-CT INTERPRETATION 12:00 AM LOG LOADER HELPER SCAN-RADIOLOGY REPORT 09/15/2023 12:00 AM LOG LOADER HELPER from Last 3 Months Results * (ABNORMAL) CREATININE (10/14/2023 12:33 PM LOG LOADER HELPER) eGFR 39(L) >90 mL/min/1.7 3m2 10/14/2023 7:19 PM LOG LOADER HELPER [facility] Comment:As of 2022, eG FR is calculated by the CKD-EPI creatinine equation without race adjustment. ??eGFR can be influenced by muscle mass, exercise, and diet. ??The reported eGFR is an estimation only and is only applicable if the renal function is stable. CREATININE 1.36(H) 0.50 - 0.90 mg/dL 10/14/2023 7:19 PM LOG LOADER HELPER [facility] Blood BLOOD SPECIMEN / Unknown Venipuncture / Unknown 10/14/2023 12:33 PM LOG LOADER HELPER 10/14/2023 12:35 PM LOG LOADER HELPER Nisha Ladd MD CHEMISTRY [facility] [address] [place] [id number], * SCAN-CT INTERPRETATION (09/17/2023 12:00 AM LOG LOADER HELPER) Anatomical Region Laterality Modality Other Scanner OTHER * SCAN-RADIOLOGY REPORT (09/15/2023 12:00 AM LOG LOADER HELPER) Anatomical Region Laterality Modality Other Scanner OTHER from Last 3 Months Advance Directives Documents on File Type Date Recorded Patient Android Ui Developer Expl anation Healthcare Directive 06/23/2015 10:04 AM Layla MESSER, 06/16/2015 Latest Code Status on File Code Status Date Activated Date Inactivated Comments Full Code 04/21/2007 11:34 AM 04/22/2007 12:09 AM Care Teams Livestock Feeder Relationship Specialty Start Date End Date Nisha Ladd MD [address] [place] [address] PCP - General Family Practice 02/22/19 Linette Cotter AuD Audiology 02/15/14 Shaggy Albrecht MD [address] [place] [address] Gastroenterology Internal Medicine 03/08/16 Sridhar La [address] [place] [address] Ophthalmology Ophthalmology Surgery 03/08/16
[2023-11-23 12:02] LABS: Lactate* 1.4 mmol/L (0.5-1.9)
[2023-11-23 12:04] LABS: Eosinophils Absolute Auto 0.01 K/uL (0.00-0.50); Eosinophils Percent Auto 0.1 % (0.0-7.0); Hematocrit 45.8 % (33.0-51.0); Hemoglobin* 15.3 gm/dL (12.0-16.0); Immature Granulocytes Abs Auto 0.04 K/uL (0.00-0.30); Immature Granulocytes Pct Auto 0.5 %; Lymphocytes Percent Auto 13.1 % (20-44); Mean Corpuscular HGB Conc 33 gm/dL (32-36); Mean Corpuscular Hemoglobin 31 pg (26-34); Mean Corpuscular Volume 92 fL (80-100); Monocytes Percent Auto 10.3 % (0.0-11.0); Platelet Count* 291 K/uL (140-440); RDW Coefficient of Variation % 13.3 % (11.5-15.5); Red Blood Count 4.97 m/uL (4.00-5.20); White Blood Count* 8.73 K/uL (4.50-11.00)
[2023-11-23 12:12] LABS: Slide Review Reflex No
[2023-11-23 12:22] LABS: Albumin* 4.4 g/dL (3.3-5.0)
[2023-11-23 12:23] LABS: Chloride* 106 mmol/L (96-114); Potassium* 3.7 mmol/L (3.6-5.1); Sodium* 138 mmol/L (135-149)
[2023-11-23 12:25] LABS: Anion Gap 18 mEq/L (7-15); Aspartate Amino Transferase* 65 U/L (12-35); Bilirubin Total* 0.8 mg/dL (0.1-1.5); Carbon Dioxide* 14 mmol/L (20-32); Creatinine* 2.1 mg/dL (0.5-1.5); Est. Creatinine Clearance* 18.14; Estimated Glomerular Filt Rate 23 ml/min; Total Protein* 7.7 g/dL (6.0-8.3)
[2023-11-23 12:26] LABS: Alanine Aminotransferase* 41 U/L (4-35); Alkaline Phosphatase* 101 U/L (40-150); Blood Urea Nitrogen* 66 mg/dL (7-30); Calcium* 9.2 mg/dL (8.4-10.6); Glucose* 73 mg/dL (60-115)
[2023-11-23] MEDS: ONDANSETRON 2 MG/ML inj 4 MG IVP (13:00)
[2023-11-23] MEDS: METOCLOPRAMIDE HCL 5 MG/ML INJ 10 MG IVP (13:01)
[2023-11-23] MEDS: LACTATED RINGERS 1000 ML IV (13:01)
--- NOTE | 2023-11-23 13:39 | ED.NURSE ---
Meal ordered for patient.
[2023-11-23 14:50] LABS: Chloride* 108 mmol/L (96-114); Sodium* 138 mmol/L (135-149)
[2023-11-23 14:51] LABS: Potassium* 3.2 mmol/L (3.6-5.1)
[2023-11-23 14:53] LABS: Anion Gap 15 mEq/L (7-15); Blood Urea Nitrogen* 57 mg/dL (7-30); Carbon Dioxide* 15 mmol/L (20-32); Creatinine* 1.7 mg/dL (0.5-1.5); Est. Creatinine Clearance* 22.41; Estimated Glomerular Filt Rate 30 ml/min
[2023-11-23 14:54] LABS: Calcium* 8.5 mg/dL (8.4-10.6); Glucose* 69 mg/dL (60-115)
== END 2023-11-23 16:05 | disposition home or self-care (01) ==
PROVIDERS: Emergency Provider Emergency Medicine; PCP Family Medicine
DX: K52.9 Noninfective gastroenteritis and colitis, unspecified (principal)
CPT/HCPCS: 36415; 80048; 80053; 83605; 85025; 93005; 96374; 96375; 99283; A9270; J2405; J2765; J7030; J7120

== ENCOUNTER 2023-11-25 14:03 | Emergency (ER) | payer MEDICARE, OTHER, SELFPAY ==
[2023-11-25] VITALS (13 sets, daily range): BP systolic 110–118; BP diastolic 50–67; PULSE 69–93; RESP 18; TEMP 36.4; O2SAT 96–99; BMI 23.9
--- NOTE | 2023-11-25 14:12 | ED_ITS ---
HPI - General Adult General Time Seen by Provider: 14:12 Date Seen: 11/25/23 Chief complaint: Dizziness/Vertigo Stated complaint: Low BP, kidney issues Time Seen by Provider: 11/25/23 14:07 Source: patient, RN notes reviewed and old records reviewed Mode of arrival: ambulatory Limitations: no limitations History of Present Illness HPI narrative: This 83-year-old female is referred from clinic at [facility] for low blood pressure of 86/60, feeling weak and dizzy. Patient was seen on November 23 here in our ER, had an acute kidney injury, dehydration from gastrointestinal issues/diarrhea. She states she is no longer throwing up, has been able to drink some fluids but really has no appetite, cannot force herself to eat. She still having some nausea. She was having diarrhea, this has resolved. She has no pain anywhere. No abdominal pain, no chest pain, no shortness of breath or difficulty breathing. She has had no fevers. She is on lisinopril and hydrochlorothiazide, has been still taking those. She has had no fevers or chills. She was referred from the clinic for further evaluation due to her hypotension and her symptoms. Clinician reported that she still really is not eating, does not feel that she has been taking in enough fluids. Related Data Home Medications Medication Instructions Recorded Confirmed alendronate 70 mg tablet 70 mg PO QWEEK 09/27/22 09/17/23 lisinopril 10 mg tablet 10 mg PO HS 09/27/22 09/17/23 simvastatin 40 mg tablet 40 mg PO HS 09/27/22 09/17/23 bupropion HCl 300 mg 24 hr tablet, 300 mg PO DAILY 09/28/22 09/17/23 extended release calcium carbonate 200 mg calcium 400 mg PO DAILY 09/28/22 09/17/23 (500 mg) chewable tablet (Antacid (calcium carbonate)) cyanocobalamin (vitamin B-12) 1,000 mcg PO DAILY 09/28/22 09/17/23 1,000 mcg capsule hydrochlorothiazide 25 mg tablet 25 mg PO DAILY 09/28/22 09/17/23 zinc acetate 50 mg (zinc) capsule 50 mg PO HS 09/28/22 09/17/23 omeprazole 20 mg capsule,delayed 20 mg PO DAILY 09/15/23 09/17/23 release buspirone 15 mg tablet 15 mg PO TID 09/17/23 09/17/23 mirtazapine 30 mg tablet 30 mg PO HS 09/17/23 09/17/23 nystatin 100,000 unit/gram topical 1 applic topical PRN 09/17/23 09/17/23 powder ([facility]) prochlorperazine maleate 10 mg 10 mg PO TID PRN 09/17/23 09/17/23 tablet Previous Rx's Medication Instructions Recorded acetaminophen 325 mg tablet 650 mg (2 x 325 mg) PO Q6H #120 09/20/23 tabs lidocaine 5 % topical patch 1 patch transdermal DAILY #15 ea 09/20/23 oxycodone 5 mg tablet 2.5 mg (1/2 x 5 mg) PO Q4H PRN #12 09/20/23 tabs loperamide 2 mg capsule 2 mg PO Q6H PRN loose stool #10 11/23/23 (Anti-Diarrheal (loperamide)) caps ondansetron 4 mg disintegrating 4 mg PO Q8H PRN nausea and 11/23/23 tablet vomiting #10 tabs Allergies Allergy/AdvReac Type Severity Reaction Status Date / Time No Known Drug Allergies Allergy Verified 09/15/23 20:48 Review of Systems Status of ROS: Reports: 6 or more systems reviewed and unremarkable except as noted in History and below [facility] Medical History Fall ?W19.XXXA - Unspecified fall, initial encounter (ICD-10) Discharge planning issues ?Z02.9 - Encounter for administrative examinations, unspecified (ICD-10) Generalized anxiety disorder ?F41.1 - Generalized anxiety disorder (ICD-10) Pre-diabetes ?R73.03 - Prediabetes (ICD-10) Major depression, recurrent ?F33.9 - Major depressive disorder, recurrent, unspecified (ICD-10) Hypercholesterolemia ?E78.00 - Pure hypercholesterolemia, unspecified (ICD-10) Other nonspecific abnormal cardiovascular system function study ?R94.39 - Abnormal result of other cardiovascular function study (ICD-10) Colon polyp ?K63.5 - Polyp of colon (ICD-10) RAFAELA (obstructive sleep apnea) ?G47.33 - Obstructive sleep apnea (adult) (pediatric) (ICD-10) CAD (coronary artery disease) ?I25.10 - Atherosclerotic heart disease of [place] coronary artery without angina pectoris (ICD-10) PLMD (periodic limb movement disorder) ?G47.61 - Periodic limb movement disorder (ICD-10) Pyoderma gangrenosa ?L88 - Pyoderma gangrenosum (ICD-10) Compression fracture of twelfth thoracic vertebra ?S22.080A - Wedge compression fracture of T11-T12 vertebra, initial encounter for closed fracture (ICD-10) Osteopenia ?M85.80 - Other specified disorders of bone density and structure, unspecified site (ICD-10) Hypertension ?I10 - Essential (primary) hypertension (ICD-10) IBS (irritable bowel syndrome) ?K58.9 - Irritable bowel syndrome without diarrhea (ICD-10) Esophageal reflux ?K21.9 - Gastro-esophageal reflux disease without esophagitis (ICD-10) Surgical History (Updated 09/17/23 @ 16:09 by Tram Juárez MD) Postsurgical percutaneous transluminal coronary angioplasty (PTCA) status ?Z98.61 - Coronary angioplasty status (ICD-10) History of tonsillectomy and adenoidectomy ?Z90.89 - Acquired absence of other organs (ICD-10) History of esophagogastroduodenoscopy (EGD) ?Z98.890 - Other specified postprocedural states (ICD-10) History of colonoscopy ?Z98.890 - Other specified postprocedural states (ICD-10) History of laparoscopic cholecystectomy (~1998) ?Z90.49 - Acquired absence of other specified parts of digestive tract (ICD- 10) History of lumpectomy of left breast ?Z98.890 - Other specified postprocedural states (ICD-10) Family History Mother Heart disease High cholesterol Maternal Grandfather Heart disease Social History Narrative: Lives with (who has chronic leukemia, chronic lymphedema and recurrent gout, impaired ambulation). Smoked 20 pack years, quit in 1991, no history of smokeless tobacco. Denies alcohol use. Denies recreational drug use. What is your current living situation?: I presently have a place to live Problems where you live: no known problems Problems where you live details: NA In the past 12 months, utilities in danger of being shut off: no In past 12 months, lack of transportation kept you from medical appts, meetings, work, or getting things needed for daily living: no In the past 12 mos, have been you worried that your food would run out before you had money to buy more?: never true In the past 12 mos, the food you bought just didn't last and you didn't have money to buy more?: never true Highest level of school completed/degree received: high school graduate Smoking Status: Former smoker Do you use any of these nicotine containing products: None Second hand tobacco smoke exposure: No How often do you have a drink containing alcohol: never AUDIT-C Alcohol total score: 0 Non-prescribed substance use: denies use Caffeine: No How often does anyone, including family, friends and others, physically hurt you : never How often does anyone, including family, friends and others, insult or talk down to you: never How often does anyone, including family, friends and others, threaten you with harm: never How often does anyone, including family, friends and others, scream or curse at you: never service: No Exam Const: Vital Signs, click to edit/add: Vital Signs - 24 hr 11/25/23 14:07 11/25/23 14:40 11/25/23 15:17 Temperature 97.6 F Pulse Rate 70 Pulse Rate [Right Pulse Oximeter] 93 Respiratory Rate 18 Blood Pressure Blood Pressure [Ri ght Upper Arm] 116/67 Pulse Oximetry 97 97 97 Oxygen Delivery Me thod Room Air 11/25/23 15:30 11/25/23 15:31 Temperature Pulse Rate 70 72 Pulse Rate [Right Pulse Oximeter] Respiratory Rate Blood Pressure 118/50 L Blood Pressure [Ri ght Upper Arm] Pulse Oximetry 98 97 Oxygen Delivery Me thod This 83-year-old female is alert, interactive, no apparent distress, sitting up on the edge of the bed, well kept. Sclera clear, conjugate gaze, symmetrical facial function, speaking complete sentences. Neck is supple, no masses. She does have kyphosis but lungs are clear, good air entry, no wheezing or crackles. CV regular rate and rhythm, no significant murmur noted normal S1-S2, no S3 or S4. Abdomen is soft, nontender, nondistended, no rebound or guarding. Bowel sounds are faint. She has no lower extremity edema. Skin visualized without rash. She was ambulatory into the ED of her own accord. Documenting provider has reviewed patient's vital signs: yes Course Course ED Course: Patient's blood pressure is better here 116/67 but was certainly registered is low at 86/60 in clinic. None the less, she is feeling weak and dizzy. Will es tablish an IV, recheck labs and give her 1000 mL of normal saline over 2 hours. We will see how she does clinically, see where her labs are at. Do not feel she needs any imaging at this time but will consider changes this decision based on labs. Abdomen and certainly benign, she has had no further diarrhea or vomiting, just feels some nausea still. Will also check a triple swab to see ensure that she is not coming down with 1 of these viral pathogens. This certainly could just be ongoing dehydration from her recent gastrointestinal illness which was presumably viral. This could be confounded by the fact she was still taking blood pressure medicines. Need to see where her electrolytes and kidney function fall today. Reevaluation(s) Time of Reevaluation #1: 16:37 Reevaluation #1: Alejandra is feeling better. We did review labs. Mild bump in her liver functions. She does have labs scheduled for next week. Her sister who helps with her medicines was talked to via phone. Her daughter and another relative were here as well. We all reviewed everything together. Josselyn her sister's going to see if she can get liver enzymes added on to her labs next week. Hugo avitia has a long- term history of nausea, has seen multiple GI specialist. They were worried about weight loss in were thinking she was going to get some IV nutrition. Reviewed that we do not do that, she would not get emergent TPN. We just do fluids. If they continue to observe ongoing weight loss and she is having difficulty with oral intake, down the road such things such as feeding tube may need to be considered if it becomes that problematic. We reviewed that we certainly are not there yet. She may just need to try to force herself to eat small frequent meals until she is back to baseline. It sounds as if her baseline is not that great anyways. They were worried that she has lost 9 lb during this illness. Her labs would suggest that her hydration status is actually improving. We did discuss having her stop the hydrochlorothiazide given her lower blood pressures and the mild hypokalemia observed. When she follows up with her primary care provider, appointment scheduled for a week from Tuesday, they can see if this actually needs to be reinstated or can continue to be held. Her medicines are in a locked box which rotate sin only opens for the appropriate time. Her hydrochlorothiazide is a small pill that is cut in half in the morning, she knows which pill this is and will be able to take it out. We will leave her on her current lisinopril dose at this point, may need to be cut in half if her blood pressures continue to run low. She feels the blood pressures we are seen here are more in line with what she usually is. She is feeling better. Her gallbladder has been removed, do not think we need to any further testing or imaging. Vital Signs Vital signs: Initial Vital Signs Temperature 97.6 F 11/25/23 14:07 Temperature Source Temporal Artery Scan 11/25/23 14:07 Pulse Rate 93 11/25/23 14:07 Respiratory Rate 18 11/25/23 14:07 Blood Pressure 116/67 11/25/23 14:07 Blood Pressure Mean 83 11/25/23 14:07 Blood Pressure Position Sitting 11/25/23 14:07 Pulse Oximetry 97 11/25/23 14:07 Oxygen Delivery Method Room Air 11/25/23 14:07 Vital Signs Temperature 97.6 F 11/25/23 14:07 Pulse Rate 93 11/25/23 14:07 Respiratory Rate 18 11/25/23 14:07 Blood Pressure 116/67 11/25/23 14:07 Pulse Oximetry 97 11/25/23 14:07 Oxygen Delivery Method Room Air 11/25/23 14:07 Temperature 97.6 F 11/25/23 14:07 Pulse Rate 72 11/25/23 15:31 Respiratory Rate 18 11/25/23 14:07 Blood Pressure 118/50 L 11/25/23 15:31 Pulse Oximetry 97 11/25/23 15:31 Oxygen Delivery Method Room Air 11/25/23 14:07 Medications Administered Medications: Discontinued Medications Generic Name Dose Route Start Last Admin Trade Name Freq PRN Reason Stop Dose Admin Sodium Chloride 1,000 mls @ 500 mls/hr 11/25/23 14:21 11/25/23 15:00 0.9 % Sodium Chloride 1000 Ml IV 11/25/23 16:20 500 mls/hr .Q2H SHAUNNA Administration Medical Decision Making Lab Data Lab results reviewed: Yes I reviewed the patient's lab results Labs: Lab Results 11/25/23 11/25/23 Range/Units 14:54 16:00 WBC 4.94 (4.50-11.00) K/uL RBC 4.55 (4.00-5.20) m/uL Hgb 13.9 (12.0-16.0) gm/dL Hct 40.7 (33.0-51.0) % MCV 90 (80-100) fL MCH 31 (26-34) pg MCHC 34 (32-36) gm/dL RDW Coeff of [place] 12.7 (11.5-15.5) % Plt Count 211 (140-440) K/uL Neut % (Auto) 61.2 (42.0-72.0) % Lymph % (Auto) 25.7 (20-44) % Travis % (Auto) 10.7 (0.0-11.0) % Eos % (Auto) 0.8 (0.0-7.0) % Baso % (Auto) 0.0 (0.0-3.0) % Neut # (Auto) 3.02 (1.7-7.0) K/uL Lymph # (Auto) 1.27 (0.90-2.90) K/uL Travis # (Auto) 0.50 (0.00-0.90) K/UL Eos # (Auto) 0.04 (0.00-0.50) K/uL Baso # (Auto) 0.00 (0.00-0.30) K/uL Abs Immat Gran (auto) 0.08 (0.00-0.30) K/uL Imm/Tot Granulo (auto) 1.6 % VBG pH 7.317 L (7.32-7.43) VBG pCO2 37 L (40-50) mmHG VBG pO2 30.0 (25-47) mmHG VBG HCO3 19 L (21-28) mmol/L Sodium 134 L (135-149) mmol/L Potassium 3.3 L (3.6-5.1) mmol/L Chloride 106 (96-114) mmol/L Carbon Dioxide 14 L (20-32) mmol/L Anion Gap 14 (7-15) mEq/L BUN 31 H (7-30) mg/dL Creatinine 1.5 (0.5-1.5) mg/dL Estimated Creat Clear 25.40 Estimated GFR 35 ml/min Glucose 111 (60-115) mg/dL Lactate 1.4 (0.5-1.9) mmol/L Calcium 8.8 (8.4-10.6) mg/dL Magnesium 1.7 (1.5-2.6) mg/dL Total Bilirubin 0.6 (0.1-1.5) mg/dL AST 78 H (12-35) U/L ALT 65 H (4-35) U/L Alkaline Phosphatase 221 H (40-150) U/L Troponin I 0.02 (0.01-0.04) ng/mL Total Protein 7.3 (6.0-8.3) g/dL Albumin 4.1 (3.3-5.0) g/dL Urine Color Yellow (Yellow) Urine Appearance Clear (Clear) Urine pH 6.0 (5.0-8.5) Ur Specific [place] 1.010 (1.000-1.030) Urine Protein Negative (Negative) Urine Glucose (UA) Negative (Negative) Urine Ketones Negative (Negative) Urine Blood Trace-intact A (Negative) Urine Nitrite Negative (Negative) Urine Bilirubin Negative (Negative) Urine Urobilinogen 0.2 (0.2-1.0) Ur Leukocyte Esterase 1+ A (Negative) Urine RBC 2-5 A (0-2) Urine WBC 5-10 A (0-5) Ur Squamous Epith Cells Few (None-Few) Urine Bacteria Few A (None) SARS-CoV-2 (PCR) Negative SARS-CoV-2 (Negative) Influenza Type A (PCR) Negative PCR FLU A (Negative) Influenza Type B (PCR) Negative PCR FLU B (Negative) RSV (PCR) Negative PCR RSV (Negative) Critical Care Time Critical Care Time Critical Care Time: No Discharge Plan Discharge Clinical Impression: Acute dehydration, Gastroenteritis and colitis, viral Patient Disposition: Home, Self-Care Condition: Stable Instructions: Dehydration (ED), Gastroenteritis (ED) Additional Instructions: You need to drink plenty of fluids, try to increase solids. You may need to eat smaller bites more frequently, eat food that is palatable to you at this time. IA do recommend stopping the hydrochlorothiazide, do not restart it until re- evaluated by your doctor and clinic. Your liver panel should be rechecked next week with her labs. There is of very mild elevation in the AST, ALT and alkaline phosphatase which certainly can be from viral gastroenteritis. Over the weekend if you are worsening with increasing nausea, return of vomiting or diarrhea, are unable to take in oral fluids, return for further evaluation. Activity Level: Activity as Tolerated Prescriptions: No Action lisinopril 10 mg tablet 10 mg PO HS simvastatin 40 mg tablet 40 mg PO HS alendronate 70 mg tablet 70 mg PO QWEEK Patient Comments: ON SUNDAYS bupropion HCl 300 mg tablet extended release 24 hr 300 mg PO DAILY calcium carbonate [Antacid (calcium carbonate)] 200 mg calcium (500 mg) tablet,chewable 400 mg PO DAILY cyanocobalamin (vitamin B-12) 1,000 mcg capsule 1,000 mcg PO DAILY hydrochlorothiazide 25 mg tablet 25 mg PO DAILY zinc acetate 50 mg (zinc) capsule 50 mg PO HS omeprazole 20 mg capsule,delayed release(DR/EC) 20 mg PO DAILY buspirone 15 mg tablet 15 mg PO TID Patient Comments: TAKES 15MG QAM AND 30MG QHS mirtazapine 30 mg tablet 30 mg PO HS nystatin [Nyamyc] 100,000 unit/gram powder 1 applic topical PRN Patient Comments: STOMACH SORES prochlorperazine maleate 10 mg tablet 10 mg PO TID PRN Patient Comments: TAKES 2-3 TIMES DAILY PRN acetaminophen 325 mg Tablet 650 mg PO Q6H Qty: 120 0RF lidocaine 5 % Adhesive Patch,Medicated 1 patch transdermal DAILY Qty: 15 0RF Rx Instructions: OTC oxycodone 5 mg Tablet 2.5 mg PO Q4H PRNQty: 12 0RF loperamide [Anti-Diarrheal (loperamide)] 2 mg capsule 2 mg PO Q6H PRN (Reason: loose stool) Qty: 10 0RF ondansetron 4 mg tablet,disintegrating 4 mg PO Q8H PRN (Reason: nausea and vomiting) Qty: 10 0RF Follow Up/Referrals: Wilberto,Nisha N, MD [Primary Care Provider] - Stand Alone Forms: [employer] Info Instructions
--- OUTSIDE RECORDS SUMMARY | 2023-11-25 14:25 | XMS_ITS | Encounter Summary ---
Author Name Unknown Organization [facility] Address [address] [place] [id number] Care Team Providers Care Casino Banker Name Role Phone Nisha Ladd Primary Care Provider Encounter Details Date Type Department Care Team (Latest Contact Info) Description 3 Medical Correspondence [facility] [address] [place] [phone] Outside, Provider ESOPHAGOGASTRODUODENOSCOPY ORDER MNGI Social [...] on filedocumented in this encounter Care Teams Casino Banker Relationship Specialty Start Date End Date Nisha Ladd [address] [place] [address] PCP - General Family Medicine 11/22/22 documented as of this encounter
--- OUTSIDE RECORDS SUMMARY | 2023-11-25 14:25 | XMS_ITS | Encounter Summary ---
Author Name Unknown Organization [facility] Address [address] [place] [address]. [place] [address] Care Team Providers Care Field Automobile Adjuster Name Role Phone Nisha Ladd Primary Care Provider [phone] Encounter Details Date Type Department Care Team (Late st Contact Info) Description 11/15/2022 Medical Correspondence [facility] [address] [place] [phone] Outside, Provider Social History Tobacco Use [...] Coronavirus/COVID-19? No / Unsure 11/22/2022 8:18 AM SIGN MAINTENANCE documented as of this encounter Plan of Treatment Not on file documented as of this encounter Visit Diagnoses Not on filedocumented in this encounter Care Teams Field Automobile Adjuster Relationship Specialty Start Date End Date Nisha Ladd [address] [place] [address] PCP - General Family Medicine 11/22/22 documented as of this encounter
--- OUTSIDE RECORDS SUMMARY | 2023-11-25 14:25 | XMS_ITS | Clinical Summary ---
Author Name Unknown Organization [facility] Address [place], [place] [address] Care Team Providers Care Leases And Land Supervisor Name Role Phone HasmukhstuLinette wagner Unavailable Shaggy [...] once daily. 30 Tablet 1 4 Active loperamide (IMODIUM) 2 mg capsule Take by mouth. 0 4 Active ondansetron (ZOFRAN ODT) 4 mg disintegrating tablet 0 4 Active buPROPion (WELLBUTRIN XL) 300 mg [...] Encounters Date Type Department Care Team Description 11/25/2023 1:00 PM MIXED SIGNAL DESIGN ENGINEER Office Visit [facility] [address] [place] [address] Maya William MD ER Follow up (Diarrhea DOD 11/24/23 [facility]) 11/25/2023 12:45 PM MIXED SIGNAL DESIGN ENGINEER Orders Only [facility] [place] [address] Lab, [place] [facility] 11/25/2023 Travel 11/24/2023 Orders Only [facility] Scanner 1 scan: (1-Ord) INCOMING RECORDS-EKG, [facility], 11/24/2023 11/24/2023 Orders Only [facility] Scanner 1 scan: (1-Ord) INCOMING RECORDS-LABS, [facility], 11/24/2023 11/24/2023 Orders Only [facility] Staff, Other Clinical 1 scan: (1-Ord) [facility] 11/24/2023 Nurse Triage [facility] [address] [place] [address] Nisha Ladd MD Appointment 11/24/2023 Telephone [facility] [address] [place] [address] Nisha Ladd MD Lab (Requesting orders/) 11/23/2023 Orders Only [facility] Staff, Other Clinical 1 scan: (1-Ord) 11/23/2023 11/23/2023 Nurse Triage [facility] [address] [place] [address] Nisha Ladd MD Diarrhea; Vomiting 11/17/2023 1:00 PM MIXED SIGNAL DESIGN ENGINEER Office Visit [facility] [address] [place] [address] Malecha, Val Cindy, JEWELER APPRENTICE Medication Management; Follow Up 11/17/2023 Travel 11/09/2023 9:00 AM MIXED SIGNAL DESIGN ENGINEER Office Visit [facility] [address] [place] [address] Alex Garcia PsyD, LP Family Therapy 11/09/2023 Travel 10/14/2023 11:45 AM MIXED SIGNAL DESIGN ENGINEER Office Visit [facility] [address] [place] [address] Nisha Ladd MD Hospital F/U (fall 09/19, pain in back end while moving ) 10/14/2023 Travel 10/11/2023 1:00 PM MIXED SIGNAL DESIGN ENGINEER Office Visit [facility] [address] [place] [address] Alex Garcia PsyD, LP Individual Therapy 10/11/2023 Travel 10/06/2023 Refill [facility] [address] [place] [address] Nisha Ladd MD Refill Request (zolpidem (AMBIEN) 5 mg tablet/) 09/17/2023 Orders Only [facility] Scanner 1 scan: (1-Ord) [facility], HIP RT W/O CONTRAST, 09/17/2023 09/17/2023 Telephone [facility] [address] [place] [address] Nisha Ladd MD Referral (Home care) 09/16/2023 Nurse Triage [facility] [address] [place] [address] Nisha Ladd MD Weak 09/16/2023 Telephone [facility] [address] [place] [address] Nisha Ladd MD Error-please disregard (A user error has taken place: encounter opened in error, closed for administrative reasons.) 09/15/2023 Orders Only [facility] Scanner 1 scan: (1-Ord) [facility], XR PELVIS 1-2, 09/15/2023 09/07/2023 9:45 AM MIXED SIGNAL DESIGN ENGINEER Office Visit [facility] [address] [facility] [address] Alex Garcia PsyD, LP Individual Therapy 09/06/2023 Travel 08/30/2023 Refill [facility] [address] [facility] [address] Nisha Ladd MD Refill Request (Zolpidem) 08/25/2023 11:15 AM CDT Office Visit [facility] [address] [place] [address] Alex Garcia PsyD, LP Individual Therapy 08/25/2023 Travel from Last 3 Months Immunizations Name Administration Dates Next Due AMB Influenza, IIV3 (Age >=3 years)(Flu Clinic Only) 08/22/2008 AMB Influenza, IIV4 PF (=>6 mos Flulaval,Fluzone Fluarix)(Flu Clinic Only) 08/02/2013 Amb Influenza, Inactivated A IIV4 (Age 65+ Years) Preserv Free 08/07/2020 COVID-19 vaccine ([employer]-Bio NTech 30mcg/0.3mL) 12YO+ ED-SUCROSE PF, MDV 02/15/2022 COVID-19 vaccine (Pfizer-Bio NTech 30mcg/0.3mL) PF, MDV 01/21/2021,12/31/2020 Influenza A [...] 10/24/1991 Smokeless Tobacco: Never Tobacco Cessation:Counseling Given: Yes Comments:quit many years ago Alcohol Use Standard [...] 1 1 Date Outcome GA Total Labor Labor/2nd/3rd Weight Sex Delivery Anes PTL Gin A1 A5 Name Cl in Term Sherice ng Last Filed Vital Signs Vital Sign Reading Time Taken Comments Blood Pressure 86/60 11/25/2023 1:18 PM MIXED SIGNAL DESIGN ENGINEER Pulse 89 11/25/2023 1:18 PM MIXED SIGNAL DESIGN ENGINEER Temperature 36.4 ??C (97.5 ??F) 11/25/2023 1:18 PM CS T Respiratory Rate 20 11/19/2019 1:45 PM MIXED SIGNAL DESIGN ENGINEER Oxygen Saturation 95% 11/25/2023 1:18 PM MIXED SIGNAL DESIGN ENGINEER Inhaled Oxygen Concentration - - Weight 61.7 kg (136 lb) 11/25/2023 1:18 PM MIXED SIGNAL DESIGN ENGINEER Height 162.6 cm (5' 4) 03/24/2023 11:37 AM CDT Body Mass Index 23.34 03/24/2023 11:37 AM CDT Plan of Treatment Upcoming Encounters Date Type Department Care Team (Late st Contact Info) Description 12/01/2023 2:45 PM MIXED SIGNAL DESIGN ENGINEER Orders Only [facility] [address] [place] [address] [place], [place] 12/05/2023 1:25 PM MIXED SIGNAL DESIGN ENGINEER Office Visit [facility] [address] [place] [address] Nisha Ladd MD [address] [place] [address] 12/06/2023 1:45 PM MIXED SIGNAL DESIGN ENGINEER Office Visit [facility] [address] [place] [phone] Alex Garcia PsyD, LP [address] [place] [address] 01/17/2024 3:00 PM CDT Office Visit [facility] [address] [place] [address] Val Ray NP [address] [place] [address] Health Maintenance Due Date Last Done Comments COVID-19 vaccine series (2022-24 season) 2023 07/26/2022, 02/15/2022, 08/04/2021, Additional history exists Medicare Wellness for age 65+ 11/30/2023, 11/23/2019, 03/08/2016, Additional history exists BMI (ht [...] Procedure Name Priority Date/Time Associated Diagnosis Comments RED CELL MORPHOLOGY Routine 11/25/2023 1 :12 PM MIXED SIGNAL DESIGN ENGINEER Hospital discharge follow-up H/O viral illness PLATELET ESTIMATE Routine 11/25/2023 1:1 2 PM MIXED SIGNAL DESIGN ENGINEER Hospital discharge follow-up H/O viral illness MANUAL DIFFERENTIAL Routine 11/25/2023 1 :12 PM MIXED SIGNAL DESIGN ENGINEER Hospital discharge follow-up H/O viral illness CBC WITH AUTO DIFFERENTIAL Routine 11/25/2023 1:12 PM MIXED SIGNAL DESIGN ENGINEER Hospital discharge follow-up H/O viral illness CBC WITH AUTO DIFFERENTIAL Routine 11/25/2023 1:12 PM MIXED SIGNAL DESIGN ENGINEER Hospital discharge follow-up H/O viral illness SCAN CORRESP-EKG RESULTS 11/24/2023 12:43 PM MIXED SIGNAL DESIGN ENGINEER SCAN CORRESP-LABORATORY RESULTS 11/24/2023 12:43 PM MIXED SIGNAL DESIGN ENGINEER SCAN CORRESP-EKG RESULTS 11/24/2023 12:00 AM MIXED SIGNAL DESIGN ENGINEER SCAN CORRESP-LABORATORY RESULTS 11/24/2023 12:00 AM MIXED SIGNAL DESIGN ENGINEER CREATININE Routine 10/14/2023 12:33 PM MIXED SIGNAL DESIGN ENGINEER BRANDON (acute kidney injury) (HC) SCAN-CT INTERPRETATION 12:00 AM MIXED SIGNAL DESIGN ENGINEER SCAN-RADIOLOGY REPORT 09/15/2023 12:00 AM MIXED SIGNAL DESIGN ENGINEER from Last 3 Months Results * CBC WITH AUTO DIFFERENTIAL (11/25/2023 1:12 PM MIXED SIGNAL DESIGN ENGINEER) Pathologist [facility] WHITE BLOOD COUNT 6.8 4.5 - 11.0 thou/cu mm 11/25/2023 1:43 PM MIXED SIGNAL DESIGN ENGINEER [facility] RED BLOOD COUNT 4.68 4.00 - 5.20 mil/cu mm 11/25/2023 1:43 PM MIXED SIGNAL DESIGN ENGINEER [facility] HEMOGLOBIN 14.7 12.0 - 16.0 g/dL 11/25/2023 1:43 PM MIXED SIGNAL DESIGN ENGINEER [facility] HEMATOCRIT 41.8 33.0 - 51.0 % 11/25/2023 1:43 PM MIXED SIGNAL DESIGN ENGINEER [facility] MCV 89 80 - 100 fL 11/25/2023 1:43 PM MIXED SIGNAL DESIGN ENGINEER [facility] MCH 31.4 26.0 - 34.0 pg 11/25/2023 1:43 PM MIXED SIGNAL DESIGN ENGINEER [facility] MCHC 35.2 32.0 - 36.0 g/dL 11/25/2023 1:43 PM MIXED SIGNAL DESIGN ENGINEER [facility] RDW 13.6 11.5 - 15.5 % 11/25/2023 1:43 PM MIXED SIGNAL DESIGN ENGINEER [facility] PLATELET COUNT 250 140 - 440 thou/cu mm 11/25/2023 1:43 PM MIXED SIGNAL DESIGN ENGINEER [facility] MPV 10.4 6.5 - 11.0 fL 11/25/2023 1:43 PM [facility] Blood BLOOD SPECIMEN / Unknown Venipuncture / Unknown 11/25/2023 1:12 PM MIXED SIGNAL DESIGN ENGINEER 11/25/2023 1:13 PM MIXED SIGNAL DESIGN ENGINEER Maya William MD HEMATOLOGY Performing Organization Address City/[facility]/ZIP Co de Phone Number [facility] [address] [place] [address], * RED CELL MORPHOLOGY (11/25/2023 1:12 PM MIXED SIGNAL DESIGN ENGINEER) RBC COMMENT RBC morphology appears normal RBC morphology appears normal, RBC morphology within normal limits for newborns. 11/25/2023 1:42 PM MIXED SIGNAL DESIGN ENGINEER [facility] Blood BLOOD SPECIMEN / Unknown Venipuncture / Unknown 11/25/2023 1:12 PM MIXED SIGNAL DESIGN ENGINEER 11/25/2023 1:13 PM MIXED SIGNAL DESIGN ENGINEER Maya William MD HEMATOLOGY Performing Organization Address City/[facility]/ZIP Co de Phone Number [facility] [address] [place] [address], * PLATELET ESTIMATE (11/25/2023 1:12 PM MIXED SIGNAL DESIGN ENGINEER) Pathologist [facility] PLATELET ESTIMATE Adequate Adequate, No estimate 11/25/2023 1:42 PM MIXED SIGNAL DESIGN ENGINEER [facility] Blood BLOOD SPECIMEN / Unknown Venipuncture / Unknown 11/25/2023 1:12 PM MIXED SIGNAL DESIGN ENGINEER 11/25/2023 1:13 PM MIXED SIGNAL DESIGN ENGINEER Maya William MD HEMATOLOGY Performing Organization Address City/[facility]/ZIP Co de Phone Number [facility] [address] [place] [address], * MANUAL DIFFERENTIAL (11/25/2023 1:12 PM MIXED SIGNAL DESIGN ENGINEER) Pathologist [facility] % NEUTROPHILS 59.0 % 11/25/2023 1:42 PM MIXED SIGNAL DESIGN ENGINEER [facility] % LYMPHOCYTES 29.0 % 11/25/2023 1:42 PM MIXED SIGNAL DESIGN ENGINEER [facility] % MONOCYTES 11.0 % 11/25/2023 1:42 PM MIXED SIGNAL DESIGN ENGINEER [facility] % EOSINOPHILS 1.0 % 11/25/2023 1:42 PM MIXED SIGNAL DESIGN ENGINEER [facility] % BASOPHILS 0.0 % 11/25/2023 1:42 PM MIXED SIGNAL DESIGN ENGINEER [facility] NEUTROPHILS ABSOLUTE 4.0 1.7 - 7.0 thou/cu mm 11/25/2023 1:42 PM MIXED SIGNAL DESIGN ENGINEER [facility] LYMPHOCYTES ABSOLUTE 2.0 0.9 - 2.9 thou/cu mm 11/25/2023 1:42 PM MIXED SIGNAL DESIGN ENGINEER [facility] MONOCYTES ABSOLUTE 0.7 <0.9 thou/cu mm 11/25/2023 1:42 PM MIXED SIGNAL DESIGN ENGINEER [facility] EOSINOPHILS ABSOLUTE 0.1 <0.5 thou/cu mm 11/25/2023 1:42 PM MIXED SIGNAL DESIGN ENGINEER [facility] BASOPHILS ABSOLUTE 0.0 <0.3 thou/cu mm 11/25/2023 1:42 PM MIXED SIGNAL DESIGN ENGINEER [facility] Blood BLOOD SPECIMEN / Unknown Venipuncture / Unknown 11/25/2023 1:12 PM MIXED SIGNAL DESIGN ENGINEER 11/25/2023 1:13 PM MIXED SIGNAL DESIGN ENGINEER Maya William MD HEMATOLOGY [facility] [address] [place] [address], * SCAN CORRESP-LABORATORY RESULTS (11/24/2023 12:43 PM MIXED SIGNAL DESIGN ENGINEER) Only the most recent of2 resultswithin the time period is included. Narrative 11/24/2023 12:43 PM MIXED SIGNAL DESIGN ENGINEER Ordered by an unspecified provider. Other Clinical Staff OTHER * SCAN CORRESP-EKG RESULTS (11/24/2023 12:43 PM MIXED SIGNAL DESIGN ENGINEER) Only the most recent of2 resultswithin the time period is included. Narrative 11/24/2023 12:43 PM MIXED SIGNAL DESIGN ENGINEER Ordered by an unspecified provider. Other Clinical Staff OTHER * (ABNORMAL) CREATININE (10/14/2023 12:33 PM MIXED SIGNAL DESIGN ENGINEER) eGFR 39(L) >90 mL/min/1.7 3m2 10/14/2023 7:19 PM MIXED SIGNAL DESIGN ENGINEER [facility] Comment:As of 2022, eG FR is calculated by the CKD-EPI creatinine equation without race adjustment. ??eGFR can be influenced by muscle mass, exercise, and diet. ??The reported eGFR is an estimation only and is only applicable if the renal function is stable. CREATININE 1.36(H) 0.50 - 0.90 mg/dL 10/14/2023 7:19 PM MIXED SIGNAL DESIGN ENGINEER [facility] [employer] [facility] Blood BLOOD SPECIMEN / Unknown Venipuncture / Unknown 10/14/2023 12:33 PM MIXED SIGNAL DESIGN ENGINEER 10/14/2023 12:35 PM MIXED SIGNAL DESIGN ENGINEER Nisha Ladd MD CHEMISTRY [facility] [address] [place] [address], * SCAN-CT INTERPRETATION (09/17/2023 12:00 AM MIXED SIGNAL DESIGN ENGINEER) Anatomical Region Laterality Modality Other Scanner OTHER * SCAN-RADIOLOGY REPORT (09/15/2023 12:00 AM MIXED SIGNAL DESIGN ENGINEER) Anatomical Region Laterality Modality Other Scanner OTHER from Last 3 Months Advance Directives Documents on File Type Date Recorded Patient Calender Worker Helper Expl anation Healthcare Directive 06/23/2015 10:04 AM Layla MESSER, 06/16/2015 Latest Code Status on File Code Status Date Activated Date Inactivated Comments Full Code 04/21/2007 11:34 AM 04/22/2007 12:09 AM Care Teams Leases And Land Supervisor Relationship Specialty Start Date End Date Nisha Ladd MD [address] [place] [address] PCP - General Family Practice 02/22/19 Linette Cotter AuD Audiology 02/15/14 Shaggy Albrecht MD [address] [place] [address] Gastroenterology Internal Medicine 03/08/16 Sridhar La [address] [place] [address] Ophthalmology Ophthalmology Surgery 03/08/16
--- OUTSIDE RECORDS SUMMARY | 2023-11-25 14:25 | XMS_ITS | Referral Summary ---
Author Name Unknown Organization [facility] Address [address] [place] [address] Care Team Providers Care Doctor Naturopathic Name Role Phone Wilberto, Nisha Padgett Primary Care Provider [phone] Allergies No known active allergies Medications Medication [...] At Bedtime 0 11/02/2022 Active nystatin (MYCOSTATIN) 760538 UNIT/GM external powder 0 05/26/2022 Active simvastatin [...] Comments Blood Pressure 158/67 11/22/2022 12:15 PM IMPREGNATOR Pulse 69 11/22/2022 12:15 PM IMPREGNATOR Temperature 36.8 ??C (98.2 ??F) 11/22/2022 11:[address] Respiratory Rate 16 11/22/2022 12:15 PM IMPREGNATOR Oxygen Saturation 97% 11/22/2022 12:15 PM IMPREGNATOR Inhaled Oxygen Concentration - - Weight 66.7 kg (147 lb 1.6 oz) 11/22/2022 8:57 A M IMPREGNATOR Height 162.6 cm (5' 4) 11/22/2022 8:57 AM IMPREGNATOR Body Mass Index 25.25 11/22/2022 8:57 AM IMPREGNATOR Plan of Treatment Not on file Care Teams Doctor Naturopathic Relationship Specialty Start Date End Date Nisha Ladd [address] [place] [address] PCP - General Family Medicine 11/22/22
--- OUTSIDE RECORDS SUMMARY | 2023-11-25 14:25 | XMS_ITS | Clinical Summary ---
Author Name Unknown Organization [facility] Address [address] [place] [address] Care Team Providers Care Resource Forester Name Role Phone Wilberto, Nisha Padgett Primary Care Provider [phone] Allergies No known active allergies Medications Medication [...] At Bedtime 0 11/02/2022 Active nystatin (MYCOSTATIN) 155423 UNIT/GM external powder 0 05/26/2022 Active simvastatin [...] Comments Blood Pressure 158/67 11/22/2022 12:15 PM SKEIN BANDER Pulse 69 11/22/2022 12:15 PM SKEIN BANDER Temperature 36.8 ??C (98.2 ??F) 11/22/2022 11:[address] Respiratory Rate 16 11/22/2022 12:15 PM SKEIN BANDER Oxygen Saturation 97% 11/22/2022 12:15 PM SKEIN BANDER Inhaled Oxygen Concentration - - Weight 66.7 kg (147 lb 1.6 oz) 11/22/2022 8:57 A M SKEIN BANDER Height 162.6 cm (5' 4) 11/22/2022 8:57 AM SKEIN BANDER Body Mass Index 25.25 11/22/2022 8:57 AM SKEIN BANDER Plan of Treatment Health Maintenance Due Date Last Done Comments ADVANCE CARE PLANNING 1942 ANNUAL REVIEW OF HM ORDERS 1940 DEXA 1942 LIPID 1942 RSV VACCINE ( & 60+) (1 [...] age to complete this topic Care Teams Resource Forester Relationship Specialty Start Date End Date Nisha Ladd [address] [place] [address] PCP - General Family Medicine 11/22/22
[2023-11-25] MEDS: 0.9 % SODIUM CHLORIDE 1000 ml 1,000 ML 500 ML IV (15:00)
[2023-11-25 15:01] LABS: HCO3 VBG 19 mmol/L (21-28); Lactate* 1.4 mmol/L (0.5-1.9); PCO2 VBG 37 mmHG (40-50); pH VBG 7.317 (7.32-7.43)
[2023-11-25 15:04] LABS: Eosinophils Absolute Auto 0.04 K/uL (0.00-0.50); Eosinophils Percent Auto 0.8 % (0.0-7.0); Hematocrit 40.7 % (33.0-51.0); Hemoglobin* 13.9 gm/dL (12.0-16.0); Immature Granulocytes Abs Auto 0.08 K/uL (0.00-0.30); Immature Granulocytes Pct Auto 1.6 %; Lymphocytes Absolute Auto 1.27 K/uL (0.90-2.90); Lymphocytes Percent Auto 25.7 % (20-44); Mean Corpuscular HGB Conc 34 gm/dL (32-36); Mean Corpuscular Hemoglobin 31 pg (26-34); Mean Corpuscular Volume 90 fL (80-100); Monocytes Percent Auto 10.7 % (0.0-11.0); Neutrophils Absolute Auto 3.02 K/uL (1.7-7.0); Neutrophils Percent Auto 61.2 % (42.0-72.0); Platelet Count* 211 K/uL (140-440); RDW Coefficient of Variation % 12.7 % (11.5-15.5); Red Blood Count 4.55 m/uL (4.00-5.20); White Blood Count* 4.94 K/uL (4.50-11.00)
[2023-11-25 15:22] LABS: Albumin* 4.1 g/dL (3.3-5.0); Chloride* 106 mmol/L (96-114); Slide Review Reflex No; Sodium* 134 mmol/L (135-149)
[2023-11-25 15:23] LABS: Potassium* 3.3 mmol/L (3.6-5.1)
[2023-11-25 15:25] LABS: Alkaline Phosphatase* 221 U/L (40-150); Aspartate Amino Transferase* 78 U/L (12-35); Bilirubin Total* 0.6 mg/dL (0.1-1.5); Blood Urea Nitrogen* 31 mg/dL (7-30); Calcium* 8.8 mg/dL (8.4-10.6); Carbon Dioxide* 14 mmol/L (20-32); Creatinine* 1.5 mg/dL (0.5-1.5); Estimated Glomerular Filt Rate 35 ml/min; Glucose* 111 mg/dL (60-115); Total Protein* 7.3 g/dL (6.0-8.3)
[2023-11-25 15:26] LABS: Alanine Aminotransferase* 65 U/L (4-35); Magnesium* 1.7 mg/dL (1.5-2.6)
[2023-11-25 15:37] LABS: Troponin I* 0.02 ng/mL (0.01-0.04)
[2023-11-25 15:39] LABS: Anion Gap 14 mEq/L (7-15)
[2023-11-25 15:42] LABS: PCR FLU A Negative PCR FLU A (Negative); PCR FLU B Negative PCR FLU B (Negative); PCR RSV Negative PCR RSV (Negative); SARS PCR* Negative SARS-CoV-2 (Negative)
[2023-11-25 16:12] LABS: Appearance Urine Clear (Clear); Bilirubin Urine Negative (Negative); Blood Urine Trace-intact (Negative); Color Urine Yellow (Yellow); Glucose Urine Negative (Negative); Ketones Urine Negative (Negative); Leukocyte Esterase Urine 1+ (Negative); Nitrite Urine Negative (Negative); Protein Urine Negative (Negative); Urobilinogen Urine 0.2 (0.2-1.0)
[2023-11-25 16:24] LABS: Bacteria Urine Few; Squamous Epithelial Cell Urine Few (None-Few)
== END 2023-11-25 17:09 | disposition home or self-care (01) ==
PROVIDERS: Emergency Provider Family Medicine; PCP Family Medicine
DX: K52.9 Noninfective gastroenteritis and colitis, unspecified (principal); E86.0 Dehydration
CPT/HCPCS: 36415; 80053; 81001; 82803; 83605; 83735; 84484; 85025; 87086; 87631; 94761; 96360; 96361; 99284; J7030

== ENCOUNTER 2024-04-06 20:19 | Emergency (ER) | payer MEDICARE, OTHER, SELFPAY ==
[2024-04-06] VITALS (15 sets, daily range): BP systolic 95–140; BP diastolic 47–91; PULSE 64–81; RESP 16; TEMP 36.4; O2SAT 92–99; BMI 24.0
--- NOTE | 2024-04-06 20:31 | ED.GENADULT ---
HPI - General Adult General Chief complaint: Syncope/Fainted Stated complaint: Syncope Time Seen by Provider: 04/06/24 20:31 History of Present Illness HPI narrative: Pt had a real bad case of diarrhea yesterday. This evening fainted in the kitchen, fall was witnessed. Fell to L side on the floor, didn't notice that she hit her head. 84-year-old woman presenting to the emergency department after a fall in her kitchen. Apparently felt to her left side. Describes having gotten up and gone to the kitchen and was suddenly feeling rather warm and then lightheaded like she might pass out and then she did. Tipped onto her left side Apparently was observed to fall. No seizure-like activity is described. Is not thought to have hit her head necessarily. Yesterday did have copious diarrhea of unknown etiology. Review of records shows a history of IBS. No preceding chest pain shortness of breath or sense of palpitations. Denies dysuria but there might be some urgency. Denies cardiovascular disease. Do see that she has been seen for acute can knee injury parent without is related to dehydration. She says she ?tries? to drink a lot of water. Family shaking their head no as she describes going through 2 large containers of water daily but not always. A Brennon she did admit. Related Data Home Medications ?Medication ?Instructions ?Recorded ?Confirmed alendronate 70 mg tablet 70 mg PO QWEEK 09/27/22 09/17/23 lisinopril 10 mg tablet 10 mg PO HS 09/27/22 09/17/23 simvastatin 40 mg tablet 40 mg PO HS 09/27/22 09/17/23 bupropion HCl 300 mg 24 hr tablet, 300 mg PO DAILY 09/28/22 09/17/23 extended release calcium carbonate (Antacid 400 mg PO DAILY 09/28/22 09/17/23 (calcium carbonate)) cyanocobalamin (vitamin B-12) 1,000 mcg PO DAILY 09/28/22 09/17/23 1,000 mcg capsule hydrochlorothiazide 25 mg tablet 25 mg PO DAILY 09/28/22 09/17/23 zinc acetate 50 mg (zinc) capsule 50 mg PO HS 09/28/22 09/17/23 omeprazole 20 mg capsule,delayed 20 mg PO DAILY 09/15/23 09/17/23 release buspirone 15 mg tablet 15 mg PO TID 09/17/23 09/17/23 mirtazapine 30 mg tablet 30 mg PO HS 09/17/23 09/17/23 nystatin 100,000 unit/gram topical 1 applic topical PRN 09/17/23 09/17/23 powder ([facility]) prochlorperazine maleate 10 mg 10 mg PO TID PRN 09/17/23 09/17/23 tablet Previous Rx's ?Medication ?Instructions ?Recorded acetaminophen 325 mg tablet 650 mg (2 x 325 mg) PO Q6H #120 09/20/23 tabs lidocaine 5 % topical patch 1 patch transdermal DAILY #15 ea 09/20/23 oxycodone 5 mg tablet 2.5 mg (1/2 x 5 mg) PO Q4H PRN #12 09/20/23 tabs loperamide 2 mg capsule 2 mg PO Q6H PRN loose stool #10 11/23/23 (Anti-Diarrheal (loperamide)) caps ondansetron 4 mg disintegrating 4 mg PO Q8H PRN nausea and 11/23/23 tablet vomiting #10 tabs Allergies Allergy/AdvReac Type Severity Reaction Status Date / Time No Known Drug Allergies Allergy Verified 04/06/24 20:28 Review of Systems Status of ROS: Reports: 6 or more systems reviewed and unremarkable except as noted in History and below [facility] Medical History Fall ?W19.XXXA - Unspecified fall, initial encounter (ICD-10) Discharge planning issues ?Z02.9 - Encounter for administrative examinations, unspecified (ICD-10) Generalized anxiety disorder ?F41.1 - Generalized anxiety disorder (ICD-10) Pre-diabetes ?R73.03 - Prediabetes (ICD-10) Major depression, recurrent ?F33.9 - Major depressive disorder, recurrent, unspecified (ICD-10) Hypercholesterolemia ?E78.00 - Pure hypercholesterolemia, unspecified (ICD-10) Other nonspecific abnormal cardiovascular system function study ?R94.39 - Abnormal result of other cardiovascular function study (ICD-10) Colon polyp ?K63.5 - Polyp of colon (ICD-10) RAFAELA (obstructive sleep apnea) ?G47.33 - Obstructive sleep apnea (adult) (pediatric) (ICD-10) CAD (coronary artery disease) ?I25.10 - Atherosclerotic heart disease of [place] coronary artery without angina pectoris (ICD-10) PLMD (periodic limb movement disorder) ?G47.61 - Periodic limb movement disorder (ICD-10) Pyoderma gangrenosa ?L88 - Pyoderma gangrenosum (ICD-10) Compression fracture of twelfth thoracic vertebra ?S22.080A - Wedge compression fracture of T11-T12 vertebra, initial encounter for closed fracture (ICD-10) Osteopenia ?M85.80 - Other specified disorders of bone density and structure, unspecified site (ICD-10) Hypertension ?I10 - Essential (primary) hypertension (ICD-10) IBS (irritable bowel syndrome) ?K58.9 - Irritable bowel syndrome without diarrhea (ICD-10) Esophageal reflux ?K21.9 - Gastro-esophageal reflux disease without esophagitis (ICD-10) Surgical History Postsurgical percutaneous transluminal coronary angioplasty (PTCA) status ?Z98.61 - Coronary angioplasty status (ICD-10) History of tonsillectomy and adenoidectomy ?Z90.89 - Acquired absence of other organs (ICD-10) History of esophagogastroduodenoscopy (EGD) ?Z98.890 - Other specified postprocedural states (ICD-10) History of colonoscopy ?Z98.890 - Other specified postprocedural states (ICD-10) History of laparoscopic cholecystectomy (~1998) ?Z90.49 - Acquired absence of other specified parts of digestive tract (ICD-10) History of lumpectomy of left breast ?Z98.890 - Other specified postprocedural states (ICD-10) Family History Mother Heart disease High cholesterol Maternal Grandfather Heart disease Social History Narrative: Lives with (who has chronic leukemia, chronic lymphedema and recurrent gout, impaired ambulation). Smoked 20 pack years, quit in 1991, no history of smokeless tobacco. Denies alcohol use. Denies recreational drug use. What is your current living situation?: I presently have a place to live Problems where you live: no known problems Problems where you live details: NA In the past 12 months, utilities in danger of being shut off: no In past 12 months, lack of transportation kept you from medical appts, meetings, work, or getting things needed for daily living: no In the past 12 mos, have been you worried that your food would run out before you had money to buy more?: never true In the past 12 mos, the food you bought just didn't last and you didn't have money to buy more?: never true Highest level of school completed/degree received: high school graduate Smoking Status: Former smoker Do you use any of these nicotine containing products: None Second hand tobacco smoke exposure: No How often do you have a drink containing alcohol: never AUDIT-C Alcohol total score: 0 Non-prescribed substance use: denies use Caffeine: No How often does anyone, including family, friends and others, physically hurt you: never How often does anyone, including family, friends and others, insult or talk down to you: never How often does anyone, including family, friends and others, threaten you with harm: never How often does anyone, including family, friends and others, scream or curse at you: never service: No Exam Narrative: Exam Narrative: Physical exam is noted to seem somewhat restless almost choreoathetoid type movements but mild. She has a 2/6 holosystolic murmur with radiation to the carotids. Lower extremities are well perfused with mild dependent edema. Abdomen is soft and nontender. Head is atraumatic. Cranial nerves 2-12 intact. GCS 15. A little hard of hearing. No pain to palpation over the extremities and was ambulatory into the emergency department. Neck is supple nontender. Back nontender with some thoracic kyphosis Const: Vital Signs, click to edit/add: Vital Signs - 24 hr 04/06/24 20:24 04/06/24 20:48 04/06/24 20:48 Temperature 97.5 F L Pulse Rate 78 Pulse Rate [Left P ulse Oximeter] 74 Pulse Rate [orthos tatic lying Left P ulse Oximeter] Pulse Rate [orthos tatic sitting Left Pulse Oximeter] Pulse Rate [orthos tatic standing Lef t Pulse Oximeter] Respiratory Rate 16 Blood Pressure Blood Pressure [Ri ght Upper Arm] 95/57 L Blood Pressure [or thostatic lying Ri ght Arm] Blood Pressure [or thostatic sitting Right Arm] Blood Pressure [or thostatic standing Right Arm] Pulse Oximetry 97 98 92 Oxygen Delivery Me thod Room Air 04/06/24 20:49 04/06/24 20:56 04/06/24 20:59 Temperature Pulse Rate 70 73 77 Pulse Rate [Left P ulse Oximeter] Pulse Rate [orthos tatic lying Left P ulse Oximeter] Pulse Rate [orthos tatic sitting Left Pulse Oximeter] Pulse Rate [orthos tatic standing Lef t Pulse Oximeter] Respiratory Rate 16 16 16 Blood Pressure 114/91 H 101/47 L 111/48 L Blood Pressure [Ri ght Upper Arm] Blood Pressure [or thostatic lying Ri ght Arm] Blood Pressure [or thostatic sitting Right Arm] Blood Pressure [or thostatic standing Right Arm] Pulse Oximetry 96 95 96 Oxygen Delivery Me thod Room Air Room Air Room Air 04/06/24 21:00 04/06/24 21:00 04/06/24 21:01 Temperature Pulse Rate 75 81 Pulse Rate [Left P ulse Oximeter] Pulse Rate [orthos tatic lying Left P ulse Oximeter] 69 Pulse Rate [orthos tatic sitting Left Pulse Oximeter] 68 Pulse Rate [orthos tatic standing Lef t Pulse Oximeter] 77 Respiratory Rate Blood Pressure 121/50 L Blood Pressure [Ri ght Upper Arm] Blood Pressure [or thostatic lying Ri ght Arm] 101/47 L Blood Pressure [or thostatic sitting Right Arm] 111/48 L Blood Pressure [or thostatic standing Right Arm] 121/50 L Pulse Oximetry 97 98 Oxygen Delivery Me thod 04/06/24 21:14 04/06/24 21:15 04/06/24 21:30 Temperature Pulse Rate 64 68 64 Pulse Rate [Left P ulse Oximeter] Pulse Rate [orthos tatic lying Left P ulse Oximeter] Pulse Rate [orthos tatic sitting Left Pulse Oximeter] Pulse Rate [orthos tatic standing Lef t Pulse Oximeter] Respiratory Rate Blood Pressure 133/60 Blood Pressure [Ri ght Upper Arm] Blood Pressure [or thostatic lying Ri ght Arm] Blood Pressure [or thostatic sitting Right Arm] Blood Pressure [or thostatic standing Right Arm] Pulse Oximetry 97 97 97 Oxygen Delivery Me thod 04/06/24 21:32 04/06/24 21:45 04/06/24 22:00 Temperature Pulse Rate 64 66 66 Pulse Rate [Left P ulse Oximeter] Pulse Rate [orthos tatic lying Left P ulse Oximeter] Pulse Rate [orthos tatic sitting Left Pulse Oximeter] Pulse Rate [orthos tatic standing Lef t Pulse Oximeter] Respiratory Rate Blood Pressure 140/56 H Blood Pressure [Ri ght Upper Arm] Blood Pressure [or thostatic lying Ri ght Arm] Blood Pressure [or thostatic sitting Right Arm] Blood Pressure [or thostatic standing Right Arm] Pulse Oximetry 99 99 97 Oxygen Delivery Me thod 04/06/24 22:02 04/06/24 22:15 Temperature Pulse Rate 67 69 Pulse Rate [Left P ulse Oximeter] Pulse Rate [orthos tatic lying Left P ulse Oximeter] Pulse Rate [orthos tatic sitting Left Pulse Oximeter] Pulse Rate [orthos tatic standing Lef t Pulse Oximeter] Respiratory Rate Blood Pressure 128/74 Blood Pressure [Ri ght Upper Arm] Blood Pressure [or thostatic lying Ri ght Arm] Blood Pressure [or thostatic sitting Right Arm] Blood Pressure [or thostatic standing Right Arm] Pulse Oximetry 97 98 Oxygen Delivery Me thod Documenting provider has reviewed patient's vital signs: yes Course Vital Signs Vital signs: Initial Vital Signs Temperature 97.5 F L 04/06/24 20:24 Temperature Source Temporal Artery Scan 04/06/24 20:24 Pulse Rate 74 04/06/24 20:24 Respiratory Rate 16 04/06/24 20:24 Blood Pressure 95/57 L 04/06/24 20:24 Blood Pressure Mean 69 L 04/06/24 20:24 Blood Pressure Position Sitting 04/06/24 20:24 Pulse Oximetry 97 04/06/24 20:24 Oxygen Delivery Method Room Air 04/06/24 20:24 Vital Signs Temperature 97.5 F L 04/06/24 20:24 Pulse Rate 74 04/06/24 20:24 Respiratory Rate 16 04/06/24 20:24 Blood Pressure 95/57 L 04/06/24 20:24 Pulse Oximetry 97 04/06/24 20:24 Oxygen Delivery Method Room Air 04/06/24 20:24 Temperature 97.5 F L 04/06/24 20:24 Pulse Rate 69 04/06/24 22:15 Respiratory Rate 16 04/06/24 20:59 Blood Pressure 128/74 04/06/24 22:02 Pulse Oximetry 98 04/06/24 22:15 Oxygen Delivery Method Room Air 04/06/24 20:59 Medical Decision Making MDM Narrative Medical decision making narrative: Would hydrate and check chemistries. Perhaps she has actually been drinking enough fluids to make herself hyponatremic. This does appear to have been an orthostatic event but would monitor as well for any arrhythmia/dysrhythmia. Anemia? Does not appear to have any lingering symptoms consistent with TIA or other CVA. Orthostatics were positive with is slightly more than 20 point rise in pulse though otherwise felt well. Labs are overall reassuring. No events on monitor. Urinalysis though collected shortly before departure looks to be positive with nitrite and good deal of white cells. I think it would be prudent to treat. Has had asymptomatic bacteriuria in the past however this urine looks more significant than before. Appears also to have a murmur of aortic stenosis. If this is the case I suppose this also could have contributed to an inability to compensate in an orthostatic event. See patient discharge plan for further discussion/plan Medical Records Medical records reviewed: Yes I reviewed the patient's medical records Lab Data Lab results reviewed: Yes I reviewed the patient's lab results Labs: Lab Results 04/06/24 04/06/24 04/06/24 Range/Units 21:10 21:10 21:10 WBC 8.73 (4.50-11.00) K/uL RBC 4.34 (4.00-5.20) m/uL Hgb 13.2 (12.0-16.0) gm/dL Hct 39.6 (33.0-51.0) % MCV 91 (80-100) fL MCH 30 (26-34) pg MCHC 33 (32-36) gm/dL RDW Coeff of [place] 13.2 (11.5-15.5) % Plt Count 208 (140-440) K/uL Neut % (Auto) 63.8 (42.0-72.0) % Lymph % (Auto) 28.3 (20-44) % [place] % (Auto) 6.4 (0.0-11.0) % Eos % (Auto) 1.3 (0.0-7.0) % Baso % (Auto) 0.1 (0.0-3.0) % Neut # (Auto) 5.57 (1.7-7.0) K/uL Lymph # (Auto) 2.47 (0.90-2.90) K/uL [place] # (Auto) 0.60 (0.00-0.90) K/UL Eos # (Auto) 0.11 (0.00-0.50) K/uL Baso # (Auto) 0.01 (0.00-0.30) K/uL Abs Immat Gran (auto) 0.01 (0.00-0.30) K/uL Imm/Tot Granulo (auto) 0.1 % Sodium Cancelled 139 Potassium Cancelled 3.8 Chloride Cancelled Carbon Dioxide Anion Gap BUN Creatinine Estimated Creat Clear Estimated GFR Glucose Lactate (0.5-1.9) mmol/L Calcium Magnesium (1.5-2.6) mg/dL Total Bilirubin Direct Bilirubin AST ALT Alkaline Phosphatase Troponin I (0.01-0.04) ng/mL C-Reactive Protein NT-Pro-B Natriuret Pep pg/mL Total Protein Albumin Urine Color (Yellow) Urine Appearance (Clear) Urine pH (5.0-8.5) Ur Specific [place] (1.000-1.030) Urine Protein (Negative) Urine Glucose (UA) (Negative) Urine Ketones (Negative) Urine Blood (Negative) Urine Nitrite (Negative) Urine Bilirubin (Negative) Urine Urobilinogen (0.2-1.0) Ur Leukocyte Esterase (Negative) Urine RBC (0-2) Urine WBC (0-5) Ur Squamous Epith Cells (None-Few) Urine Bacteria (None) 04/06/24 04/06/24 04/06/24 Range/Units 21:10 21:10 21:10 WBC (4.50-11.00) K/uL RBC (4.00-5.20) m/uL Hgb (12.0-16.0) gm/dL Hct (33.0-51.0) % MCV (80-100) fL MCH (26-34) pg MCHC (32-36) gm/dL RDW Coeff of [place] (11.5-15.5) % Plt Count (140-440) K/uL Neut % (Auto) (42.0-72.0) % Lymph % (Auto) (20-44) % [place] % (Auto) (0.0-11.0) % Eos % (Auto) (0.0-7.0) % Baso % (Auto) (0.0-3.0) % Neut # (Auto) (1.7-7.0) K/uL Lymph # (Auto) (0.90-2.90) K/uL [place] # (Auto) (0.00-0.90) K/UL Eos # (Auto) (0.00-0.50) K/uL Baso # (Auto) (0.00-0.30) K/uL Abs Immat Gran (auto) (0.00-0.30) K/uL Imm/Tot Granulo (auto) % Sodium Potassium Chloride 112 Carbon Dioxide Cancelled 19 L Anion Gap Cancelled 8 BUN Cancelled Creatinine Estimated Creat Clear Estimated GFR Glucose Lactate (0.5-1.9) mmol/L Calcium Magnesium (1.5-2.6) mg/dL Total Bilirubin Direct Bilirubin AST ALT Alkaline Phosphatase Troponin I (0.01-0.04) ng/mL C-Reactive Protein NT-Pro-B Natriuret Pep pg/mL Total Protein Albumin Urine Color (Yellow) Urine Appearance (Clear) Urine pH (5.0-8.5) Ur Specific [place] (1.000-1.030) Urine Protein (Negative) Urine Glucose (UA) (Negative) Urine Ketones (Negative) Urine Blood (Negative) Urine Nitrite (Negative) Urine Bilirubin (Negative) Urine Urobilinogen (0.2-1.0) Ur Leukocyte Esterase (Negative) Urine RBC (0-2) Urine WBC (0-5) Ur Squamous Epith Cells (None-Few) Urine Bacteria (None) 04/06/24 04/06/24 04/06/24 Range/Units 21:10 21:10 21:10 WBC (4.50-11.00) K/uL RBC (4.00-5.20) m/uL Hgb (12.0-16.0) gm/dL Hct (33.0-51.0) % MCV (80-100) fL MCH (26-34) pg MCHC (32-36) gm/dL RDW Coeff of [place] (11.5-15.5) % Plt Count (140-440) K/uL Neut % (Auto) (42.0-72.0) % Lymph % (Auto) (20-44) % [place] % (Auto) (0.0-11.0) % Eos % (Auto) (0.0-7.0) % Baso % (Auto) (0.0-3.0) % Neut # (Auto) (1.7-7.0) K/uL Lymph # (Auto) (0.90-2.90) K/uL [place] # (Auto) (0.00-0.90) K/UL Eos # (Auto) (0.00-0.50) K/uL Baso # (Auto) (0.00-0.30) K/uL Abs Immat Gran (auto) (0.00-0.30) K/uL Imm/Tot Granulo (auto) % Sodium Potassium Chloride Carbon Dioxide Anion Gap BUN 24 Creatinine Cancelled 1.3 Estimated Creat Clear Cancelled 28.81 Estimated GFR Cancelled Glucose Lactate (0.5-1.9) mmol/L Calcium Magnesium (1.5-2.6) mg/dL Total Bilirubin Direct Bilirubin AST ALT Alkaline Phosphatase Troponin I (0.01-0.04) ng/mL C-Reactive Protein NT-Pro-B Natriuret Pep pg/mL Total Protein Albumin Urine Color (Yellow) Urine Appearance (Clear) Urine pH (5.0-8.5) Ur Specific [place] (1.000-1.030) Urine Protein (Negative) Urine Glucose (UA) (Negative) Urine Ketones (Negative) Urine Blood (Negative) Urine Nitrite (Negative) Urine Bilirubin (Negative) Urine Urobilinogen (0.2-1.0) Ur Leukocyte Esterase (Negative) Urine RBC (0-2) Urine WBC (0-5) Ur Squamous Epith Cells (None-Few) Urine Bacteria (None) 04/06/24 04/06/24 04/06/24 Range/Units 21:10 21:10 21:10 WBC (4.50-11.00) K/uL RBC (4.00-5.20) m/uL Hgb (12.0-16.0) gm/dL Hct (33.0-51.0) % MCV (80-100) fL MCH (26-34) pg MCHC (32-36) gm/dL RDW Coeff of [place] (11.5-15.5) % Plt Count (140-440) K/uL Neut % (Auto) (42.0-72.0) % Lymph % (Auto) (20-44) % [place] % (Auto) (0.0-11.0) % Eos % (Auto) (0.0-7.0) % Baso % (Auto) (0.0-3.0) % Neut # (Auto) (1.7-7.0) K/uL Lymph # (Auto) (0.90-2.90) K/uL [place] # (Auto) (0.00-0.90) K/UL Eos # (Auto) (0.00-0.50) K/uL Baso # (Auto) (0.00-0.30) K/uL Abs Immat Gran (auto) (0.00-0.30) K/uL Imm/Tot Granulo (auto) % Sodium Potassium Chloride Carbon Dioxide Anion Gap BUN Creatinine Estimated Creat Clear Estimated GFR 41 Glucose Cancelled 98 Lactate 1.0 (0.5-1.9) mmol/L Calcium Cancelled 9.2 Magnesium 1.5 (1.5-2.6) mg/dL Total Bilirubin Cancelled Direct Bilirubin AST ALT Alkaline Phosphatase Troponin I (0.01-0.04) ng/mL C-Reactive Protein NT-Pro-B Natriuret Pep pg/mL Total Protein Albumin Urine Color (Yellow) Urine Appearance (Clear) Urine pH (5.0-8.5) Ur Specific [place] (1.000-1.030) Urine Protein (Negative) Urine Glucose (UA) (Negative) Urine Ketones (Negative) Urine Blood (Negative) Urine Nitrite (Negative) Urine Bilirubin (Negative) Urine Urobilinogen (0.2-1.0) Ur Leukocyte Esterase (Negative) Urine RBC (0-2) Urine WBC (0-5) Ur Squamous Epith Cells (None-Few) Urine Bacteria (None) 04/06/24 04/06/24 04/06/24 Range/Units 21:10 21:10 21:10 WBC (4.50-11.00) K/uL RBC (4.00-5.20) m/uL Hgb (12.0-16.0) gm/dL Hct (33.0-51.0) % MCV (80-100) fL MCH (26-34) pg MCHC (32-36) gm/dL RDW Coeff of [place] (11.5-15.5) % Plt Count (140-440) K/uL Neut % (Auto) (42.0-72.0) % Lymph % (Auto) (20-44) % [place] % (Auto) (0.0-11.0) % Eos % (Auto) (0.0-7.0) % Baso % (Auto) (0.0-3.0) % Neut # (Auto) (1.7-7.0) K/uL Lymph # (Auto) (0.90-2.90) K/uL [place] # (Auto) (0.00-0.90) K/UL Eos # (Auto) (0.00-0.50) K/uL Baso # (Auto) (0.00-0.30) K/uL Abs Immat Gran (auto) (0.00-0.30) K/uL Imm/Tot Granulo (auto) % Sodium Potassium Chloride Carbon Dioxide Anion Gap BUN Creatinine Estimated Creat Clear Estimated GFR Glucose Lactate (0.5-1.9) mmol/L Calcium Magnesium (1.5-2.6) mg/dL Total Bilirubin 0.7 Direct Bilirubin Cancelled 0.4 AST Cancelled 31 ALT Cancelled Alkaline Phosphatase Troponin I (0.01-0.04) ng/mL C-Reactive Protein NT-Pro-B Natriuret Pep pg/mL Total Protein Albumin Urine Color (Yellow) Urine Appearance (Clear) Urine pH (5.0-8.5) Ur Specific [place] (1.000-1.030) Urine Protein (Negative) Urine Glucose (UA) (Negative) Urine Ketones (Negative) Urine Blood (Negative) Urine Nitrite (Negative) Urine Bilirubin (Negative) Urine Urobilinogen (0.2-1.0) Ur Leukocyte Esterase (Negative) Urine RBC (0-2) Urine WBC (0-5) Ur Squamous Epith Cells (None-Few) Urine Bacteria (None) 04/06/24 04/06/24 04/06/24 Range/Units 21:10 21:10 21:10 WBC (4.50-11.00) K/uL RBC (4.00-5.20) m/uL Hgb (12.0-16.0) gm/dL Hct (33.0-51.0) % MCV (80-100) fL MCH (26-34) pg MCHC (32-36) gm/dL RDW Coeff of [place] (11.5-15.5) % Plt Count (140-440) K/uL Neut % (Auto) (42.0-72.0) % Lymph % (Auto) (20-44) % [place] % (Auto) (0.0-11.0) % Eos % (Auto) (0.0-7.0) % Baso % (Auto) (0.0-3.0) % Neut # (Auto) (1.7-7.0) K/uL Lymph # (Auto) (0.90-2.90) K/uL [place] # (Auto) (0.00-0.90) K/UL Eos # (Auto) (0.00-0.50) K/uL Baso # (Auto) (0.00-0.30) K/uL Abs Immat Gran (auto) (0.00-0.30) K/uL Imm/Tot Granulo (auto) % Sodium Potassium Chloride Carbon Dioxide Anion Gap BUN Creatinine Estimated Creat Clear Estimated GFR Glucose Lactate (0.5-1.9) mmol/L Calcium Magnesium (1.5-2.6) mg/dL Total Bilirubin Direct Bilirubin AST ALT 21 Alkaline Phosphatase Cancelled 106 Troponin I < 0.01 L (0.01-0.04) ng/mL C-Reactive Protein Cancelled < 0.5 L NT-Pro-B Natriuret Pep 721 pg/mL Total Protein Cancelled Albumin Urine Color (Yellow) Urine Appearance (Clear) Urine pH (5.0-8.5) Ur Specific [place] (1.000-1.030) Urine Protein (Negative) Urine Glucose (UA) (Negative) Urine Ketones (Negative) Urine Blood (Negative) Urine Nitrite (Negative) Urine Bilirubin (Negative) Urine Urobilinogen (0.2-1.0) Ur Leukocyte Esterase (Negative) Urine RBC (0-2) Urine WBC (0-5) Ur Squamous Epith Cells (None-Few) Urine Bacteria (None) 04/06/24 04/06/24 04/06/24 Range/Units 21:10 21:10 22:20 WBC (4.50-11.00) K/uL RBC (4.00-5.20) m/uL Hgb (12.0-16.0) gm/dL Hct (33.0-51.0) % MCV (80-100) fL MCH (26-34) pg MCHC (32-36) gm/dL RDW Coeff of [place] (11.5-15.5) % Plt Count (140-440) K/uL Neut % (Auto) (42.0-72.0) % Lymph % (Auto) (20-44) % [place] % (Auto) (0.0-11.0) % Eos % (Auto) (0.0-7.0) % Baso % (Auto) (0.0-3.0) % Neut # (Auto) (1.7-7.0) K/uL Lymph # (Auto) (0.90-2.90) K/uL [place] # (Auto) (0.00-0.90) K/UL Eos # (Auto) (0.00-0.50) K/uL Baso # (Auto) (0.00-0.30) K/uL Abs Immat Gran (auto) (0.00-0.30) K/uL Imm/Tot Granulo (auto) % Sodium Potassium Chloride Carbon Dioxide Anion Gap BUN Creatinine Estimated Creat Clear Estimated GFR Glucose Lactate (0.5-1.9) mmol/L Calcium Magnesium (1.5-2.6) mg/dL Total Bilirubin Direct Bilirubin AST ALT Alkaline Phosphatase Troponin I (0.01-0.04) ng/mL C-Reactive Protein NT-Pro-B Natriuret Pep pg/mL Total Protein 7.0 Albumin Cancelled 4.3 Urine Color Yellow (Yellow) Urine Appearance Slightly Cloudy A (Clear) Urine pH 6.0 (5.0-8.5) Ur Specific [place] 1.020 (1.000-1.030) Urine Protein Negative (Negative) Urine Glucose (UA) Negative (Negative) Urine Ketones Trace A (Negative) Urine Blood 1+ A (Negative) Urine Nitrite Positive A (Negative) Urine Bilirubin Negative (Negative) Urine Urobilinogen 0.2 (0.2-1.0) Ur Leukocyte Esterase 2+ A (Negative) Urine RBC 5-10 A (0-2) Urine WBC >100 A (0-5) Ur Squamous Epith Cells Few (None-Few) Urine Bacteria Many A (None) ECG Data Attestation: I personally reviewed and interpreted this ECG as follows: (Normal sinus. rate of 70) Discharge Plan Discharge Clinical Impression: Orthostatic syncope, Cystitis Patient Disposition: Home w/ Parent or Adult Condition: Improved Additional Instructions: Keep trying to stay well-hydrated :) Take care transitions. I did hear a murmur today in your heart that might represent aortic stenosis. I do not have report of echocardiograms. If you do have aortic stenosis, this may have made you more likely in this circumstance to pass out. You might need an echocardiogram or other workup as it sounds like this has happened now a few times. Please discuss with your doctor. And what looks to be a urinary tract infection certainly could have contributed to this event as well. Prescribing cephalexin from [facility]. A urine culture will be pending here and if the antibiotic was not correct, we will call you. Return for increasing and persistent weakness, associated fever, repeat event, chest pain, shortness of breath. Prescriptions: No Action lisinopril 10 mg tablet 10 mg PO HS simvastatin 40 mg tablet 40 mg PO HS alendronate 70 mg tablet 70 mg PO QWEEK Patient Comments: ON SUNDAYS bupropion HCl 300 mg tablet extended release 24 hr 300 mg PO DAILY calcium carbonate [Antacid (calcium carbonate)] 200 mg calcium (500 mg) tablet,chewable 400 mg PO DAILY cyanocobalamin (vitamin B-12) 1,000 mcg capsule 1,000 mcg PO DAILY hydrochlorothiazide 25 mg tablet 25 mg PO DAILY zinc acetate 50 mg (zinc) capsule 50 mg PO HS omeprazole 20 mg capsule,delayed release(DR/EC) 20 mg PO DAILY buspirone 15 mg tablet 15 mg PO TID Patient Comments: TAKES 15MG QAM AND 30MG QHS mirtazapine 30 mg tablet 30 mg PO HS nystatin [Nyamyc] 100,000 unit/gram powder 1 applic topical PRN Patient Comments: STOMACH SORES prochlorperazine maleate 10 mg tablet 10 mg PO TID PRN Patient Comments: TAKES 2-3 TIMES DAILY PRN acetaminophen 325 mg Tablet 650 mg PO Q6H Qty: 120 0RF lidocaine 5 % Adhesive Patch,Medicated 1 patch transdermal DAILY Qty: 15 0RF Rx Instructions: OTC oxycodone 5 mg Tablet 2.5 mg PO Q4H PRNQty: 12 0RF loperamide [Anti-Diarrheal (loperamide)] 2 mg capsule 2 mg PO Q6H PRN (Reason: loose stool) Qty: 10 0RF ondansetron 4 mg tablet,disintegrating 4 mg PO Q8H PRN (Reason: nausea and vomiting) Qty: 10 0RF Follow Up/Referrals: Nisha Ladd MD [Primary Care Provider] - Stand Alone Forms: [facility] Info Instructions
--- OUTSIDE RECORDS SUMMARY | 2024-04-06 20:54 | XMS_ITS | Clinical Summary ---
Author Organization [facility] Address [place], [place] [address] Care Team Providers Care Calendar Control Clerk Blood Bank Name Role Phone Linette Cotter Unavailable Shaggy Albrecht MD Unavailable Sridhar La Unavailable Nisha Ladd MD Primary Care Provider Allergies No known active allergies Medications Medication Sig Dispensed Refills Start Date End Date Status durable medical equipment (DME)Indications:Essent ial hypertension Automated home BP cuff. Length of need: 99 1 Each 02/16/20 22 Active zinc 50 mg tablet Take 1 Tablet (50 mg) by mouth once daily. 0 11/02/19 23 Active Nyamyc powderIndications:Yeast infection of the skin APPLY ONE STRIP TOPICALLY TO AFFECTED AREA(S) THREE TIMES DAILY 60 g 9 06/01/20 23 Active loperamide (IMODIUM) 2 mg capsule Take by mouth. 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 90 Capsule 3 12/05/19 24 Active lisinopriL (PRINIVIL; ZESTRIL) 10 mg tabletIndications:Essen tial hypertension Take 1 Tablet (10 mg) by mouth once daily. 90 Tablet 3 12/05/19 24 Active simvastatin (ZOCOR) 40 mg tabletIndications:Pure hypercholesterolemia Take 1 Tablet (40 mg) by mouth at bedtime. 90 Tablet 3 12/05/19 24 Active alendronate (FOSAMAX) 70 mg tabletIndications:Compr ession fracture of twelfth thoracic vertebra with routine healing,Osteoporosis, unspecified osteoporosis type, unspecified pathological fracture presence Take 1 Tablet (70 mg) by mouth once a week in the morning. Take on empty stomach with full glass of water. Do not lie down for 1 hr. 12 Tablet 3 12/05/19 24 Active mirtazapine (REMERON) 30 mg tabletIndications:Dysth ymia,Generalized anxiety disorder,Insomnia, unspecified type Take 1 Tablet (30 mg) by mouth at bedtime. 90 Tablet 1 01/17/20 24 Active calcium carbonate (CALCIUM 300 ORAL) Take 1,000 mg by mouth. Active vilazodone 20 mg tabletIndications:Dysth ymia,Moderate episode of recurrent major depressive disorder (HC),Generalized anxiety disorder Take 0.5 Tablets (10 mg) by mouth once daily with a meal. 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 For 2-3 nights; if tolerating well, increase to 2 tablets (50mg) at bedtime 60 Tablet 1 02/16/20 24 024 Discontinued buPROPion (WELLBUTRIN XL) 150 mg Extended-Release tabletIndications:Dysth ymia Take 1 Tablet (150 mg) by mouth once daily. 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 For 1 week, then raise to 1 tablet (10mg) by mouth once daily in the morning 30 Tablet 1 03/13/20 24 024 Discontinued(* Availability/F ormulary change/Cost of medication) Active Problems Problem Noted Date Diagnosed Date Generalized anxiety disorder 07/31/2018 Compression fracture of twel fth thoracic vertebra with routine healing 06/15/2016 Overview: Fosamax 07/2016, continue x10 years. Osteopenia 06/15/2016 Pyoderma gangrenosa 02/19/2013 Irritable bowel syndrome 08/05/2011 Overview: GI consult from 05/2010 Prediabetes 06/24/2011 PLMD (periodic limb movement disorder) 0 RAFAELA [...] Noted Date Diagnosed Date Resolved Date Major depression, recurrent 07/31/2018 03/15/2024 Major depressive disorder, r ecurrent episode, severe, without mention of psychotic behavior 05/13/2011 11/21/2012 Anxiety state, unspecified 05/13/2011 0 03/15/2024 Major depression, recurrent 04/08/2011 03/15/2024 RAFAELA 07/2010 AHI-12 08/31/2010 0 RAFAELA 07/2010 AHI-12 08/31/2010 0 NONSUSTAINED VENTRICULAR TACHYCARDIA 06/07/2007 02/15/2022 Depressive disorder, not elsewhere classified 11/21/2012 Other and unspecified angina pectoris 02/15/2022 Encounters Date Type Department Care Team Description 04/05/[address] [phone] Alex Garcia PsyD, LP Late Cancel Appointment (04/05/24) 03/30/2024 Refill [facility] [address] [place] [address] aVl Ray NP Refill Request (Quetiapine) 03/15/2024 Telephone [facility] [address] [place] [address] Val Ray NP Follow Up 03/13/2024 2:30 PM CDT Ancillary Procedure [facility] [address] [place] [address] 03/13/2024 2:00 PM CDT Office Visit [facility] [address] [place] [address] Val Ray NP Follow Up; Medication Management (feeling, crummy, it's one of those days) 03/13/2024 11:15 AM CDT Office Visit [facility] [address] [place] [address] Alex Garcia PsyD, LP Individual Therapy 03/13/2024 Travel 03/02/2024 11:00 AM CDT Telemedicine [facility] [address] [place] [address] Val Ray NP Medication Management (feeling, Ohh, I'm OK, not wonderful, and not real bad); Telehealth 03/02/2024 Travel 02/16/2024 3:00 PM CDT Office Visit [facility] [address] [place] [address] Val Ray NP Follow Up; Medication Management (feeling, umm, I don't know, tired, I'm also getting over a head cold) 02/16/2024 Telephone [facility] [address] [place] [address] Val Ray NP Form (Release of Information Form) 02/16/2024 Travel 02/06/2024 9:10 AM CDT [place] [facility] [place] [address] [place] [address] Meredith Baugh PA Vaginal Discharge 02/05/2024 Travel 02/02/2024 8:55 AM CDT Office Visit [facility] [address] [place] [address] Duncan Castillo DO Vaginal Problem ([place] funny and some itching x3 days - feels improved today ) 02/02/2024 Travel 01/26/2024 Refill [facility] [address] [place] [address] Nisha Ladd MD Refill Request (Hydrochlorothiazi de) 01/17/2024 3:00 PM CDT Office Visit [facility] [address] [place] [address] Val Ray, ROSALBA Medication Management (Not doing very good, doesn't think the medication is working) 01/17/2024 Travel 01/13/2024 Refill [facility] [address] [place] [address] Val Ray, ROSALBA Refill Request (Bupropion) from Last 3 Months Immunizations Name Administration Dates Next Due AMB Influenza, IIV3 (Age >=3 years)(Flu Clinic Only) 08/22/2008 AMB Influenza, IIV4 PF (=>6 mos Flulaval,Fluzone Fluarix)(Flu Clinic Only) 08/02/2013 Amb Influenza, Inactivated A IIV4 (Age 65+ Years) Preserv Free 08/07/2020 COVID-19 Vaccine Spikevax (M oderna 50mcg/0.5mL) 12YO+ [id number] Formula PF 12/05/2023 COVID-19 vaccine ([employer] NTech 30mcg/0.3mL) 12YO+ ED-SUCROSE PF, MDV 02/15/2022 COVID-19 vaccine ([employer] NT[employer] 30mcg/0.3mL) PF, MDV 01/21/2021,12/31/2020 Influenza A [...] Family History Medical History Relation Name Comments Cancer Brother Luis pancreatic Heart Disease Brother [place] Cancer Father skin Stroke Father Heart Disease Maternal Grandfather M I 60's Cancer Mother Heart Disease Mother stent Hyperlipidemia Mother Liver cancer Mother Hyperlipidemia Sister 1 Shaniqua Hypertension Sister 1 Shaniqua Other Sister 1 Shaniqua autoimmune hepa titis Cancer Sister 2 Sonia Skin Heart Disease Sister 2 Sonia Thyroid Disease Sister 3 Taylor Thyroid Disease Sister 4 Nanette Cancer Sister 6 Andie pre-cancerous s kin lesion Thyroid Disease Sister 6 Andie Cancer-breast No Family History Relation Name Status Comments Brother Luis Father Maternal Grandfather Mother Sister 1 Shaniqua Alive Sister 2 Sonia Sister 3 Taylor Alive Sister 4 Nanette Alive Sister 5 Josselyn Alive Sister 6 Andie Alive Social History Tobacco Use Types Packs/Day Years Used Date Smoking Tobacco: Former Cigarettes 1 20 0 10/24/1971 - 10/24/1991 Smokeless Tobacco: Never Tobacco Cessation:Counseling Given: Yes Comments:quit many years ago Alcohol Use Standard Drinks/Week Comments No 0 (1 standard drink = 0.6 oz pur e alcohol) PHQ-2 Answer Date Recorded PHQ-2 TOTAL SCORE 4 03/02/2024 Social Connections Answer Date Recorded Frequency of [...] Outcome GA Total Labor Labor/2nd/3rd Weight Sex Type Anes PTL Gin A1 A5 Name Clin Term Living Last Filed Vital Signs Vital Sign Reading Time Taken Comments Blood Pressure 143/67 03/13/2024 1:59 PM CDT Pulse 70 03/13/2024 1:59 PM CDT Temperature 36.4 ??C (97.5 ??F) 11/25/2023 1:18 PM CS T Respiratory Rate 20 11/19/2019 1:45 PM WAREHOUSE AND RECEIVING SUPERVISOR Oxygen Saturation 99% 02/06/2024 9:04 AM CDT Inhaled Oxygen Concentration - - Weight 64.8 kg (142 lb 12.8 oz) 03/13/2024 1:59 PM CDT Height 154.9 cm (5' 1) 12/05/2023 1:40 PM WAREHOUSE AND RECEIVING SUPERVISOR Body Mass Index 26.98 12/05/2023 1:40 PM WAREHOUSE AND RECEIVING SUPERVISOR Plan of Treatment Upcoming Encounters Date Type Department Care Team (Late st Contact Info) Description 04/17/2024 11:30 AM CDT Office Visit [address] [address] Val Ray NP [address] [place] [address] 04/19/2024 1:00 PM CDT Office Visit [facility] [address] [place] [phone] Alex Garcia PsyD, YOGI [address] [place] [address] 05/03/2024 1:45 PM CDT Office Visit [facility] [address] [place] [phone] Alex Garcia PsyD, YOGI [address] [place] [address] 05/08/2024 1:00 PM CDT Office Visit [facility] [address] [place] [phone] Alex Garcia PsyD, LP [address] [place] [address] Health Maintenance Due Date Last Done Comments COVID-19 vaccine series (2022-24 season) 2024 12/05/2023, 07/26/2022, 02/15/2022, Additional history exists Influenza for age 65+ 06/24/2024 07/15/2023 , 07/26/2022, 07/27/2021, Additional history exists BMI (ht and wt on same day) for age 18+ 12/05/2024 12/05/2023, 03/24/2023, 02/24/2023, Additional history exists Medicare Wellness for age 65+ 12/05/2024, 11/29/2022, 11/23/2019, Additional history exists Depression screening for age 12+ 03/02/2025 03/02/2024, 02/16/2024, 02/16/2024, Additional history exists Tetanus booster 08/02/2033 08/02/2023, 05/25, 04/19/2005 Pneumococcal series for age 65+ Completed 5, 06/10/2008 Zoster (shingles) series for age 50+ Completed 10/31/2020, 08/11/2020 Tdap Completed 08/02/2023, 06/18/2011 DEXA/DXA scan for age 65+ Completed 2023, 02/16/2022, 03/09/2016, Additional history exists Procedures Procedure Name Priority Date/Time Associated Diagnosis Comments XR DXA BONE DENSITY 2 SITES AXIAL Routine 03/13/2024 2:50 PM CDT Menopause TRICHOMONAS, QUAN, AND BACTERIAL VAGINOSIS BY JANKI Routine 02/06/2024 9:29 AM CDT Vaginal discharge URINALYSIS MICROSCOPIC Routine 02/02/2024 9:12 AM CDT Dysuria UA W/ SEDIMENT EXAM REFLEXED PER CRITERIA Routine 02/02/2024 9:12 AM CDT Dysuria from Last 3 Months Results * (ABNORMAL) XR DXA BONE DENSITY 2 SITES AXIAL (03/13/2024 2:50 PM CDT) Anatomical Region Laterality Modality Spine, HIPS, HIPL, HIPR Other Impressions 03/15/2024 9:06 AM CDT Osteoporosis. Due to the stability of the bone density, continue present medication if indicated. RECOMMENDATIONS: The National Osteoporosis Foundation recommends pharmacologic treatment for patients with T-scores of -2.5 or less, patients with prior history of fragility fractures, or patients with 10-year probability of greater than 3% at hips or greater than 20% of suffering major osteoporotic fractures. Recommend continued optimization of calcium and vitamin D intake through dietary means and/or supplementation and regular exercise. Continue current Alendronate (Fosamax) medication treatment. Consider a drug holiday from bisphosphonates if indicated. Jodi Saenz PA-C [facility] 03/15/2024 Narrative 03/15/2024 9:06 AM CDT For Patients: Results are automatically released to your [facility] account once available, in compliance with federal regulations. This means that you may see your results before your provider has had a chance to review them. Please allow 2-3 business days for your provider to comment on the results. XR DXA Bone Mineral Density (BMD) EXAM LOCATION: [address] [address] PATIENT NAME: Ene Delgado DATE OF : 1940 EXAM DATE: 03/13/2024 REQUESTING PROVIDER: Nisha Ladd MD GENDER AT : female HEIGHT: 5' 1 (12/05/2023) WEIGHT: ??142 lb 12.8 oz (03/13/2024) MENOPAUSAL STATUS: Postmenopausal RACE/ETHNICITY: White RISK FACTORS: Height Loss (2 inches or more), History of Fragility Fracture (at a major site), Smoking (prior), and White Race CURRENT MEDICATION FOR BONE LOSS: Alendronate (Fosamax) INDICATION: Menopause COMPARISON DATE(S): 2021 DXA scans are compared to prior studies for a patient only when the two (or more) studies were performed on the same scanner. It is not possible to compare data generated on one scanner to data from another because there are not standards in DXA equipment. This applies even if the two scanners are made by the same cnc grinder. PROCEDURE: Dual-energy x-ray absorptiometry performed with routine technique. Reporting is completed in the form of a T-score. The T-score represents the standard deviation from peak bone mass based on young healthy adult. A Z-score is used for diagnosis in premenopausal women, and for men under the age of 50. FINDINGS: RESULT LUMBAR SPINE L1 - L4 (EXCLUDE L2, L3) BMD: 0.909 g/cm2 T-Score: - 2.1 Z-Score: - 0.2 Change from prior in 2021: ??Increase 1.0%. RESULTS FEMUR Left femoral neck BMD: 0.690 g/cm2 T-Score: - 2.5 Z-Score: - 0.2 Change from prior in 2021: ??Decrease 1.3%. Right femoral neck BMD: 0.689 g/cm2 T-Score: - 2.5 Z-Score: - 0.2 Change from prior in 2021: ??Decrease 4.7%. Left hip BMD: 0.702 g/cm2 T-Score: - 2.4 Z-Score: - 0.3 Change from prior in 2021: ??Decrease 8.2%. Right hip BMD: 0.675 g/cm2 T-Score: - 2.6 Z-Score: - 0.5 Change from prior in 2021: ??Decrease 6.3%. WHO criteria: Normal: T-score at or above -1 SD Osteopenia: T-score between -1.1 and -2.4 SD Osteoporosis: T-score at or below -2.5 SD Nisha Ladd MD DEXA * TRICHOMONAS, QUAN, AND BACTERIAL VAGINOSIS BY JANKI (02/06/2024 9:29 AM CDT) Pathologist [facility] QUAN SPECIES Negative Negative 10:45 PM CDT [facility] QUAN GLABRATA Negative Negative 02/06/2024 10:45 PM CDT [facility] TRICHOMONAS VVA Negative Negative 10:45 PM CDT [facility] BACTERIAL VAGINOSIS Negative Negative 02/06/2024 10:45 PM CDT [facility] Other VAGINAL SWAB / Unknown Non-Blood / Unknown 02/06/2024 9:29 AM CDT 02/06/2024 9:29 AM CDT Meredith BARNARD [facility] [address] [place] [address], * URINALYSIS MICROSCOPIC (02/02/2024 9:12 AM CDT) RBC None Seen 0-2, None Seen /HPF 02/02/2024 9:30 AM CDT [facility] WBC 0-2 0-2, 3-5, None Seen /HPF 02/02/2024 9:30 AM CDT [facility] BACTERIA Few None Seen, Rare, Few Bacteria/ HPF 02/02/2024 9:30 AM CDT [facility] EPITHELIAL CELLS None Seen None Seen, Few Epi/HPF 02/02/2024 9:30 AM CDT [facility] Urine URINE SPECIMEN / Unknown Non-Blood / Unknown 02/02/2024 9:12 AM CDT 02/02/2024 9:19 AM CDT Duncan Castillo DO URINE [facility] [address] [place] [address], * (ABNORMAL) UA W/ SEDIMENT EXAM REFLEXED PER CRITERIA (02/02/2024 9:12 AM CDT) COLOR Yellow Yellow Color 02/02/2024 9:30 AM CDT [facility] CLARITY Clear Clear Clarity 02/02/2024 9:30 AM CDT [facility] SPECIFIC GRAVITY,URINE 1.015 1.010, 1.015, 1.020, 1.025 02/02/2024 9:30 AM CDT [facility] PH,URINE 6.5 6.0, 7.0, 8.0, 5.5, 6.5, 7.5, 8.5 02/02/2024 9:30 AM CDT [facility] UROBILINOGEN, QUALITATIVE Normal Normal EU/dl 02/02/2024 9:30 AM CDT [facility] PROTEIN, URINE Negative Negative mg/dL 02/02/2024 9:30 AM CDT [facility] GLUCOSE, URINE Negative Negative mg/dL 02/02/2024 9:30 AM CDT [facility] KETONES,URINE Negative Negative mg/dL 02/02/2024 9:30 AM CDT [facility] BILIRUBIN,URI NE Negative Negative 02/02/2024 9:30 AM CDT [facility] OCCULT BLOOD,URINE Negative Negative 02/02/2024 9:30 AM CDT [facility] NITRITE Negative Negative 02/02/2024 9:30 AM CDT [facility] LEUKOCYTE ESTERASE Small(A) Negative 02/02/2024 9:30 AM CDT [facility] Urine URINE SPECIMEN / Unknown Non-Blood / Unknown 02/02/2024 9:12 AM CDT 02/02/2024 9:19 AM CDT Duncan Castillo DO URINE Performing Organization Address City/State/[facility] Co de Phone Number [facility] [address] [place] [address], from Last 3 Months Advance Directives Documents on File Type Date Recorded Patient Optical Instrument Repairer Expl anation Healthcare Directive 06/23/2015 10:04 AM A Genaro MESSER, 06/16/2015 * Full Code (Latest Code Status on File) Date Activated Date Inactivated Comments 04/21/2007 11:34 AM 04/22/2007 12:09 AM Care Teams Calendar Control Clerk Blood Bank Relationship Specialty Start Date End Date Nisha Ladd MD [address] [place] [address] PCP - General Family Practice 02/22/19 Linette Cotter AuD Audiology 02/15/14 Shaggy Albrecht MD [address] [place] [address] Gastroenterology Internal Medicine 03/08/16 Sridhar La [address] [place] [address] Ophthalmology Ophthalmology Surgery 03/08/16
--- OUTSIDE RECORDS SUMMARY | 2024-04-06 20:54 | XMS_ITS | Clinical Summary ---
Author Organization [facility] Address [address] [place] [id number] Care Team Providers Care Retrieval Specialist Name Role Phone Nisha Ladd MD Primary Care Provider Allergies No known active allergies Medications Medication Sig Dispensed Refills Start Date End Date Status alendronate (FOSAMAX) 70 MG tablet Take 70 mg by mouth 02/15/2022 Active buPROPion (WELLBUTRIN XL) 300 MG 24 hr tablet TAKE ONE TABLET BY MOUTH EVERY MORNING PT will call when needed 04/16/2022 Active busPIRone (BUSPAR) 15 MG tablet Take 1/2 tab by mouth twice daily for 1 week, then increase to 1 tablet twice daily 11/02/2022 Active hydrochlorothiazide (HYDRODIURIL) 25 MG tablet Take 25 mg by mouth 02/15/2022 Active lisinopril (ZESTRIL) 10 MG tablet Take 1 tablet by mouth daily 03/15/2022 Active mirtazapine (REMERON) 7.5 MG tablet Take 1 tablet by mouth At Bedtime 11/02/2022 Active nystatin (MYCOSTATIN) 961060 UNIT/GM external powder 05/26/2022 Active simvastatin (ZOCOR) 40 MG tablet Take 40 mg by mouth daily 02/15/2022 Active zolpidem (AMBIEN) 5 MG tablet Take 1 tablet by mouth nightly as needed 09/15/2022 Active zinc gluconate 50 MG tablet Take 50 mg by mouth daily Active calcium carbonate (TUMS) 500 MG chewable tablet Take 1 chew tab by mouth 2 times daily Active Cyanocobalamin (B-12) 1000 MCG TBCR Acti ve omeprazole (PRILOSEC) [address] [...] Comments Blood Pressure 158/67 11/22/2022 12:15 PM POWER SYSTEM DISPATCHER Pulse 69 11/22/2022 12:15 PM POWER SYSTEM DISPATCHER Temperature 36.8 ??C (98.2 ??F) 11/22/2022 11:[address] Respiratory Rate 16 11/22/2022 12:15 PM POWER SYSTEM DISPATCHER Oxygen Saturation 97% 11/22/2022 12:15 PM POWER SYSTEM DISPATCHER Inhaled Oxygen Concentration - - Weight 66.7 kg (147 lb 1.6 oz) 11/22/2022 8:57 A M POWER SYSTEM DISPATCHER Height 162.6 cm (5' 4) 11/22/2022 8:57 AM POWER SYSTEM DISPATCHER Body Mass Index 25.25 11/22/2022 8:57 AM POWER SYSTEM DISPATCHER Plan of Treatment Health Maintenance Due Date [...] 2023 07/26/2022, 02/15/2022, 08/04/2021, Additional history exists PHQ-2 (once per calendar year) 2023 INFLUENZA VACCINE (Season Ended) 2024 07/26/2022, 07/27/2021, 08/07/2020, Additional history exists Pneumococcal Vaccine: 65+ Years Completed 07/15/2015, 06/10/2008 [...] age to complete this topic Care Teams Retrieval Specialist Relationship Specialty Start Date End Date Nisha Ladd MD [address] [place] [address] PCP - General Family Medicine 11/22/22
--- OUTSIDE RECORDS SUMMARY | 2024-04-06 20:54 | XMS_ITS | Referral Summary ---
Author Organization [facility] Address [address] [place] [id number] Care Team Providers Care Paraffin Plant Sweater Operator Name Role Phone Nisha Ladd MD Primary [...] mouth At Bedtime 11/02/2022 Active nystatin (MYCOSTATIN) 617299 UNIT/GM external powder 05/26/2022 Active simvastatin (ZOCOR) [...] Comments Blood Pressure 158/67 11/22/2022 12:15 PM MICROSOFT CRM DEVELOPER Pulse 69 11/22/2022 12:15 PM MICROSOFT CRM DEVELOPER Temperature 36.8 ??C (98.2 ??F) 11/22/2022 11:[address] Respiratory Rate 16 11/22/2022 12:15 PM MICROSOFT CRM DEVELOPER Oxygen Saturation 97% 11/22/2022 12:15 PM MICROSOFT CRM DEVELOPER Inhaled Oxygen Concentration - - Weight 66.7 kg (147 lb 1.6 oz) 11/22/2022 8:57 A M MICROSOFT CRM DEVELOPER Height 162.6 cm (5' 4) 11/22/2022 8:57 AM MICROSOFT CRM DEVELOPER Body Mass Index 25.25 11/22/2022 8:57 AM MICROSOFT CRM DEVELOPER Plan of Treatment Not on file Care Teams Paraffin Plant Sweater Operator Relationship Specialty Start Date End Date Nisha Ladd MD [address] [facility] [address] PCP - General Family Medicine 11/22/22
[2024-04-06 21:21] LABS: Basophils Absolute Auto 0.01 K/uL (0.00-0.30); Basophils Percent Auto 0.1 % (0.0-3.0); Eosinophils Absolute Auto 0.11 K/uL (0.00-0.50); Eosinophils Percent Auto 1.3 % (0.0-7.0); Hematocrit 39.6 % (33.0-51.0); Hemoglobin* 13.2 gm/dL (12.0-16.0); Immature Granulocytes Abs Auto 0.01 K/uL (0.00-0.30); Immature Granulocytes Pct Auto 0.1 %; Lymphocytes Absolute Auto 2.47 K/uL (0.90-2.90); Lymphocytes Percent Auto 28.3 % (20-44); Mean Corpuscular HGB Conc 33 gm/dL (32-36); Mean Corpuscular Hemoglobin 30 pg (26-34); Mean Corpuscular Volume 91 fL (80-100); Monocytes Percent Auto 6.4 % (0.0-11.0); Neutrophils Absolute Auto 5.57 K/uL (1.7-7.0); Neutrophils Percent Auto 63.8 % (42.0-72.0); Platelet Count* 208 K/uL (140-440); RDW Coefficient of Variation % 13.2 % (11.5-15.5); Red Blood Count 4.34 m/uL (4.00-5.20); White Blood Count* 8.73 K/uL (4.50-11.00)
[2024-04-06 21:25] LABS: Slide Review Reflex No
[2024-04-06 21:42] LABS: Albumin* 4.3 g/dL (3.3-5.0); Chloride* 112 mmol/L (96-114)
[2024-04-06 21:43] LABS: Potassium* 3.8 mmol/L (3.6-5.1); Sodium* 139 mmol/L (135-149)
[2024-04-06 21:45] LABS: Alkaline Phosphatase* 106 U/L (40-150); Anion Gap 8 mEq/L (7-15); Aspartate Amino Transferase* 31 U/L (12-35); Bilirubin Direct* 0.4 mg/dL (0.0-0.5); Bilirubin Total* 0.7 mg/dL (0.1-1.5); Carbon Dioxide* 19 mmol/L (20-32); Creatinine* 1.3 mg/dL (0.5-1.5); Est. Creatinine Clearance* 28.81; Estimated Glomerular Filt Rate 41 ml/min
[2024-04-06 21:46] LABS: Alanine Aminotransferase* 21 U/L (4-35); Blood Urea Nitrogen* 24 mg/dL (7-30); Calcium* 9.2 mg/dL (8.4-10.6); Glucose* 98 mg/dL (60-115); Magnesium* 1.5 mg/dL (1.5-2.6)
[2024-04-06 21:49] LABS: C Reactive Protein* < 0.5 mg/dL (0.5-1.0)
[2024-04-06 22:01] LABS: NT Pro B Type NatriureticPept* 721 pg/mL; Troponin I* < 0.01 ng/mL (0.01-0.04)
[2024-04-06 22:49] LABS: Appearance Urine Slightly Cloudy (Clear); Bilirubin Urine Negative (Negative); Blood Urine 1+ (Negative); Color Urine Yellow (Yellow); Glucose Urine Negative (Negative); Ketones Urine Trace (Negative); Leukocyte Esterase Urine 2+ (Negative); Nitrite Urine Positive (Negative); Protein Urine Negative (Negative); Urobilinogen Urine 0.2 (0.2-1.0)
[2024-04-06 22:52] LABS: Bacteria Urine Many; Squamous Epithelial Cell Urine Few (None-Few); WBC Urine >100 (0-5)
== END 2024-04-06 23:53 | disposition home or self-care (01) ==
PROVIDERS: Emergency Provider Family Medicine; PCP Family Medicine
DX: R55 Syncope and collapse (principal); N30.90 Cystitis, unspecified without hematuria
CPT/HCPCS: 36415; 80048; 80076; 81001; 83605; 83735; 83880; 84484; 85025; 86140; 87086; 87186; 94761; 99283; 99284